=== PATIENT | female | born 1960 | race African-American/Black ===

== ENCOUNTER 2016-12-04 05:17 | Day surgery (SDC) | payer MEDICARE ==
[2016-12-02 08:30] LABS: HEMATOCRIT 31.9 % (36.0-47.0); HEMOGLOBIN 10.4 g/dL (12.0-15.5); HGB HCT DIFFERENCE -0.7; MEAN CORPUSCULAR HEMOGLOBIN 25.3 pg (27.0-33.4); MEAN CORPUSCULAR HGB CONC 32.5 g/dL (32.0-36.0); MEAN CORPUSCULAR VOLUME 78 fl (80-97); RED CELL DISTRIBUTION WIDTH 14.4 % (11.5-14.0); WHITE BLOOD COUNT 6.1 10^3/uL (4.0-10.5)
[2016-12-02 08:50] LABS: ALANINE AMINOTRANSFERASE 78 U/L (9-52); ALBUMIN 4.5 g/dL (3.5-5.0); ALKALINE PHOSPHATASE 112 U/L (38-126); ANION GAP 16 (5-19); ASPARTATE AMINO TRANSFERASE 51 U/L (14-36); BILIRUBIN,DIRECT 0.2 mg/dL (0.0-0.4); BILIRUBIN,TOTAL 0.4 mg/dL (0.2-1.3); BLOOD UREA NITROGEN 20 mg/dL (7-20); CALCIUM 8.8 mg/dL (8.4-10.2); CARBON DIOXIDE 20 mmol/L (22-30); CHLORIDE 101 mmol/L (98-107); CREATININE RESULT 1.52 mg/dL (0.52-1.25); GLUCOSE 148 mg/dL (75-110); POTASSIUM 3.8 mmol/L (3.6-5.0); SODIUM 136.8 mmol/L (137-145); TOTAL PROTEIN 7.6 g/dL (6.3-8.2)
--- NOTE | 2016-12-02 22:06 | EKG REPORT ---
SEVERITY:- ABNORMAL ECG - SINUS OR ECTOPIC ATRIAL TACHYCARDIA NONSPECIFIC INTRAVENTRICULAR CONDUCTION DELAY PROBABLE LEFT VENTRICULAR HYPERTROPHY : Confirmed by: Annamaria Vasquez MD 02-Dec-2016 22:05:59
[~2016-12-04 05:17] MED LIST: CEFAZOLIN 2 GM/D5W RTU 2 GM/50 ML RTUPB IV PRN; LACTATED RINGERS 1000 ML IV PRN
[2016-12-04 06:24] VITALS: BP 124/86
[2016-12-04] MEDS ORDERED: MIDAZOLAM 2 MG/2 ML INJ ONE (07:15)
[2016-12-04] MEDS ORDERED: FENTANYL CITRATE INJ/PF 100 MCG/2 ML AMPUL ONE (07:15)
[2016-12-04] MEDS ORDERED: PROPOFOL INJ 200 MG/20 ML VIAL IV ONE (07:16)
[2016-12-04] MEDS ORDERED: ACETAMINOPHEN 0 ML IV ONE (07:16)
[2016-12-04 08:14] LABS: ANION GAP 18 (5-19); BLOOD UREA NITROGEN 22 mg/dL (7-20); CALCIUM 9.4 mg/dL (8.4-10.2); CARBON DIOXIDE 19 mmol/L (22-30); CHLORIDE 104 mmol/L (98-107); CREATININE RESULT 1.37 mg/dL (0.52-1.25); GLUCOSE 171 mg/dL (75-110); POTASSIUM 3.8 mmol/L (3.6-5.0)
--- NOTE | 2016-12-04 20:17 | XCELERA REPORT ---
[address] [address] Transthoracic Echocardiogram Report Name: VICK NAVARRO Age: 56 yrs Gender: Female : 1960 Patient Status: Outpatient Patient Location: [facility] Study Date: 12/04/2016 08:50 AM Height: 64 in Weight: 278 lb BSA: 2.2 m2 Procedure: A complete two-dimensional transthoracic echocardiogram was performed (2D, M-mode, spectral and color flow Doppler). The study was technically difficult with many images being suboptimal in quality. Reason For Study: EKG changes SOB Ordering Physician: DALILA HACKETT Performed By: Gardenia Delatorre Interpretation Summary The left ventricular ejection fraction is normal. Doppler measurements suggest pseudonormalized left ventricular relaxation, which is associated with grade II/IV or mild to moderate diastolic dysfunction There is borderline concentric left ventricular hypertrophy. The left ventricle is grossly normal size. Wall motion cannot be accurately commented on, but no definite regional wall motion abnormalities noted. The right ventricle is mildly dilated. The right ventricular systolic function is normal. The right atrium is normal in size The left atrial size is normal. There is no aortic valve stenosis No aortic regurgitation is present. There is a trace or physiologic amount of tricuspid regurgitation Tricuspid regurgitation jet envelope not well defined to measure RV systolic pressure accurately. Minimal pericardial effusion. MMode/2D Measurements \T\ Calculations RVDd: 3.2 cm LVIDd: 4.2 cm FS: 49.1 % Ao root diam: 2.8 cm IVSd: 0.96 cm LVIDs: 2.2 cm EDV(Teich): 79.9 ml LVPWd: 0.96 cm ESV(Teich): 15.4 ml Ao root area: 6.1 cm2 EF(Teich): 80.8 % LA dimension: 3.4 cm Doppler Measurements \T\ Calculations MV E max ye: MV P1/2t max ye: Ao V2 max: LV V1 max P.3 cm/sec 89.2 cm/sec 170.3 cm/sec 6.1 mmHg MV A max ye: MV P1/2t: 52.3 msec Ao max PG: LV V1 max: 84.9 cm/sec 11.6 mmHg 123.4 cm/sec MV E/A: 1.0 MVA(P1/2t): 4.2 cm2 MV dec slope: 499.3 cm/sec2 MV dec time: 0.17 sec PA V2 max: 125.0 cm/sec PA max P.3 mmHg Left Ventricle The left ventricle is grossly normal size. There is borderline concentric left ventricular hypertrophy. The left ventricular ejection fraction is normal. Doppler measurements suggest pseudonormalized left ventricular relaxation, which is associated with grade II/IV or mild to moderate diastolic dysfunction. Wall motion cannot be accurately commented on, but no definite regional wall motion abnormalities noted. Right Ventricle The right ventricle is mildly dilated. There is normal right ventricular wall thickness. The right ventricular systolic function is normal. Atria The right atrium is normal in size. The left atrial size is normal. Interarterial septum not well visualized and not well dopplered. Cannot comment on ASD/PFO presence. Mitral Valve The mitral valve is grossly normal. There is no mitral valve stenosis. There is a trace amount of mitral regurgitation. Aortic Valve The aortic valve is grossly normal. There is no aortic valve stenosis. No aortic regurgitation is present. Tricuspid Valve The tricuspid valve is not well visualized, but is grossly normal. There is no tricuspid stenosis. There is a trace or physiologic amount of tricuspid regurgitation. Tricuspid regurgitation jet envelope not well defined to measure RV systolic pressure accurately. Pulmonic Valve The pulmonic valve is not well visualized. Great Vessels The aortic root is not well visualized but is probably normal size. The inferior vena cava was not well visualized. Effusions Minimal pericardial effusion. : DALILA HACKETT > Becca Koehler
--- NOTE | 2016-12-04 22:25 | EKG REPORT ---
SEVERITY:- ABNORMAL ECG - SINUS TACHYCARDIA PROBABLE LEFT ATRIAL ABNORMALITY LEFT VENTRICULAR HYPERTROPHY ANTERIOR Q WAVES, POSSIBLY DUE TO LVH : Confirmed by: Annamaria Vasquez MD 04-Dec-2016 22:24:48
== END 2016-12-04 09:50 | disposition home or self-care (01) ==
LOC: OROUT 05:17
PROVIDERS: ATTEND Specialist
DX: I10 Essential (primary) hypertension (principal); Z53.9 Procedure and treatment not carried out, unspecified reason; Z88.5 Allergy status to narcotic agent; Z88.6 Allergy status to analgesic agent
CPT/HCPCS: 93005 ×2; 86900; 86901; 36415 ×2; 86850; 82962; 85027; 81025; 80048; 80053; 93306; 93010 ×2; J0690; J0131; J2250; J2704; J3010

== ENCOUNTER → 2017-01-27 | Outpatient (CLI) | payer MEDICAID, MEDICARE ==
--- NOTE | 2017-01-27 10:39 | RADIOLOGY REPORT (SQ) ---
EXAM DESCRIPTION: U/S RETROPERITON (RENAL/AORTA) COMPLETED DATE/TIME: 01/27/2017 10:15 am REASON FOR STUDY: CKD III (N18.3) N18.3 CHRONIC KIDNEY DISEASE, STAGE 3 (MODERATE) COMPARISON: None. TECHNIQUE: Dynamic and static grayscale images acquired of the kidneys and bladder and recorded on P ACS. Additional selected color Doppler and spectral images recorded. LIMITATIONS: None. FINDINGS: RIGHT KIDNEY: Normal size. Normal echogenicity. No solid or suspicious masses. No hydronep hrosis. No calcifications. LEFT KIDNEY: Normal size. Normal echogenicity. No solid or suspicious masses. No hydronephrosis. No calcifications. BLADDER: No masses. OTHER FINDINGS: No other significant finding. IMPRESSION: NORMAL RENAL AND BLADDER ULTRASOUND. TECHNICAL DOCUMENTATION: JOB ID: [id number] [email or web address]- All Rights Reserved
== END ==
LOC: RAD 08:45
PROVIDERS: ATTEND Internal Medicine Nephrology
DX: N18.3 Chronic kidney disease, stage 3 (moderate) (principal)
CPT/HCPCS: 76770

== ENCOUNTER → 2017-02-19 | Outpatient (CLI) | payer MEDICARE ==
[2017-02-19 07:48] LABS: HEMATOCRIT 28.5 % (36.0-47.0); HEMOGLOBIN 9.2 g/dL (12.0-15.5); HGB HCT DIFFERENCE -0.9; MEAN CORPUSCULAR HEMOGLOBIN 26.4 pg (27.0-33.4); MEAN CORPUSCULAR HGB CONC 32.3 g/dL (32.0-36.0); MEAN CORPUSCULAR VOLUME 82 fl (80-97); RED BLOOD COUNT 3.48 10^6/uL (3.72-5.28); RED CELL DISTRIBUTION WIDTH 16.3 % (11.5-14.0); WHITE BLOOD COUNT 6.7 10^3/uL (4.0-10.5)
[2017-02-19 07:51] LABS: AMORPHOUS SEDIMENT,URINE TRACE /HPF; APPEARANCE,URINE TURBID; BILIRUBIN,URINE NEGATIVE (NEGATIVE); GLUCOSE, URINE NEGATIVE (NEGATIVE); KETONES,URINE NEGATIVE (NEGATIVE); LEUKOCYTE ESTERASE,URINE MODERATE (NEGATIVE); NITRITE,URINE NEGATIVE (NEGATIVE); PROTEIN,URINE NEGATIVE (NEGATIVE); URINE SPECIFIC GRAVITY 1.003; UROBILINOGEN,URINE NEGATIVE mg/dL (<2.0)
[2017-02-19 07:56] LABS: ALBUMIN 4.2 g/dL (3.5-5.0); ANION GAP 13 (5-19); BLOOD UREA NITROGEN 14 mg/dL (7-20); CALCIUM 9.5 mg/dL (8.4-10.2); CARBON DIOXIDE 23 mmol/L (22-30); CHLORIDE 101 mmol/L (98-107); CREATININE RESULT 1.31 mg/dL (0.52-1.25); GLUCOSE 86 mg/dL (75-110); POTASSIUM 4.4 mmol/L (3.6-5.0); SODIUM 136.7 mmol/L (137-145); TOTAL PROTEIN 7.5 g/dL (6.3-8.2)
[2017-02-19 07:57] LABS: ALANINE AMINOTRANSFERASE 30 U/L (9-52); ALKALINE PHOSPHATASE 65 U/L (38-126); ASPARTATE AMINO TRANSFERASE 15 U/L (14-36); BILIRUBIN,DIRECT 0.3 mg/dL (0.0-0.4); BILIRUBIN,TOTAL 0.6 mg/dL (0.2-1.3)
[2017-02-20 12:37] LABS: CREATININE URINE 68.3 mg/dL (Not Estab.)
[2017-02-21 07:55] LABS: MICROALBUMIN URINE <3.0 ug/mL (Not Estab.)
== END ==
LOC: LAB 07:25
PROVIDERS: ATTEND Internal Medicine Nephrology
DX: I12.9 Hypertensive chronic kidney disease with stage 1 through stage 4 chronic kidney disease, or unspecified chronic kidney disease (principal); N18.3 Chronic kidney disease, stage 3 (moderate); E11.9 Type 2 diabetes mellitus without complications
CPT/HCPCS: 36415; 80053; 81001; 82043; 82570; 85027

== ENCOUNTER → 2017-03-19 | Outpatient (CLI) | payer MEDICARE, MEDICAID ==
[2017-03-19 08:20] LABS: HEMATOCRIT 30.8 % (36.0-47.0); HEMOGLOBIN 9.9 g/dL (12.0-15.5); HGB HCT DIFFERENCE -1.1; MEAN CORPUSCULAR HEMOGLOBIN 26.7 pg (27.0-33.4); MEAN CORPUSCULAR VOLUME 84 fl (80-97); RED BLOOD COUNT 3.69 10^6/uL (3.72-5.28); RED CELL DISTRIBUTION WIDTH 14.6 % (11.5-14.0); WHITE BLOOD COUNT 10.1 10^3/uL (4.0-10.5)
[2017-03-19 08:27] LABS: APPEARANCE,URINE SLIGHTLY-CLOUDY; BILIRUBIN,URINE NEGATIVE (NEGATIVE); GLUCOSE, URINE NEGATIVE (NEGATIVE); KETONES,URINE NEGATIVE (NEGATIVE); LEUKOCYTE ESTERASE,URINE NEGATIVE (NEGATIVE); NITRITE,URINE NEGATIVE (NEGATIVE); PROTEIN,URINE NEGATIVE (NEGATIVE); URINE SPECIFIC GRAVITY 1.012; UROBILINOGEN,URINE NEGATIVE mg/dL (<2.0)
[2017-03-19 08:53] LABS: ANION GAP 16 (5-19); BLOOD UREA NITROGEN 33 mg/dL (7-20); CALCIUM 9.8 mg/dL (8.4-10.2); CARBON DIOXIDE 19 mmol/L (22-30); CHLORIDE 106 mmol/L (98-107); CREATININE RESULT 1.48 mg/dL (0.52-1.25); GLUCOSE 136 mg/dL (75-110); POTASSIUM 4.8 mmol/L (3.6-5.0); SODIUM 140.6 mmol/L (137-145)
[2017-03-22 15:38] LABS: A/G RATIO 0.9 (0.7-1.7); ALBUMIN 2 3.6 g/dL (2.9-4.4); ALPHA-1-GLOBULIN 2 0.2 g/dL (0.0-0.4); GAMMA GLOBULIN 1.4 g/dL (0.4-1.8); PROTEIN TOTAL SERUM 7.6 g/dL (6.0-8.5)
== END ==
LOC: LAB 07:59
PROVIDERS: ATTEND Physician Assistant Medical
DX: E11.22 Type 2 diabetes mellitus with diabetic chronic kidney disease (principal); I12.9 Hypertensive chronic kidney disease with stage 1 through stage 4 chronic kidney disease, or unspecified chronic kidney disease; N18.3 Chronic kidney disease, stage 3 (moderate); D64.9 Anemia, unspecified
CPT/HCPCS: 36415; 80048; 81001; 84165; 85027

== ENCOUNTER → 2017-06-07 | Outpatient (CLI) | payer MEDICARE ==
--- NOTE | 2017-06-09 15:10 | WOMENS IMAGING REPORT ---
EXAM DESCRIPTION: 3D SCREENING MAMMO BILAT COMPLETED DATE/TIME: 06/07/2017 10:33 am REASON FOR STUDY: ROUTINE SCREENING; Z12.31 Z12.31 ENCNTR SCREEN MAMMOGRAM FOR MALIGNANT NEOPLASM O F PRETTY COMPARISON: Multiple since 2011 TECHNIQUE: Standard craniocaudal and mediolateral oblique views of each breast recorded using digita l acquisition and breast tomosynthesis. LIMITATIONS: None. FINDINGS: RIGHT BREAST MASSES: No suspicious masses. CALCIFICATIONS: No new or suspicious calcifications. ARCHITECTURAL DISTORTION: None. DEVELOPING DENSITY: None. ASYMMETRY: None noted. OTHER: No other significant findings. LEFT BREAST MASSES: In the deep central left breast at about the 12 o'clock and 3 o'clock positions, there are 2 well circumscribed low-density mammographic nodules less than a cm in size, likely breast parenchymal cysts. Cone compression views, left breast 90 mediolateral view and ultrasound are recommended for followup CALCIFICATIONS: No new or suspicious calcifications. ARCHITECTURAL DISTORTION: None. DEVELOPING DENSITY: None. ASYMMETRY: None noted. OTHER: No other significant findings. Read with the assistance of CAD. .[facility] - R2 Cenova Version 1.3 .[facility] Imaging - R2 Cenova Version 1.3 .[facility] Imaging - R2 Cenova Version 2.4 .[facility] - R2 Cenova Version 2.4 .[facility] - R2 Door Repairer Bus Version 9.2 IMPRESSION: No mammographic/tomosynthesis evidence for malignancy right breast. Low-density well-circumscribed probably benign nodules in the left breast for which additional cone c ompression views and ultrasound recommended BREAST DENSITY: b. There are scattered areas of fibroglandular density. BIRAD: 0 Incomplete: Needs Additional Imaging Evaluation and/or prior Mammograms for Comparison. RECOMMENDATION: RECOMMENDED FOLLOW-UP: Left breast diagnostic mammograms and ultrasound The patient will be contacted for additional imaging. COMMENT: The patient has been notified of the results by letter per SA requirements. Additional no tification policies are in place for contacting patient with suspicious or incomplete findings. Quality ID #[id number]: The [employer] recommends an annual screening mammogram for women aged 40 years or over. This facility utilizes a reminder system to ensure that all patients receive reminder letters, and/or direct phone calls for appointments. This includes reminders for routine scr eening mammograms, diagnostic mammograms, or other Breast Imaging Interventions when appropriate. Th is patient will be placed in the appropriate reminder system. The [employer] (ACR) has developed recommendations for screening MRI of the breast s in certain patient populations, to be used in conjunction with mammography. Breast MRI surveillanc e may be appropriate for women with more than 20% lifetime risk of developing breast cancer as deter mined by genetic testing, significant family history of the disease, or history of mantle radiation f or Hodgkins Disease. ACR Practice Guidelines 2008. DBT Technology DBT is a type of tomographic mammography. With conventional mammography, overlapping breast tissue ma y make lesions difficult to detect, even with good compression. DBT uses an x-ray tube that rotates a round the breast, taking images at different angles. These images are then combined to create thin sl ices of the breast that the radiologist can view as a 3D reconstruction. The [employer] unit can perform full-field digital mammograms (2D imaging); or DBT (3D imaging); or both, in a combination mode that quickly performs both the mammogram and the tomosynthesis scan while the breast is still compressed. PQRS 6045F: Fluoroscopic imaging is not utilized for breast tomosynthesis. TECHNICAL DOCUMENTATION: FINDING NUMBER: (1) ASSESSMENT: (1) JOB ID: [id number] [employer]- All Rights Reserved
== END ==
LOC: WI 08:59
PROVIDERS: ATTEND Internal Medicine Geriatric Medicine
DX: Z12.31 Encounter for screening mammogram for malignant neoplasm of breast (principal)
CPT/HCPCS: 77063; G0202; 77067

== ENCOUNTER → 2017-06-23 | Outpatient (CLI) | payer MEDICAID, MEDICARE ==
--- NOTE | 2017-06-23 18:11 | WOMENS IMAGING REPORT ---
EXAM DESCRIPTION: LEFT DIAGNOSTIC MAMMO W/CAD; U/S BREAST UNILAT LIMITED COMPLETED DATE/TIME: 06/23/2017 8:55 am; 06/23/2017 9:16 am REASON FOR STUDY: INCONCLUSIVE; R92.8; LEFT BREAST INCONCLUSIVE; R92.8 R92.8 OTH ABN AND INCONCLUSI VE FINDINGS ON DX IMAGING OF PRETTY COMPARISON: Multiple since 2011 TECHNIQUE: Compression craniocaudal and mediolateral oblique images of the breast recorded with digi mikayla acquisition. Left breast 90 mediolateral view. Left breast ultrasound was also performed. LIMITATIONS: None. FINDINGS: BREAST: Left MASSES: Low-density well-circumscribed mammographic nodules are present in the left breast deep centr al region and laterally. These were subsequently demonstrated to be simple cysts at ultrasound. CALCIFICATIONS: No new or suspicious calcifications. ARCHITECTURAL DISTORTION: None. DEVELOPING DENSITY: None. ASYMMETRY: None noted. OTHER: No other significant findings. Read with the assistance of CAD. .[facility] - R2 Cenova Version 1.3 .[facility] Imaging - R2 Cenova Version 1.3 .[facility] Imaging - R2 Cenova Version 2.4 .[facility] - R2 Cenova Version 2.4 .[facility] - R2 Local Driver Version 9.2 Left breast ultrasound: Mammographic nodules described on 06/07/2017 correlate with simple cysts as follows: Left breast 12 o'clock central position 4 mm Left breast 3 o'clock position, 8 mm Left breast 3 o'clock position 4 mm Left breast 11 to 12 o'clock position, 10 mm IMPRESSION: No mammographic or sonographic evidence for malignancy left breast BREAST DENSITY: b. There are scattered areas of fibroglandular density. BIRAD: 2 Benign findings. RECOMMENDATION: RECOMMENDED FOLLOW UP: Please continue yearly bilateral screening mammography in May. Please consider bilateral screening tomosynthesis SPECIFIC INTERVENTION/IMAGING/CONSULTATION RECOMMENDED:No additional intervention/ imaging/consultati on needed at this time. COMMUNICATION:Patient notified by letter COMMENT: The patient has been notified of the results by letter per MQSA requirements. Additional no tification policies are in place for contacting patient with suspicious or incomplete findings. Quality ID #[id number]: The [employer] recommends an annual screening mammogram for women aged 40 years or over. This facility utilizes a reminder system to ensure that all patients receive reminder letters, and/or direct phone calls for appointments. This includes reminders for routine scr eening mammograms, diagnostic mammograms, or other Breast Imaging Interventions when appropriate. Th is patient will be placed in the appropriate reminder system. The [employer] (ACR) has developed recommendations for screening MRI of the breast s in certain patient populations, to be used in conjunction with mammography. Breast MRI surveillanc e may be appropriate for women with more than 20% lifetime risk of developing breast cancer as deter mined by genetic testing, significant family history of the disease, or history of mantle radiation f or Hodgkins Disease. ACR Practice Guidelines 2008. TECHNICAL DOCUMENTATION: FINDING NUMBER: (1) ASSESSMENT: (1) JOB ID: [id number] [employer]- All Rights Reserved
--- NOTE | 2017-06-23 18:11 | WOMENS IMAGING REPORT ---
EXAM DESCRIPTION: LEFT DIAGNOSTIC MAMMO W/CAD; U/S BREAST UNILAT LIMITED COMPLETED DATE/TIME: 06/23/2017 8:55 am; 06/23/2017 9:16 am REASON FOR STUDY: INCONCLUSIVE; R92.8; LEFT BREAST INCONCLUSIVE; R92.8 R92.8 OTH ABN AND INCONCLUSI VE FINDINGS ON DX IMAGING OF PRETTY COMPARISON: Multiple since 2011 TECHNIQUE: Compression craniocaudal and mediolateral oblique images of the breast recorded with digi mikayla acquisition. Left breast 90 mediolateral view. Left breast ultrasound was also performed. LIMITATIONS: None. FINDINGS: BREAST: Left MASSES: Low-density well-circumscribed mammographic nodules are present in the left breast deep centr al region and laterally. These were subsequently demonstrated to be simple cysts at ultrasound. CALCIFICATIONS: No new or suspicious calcifications. ARCHITECTURAL DISTORTION: None. DEVELOPING DENSITY: None. ASYMMETRY: None noted. OTHER: No other significant findings. Read with the assistance of CAD. .[facility] - R2 Cenova Version 1.3 .[facility] Imaging - R2 Cenova Version 1.3 .[facility] Imaging - R2 Cenova Version 2.4 .[facility] - R2 Cenova Version 2.4 .[facility] - R2 Sand Blaster Version 9.2 Left breast ultrasound: Mammographic nodules described on 06/07/2017 correlate with simple cysts as follows: Left breast 12 o'clock central position 4 mm Left breast 3 o'clock position, 8 mm Left breast 3 o'clock position 4 mm Left breast 11 to 12 o'clock position, 10 mm IMPRESSION: No mammographic or sonographic evidence for malignancy left breast BREAST DENSITY: b. There are scattered areas of fibroglandular density. BIRAD: 2 Benign findings. RECOMMENDATION: RECOMMENDED FOLLOW UP: Please continue yearly bilateral screening mammography in May. Please consider bilateral screening tomosynthesis SPECIFIC INTERVENTION/IMAGING/CONSULTATION RECOMMENDED:No additional intervention/ imaging/consultati on needed at this time. COMMUNICATION:Patient notified by letter COMMENT: The patient has been notified of the results by letter per MQSA requirements. Additional no tification policies are in place for contacting patient with suspicious or incomplete findings. Quality ID #[id number]: The [employer] recommends an annual screening mammogram for women aged 40 years or over. This facility utilizes a reminder system to ensure that all patients receive reminder letters, and/or direct phone calls for appointments. This includes reminders for routine scr eening mammograms, diagnostic mammograms, or other Breast Imaging Interventions when appropriate. Th is patient will be placed in the appropriate reminder system. The [employer] (ACR) has developed recommendations for screening MRI of the breast s in certain patient populations, to be used in conjunction with mammography. Breast MRI surveillanc e may be appropriate for women with more than 20% lifetime risk of developing breast cancer as deter mined by genetic testing, significant family history of the disease, or history of mantle radiation f or Hodgkins Disease. ACR Practice Guidelines 2008. TECHNICAL DOCUMENTATION: FINDING NUMBER: (1) ASSESSMENT: (1) JOB ID: [id number] [email or web address]- All Rights Reserved
== END ==
LOC: WI 08:26
PROVIDERS: ATTEND Internal Medicine Geriatric Medicine
DX: N60.02 Solitary cyst of left breast (principal)
CPT/HCPCS: 76642; G0206

== ENCOUNTER → 2017-07-09 | Outpatient (CLI) | payer MEDICARE ==
[2017-07-09 08:27] LABS: HEMATOCRIT 29.7 % (36.0-47.0); HEMOGLOBIN 9.8 g/dL (12.0-15.5); HGB HCT DIFFERENCE -0.3; MEAN CORPUSCULAR HEMOGLOBIN 27.4 pg (27.0-33.4); MEAN CORPUSCULAR HGB CONC 32.9 g/dL (32.0-36.0); MEAN CORPUSCULAR VOLUME 83 fl (80-97); RED BLOOD COUNT 3.57 10^6/uL (3.72-5.28); RED CELL DISTRIBUTION WIDTH 14.3 % (11.5-14.0); WHITE BLOOD COUNT 8.3 10^3/uL (4.0-10.5)
[2017-07-09 08:42] LABS: AMORPHOUS SEDIMENT,URINE TRACE /HPF; APPEARANCE,URINE CLOUDY; BILIRUBIN,URINE NEGATIVE (NEGATIVE); GLUCOSE, URINE NEGATIVE (NEGATIVE); KETONES,URINE NEGATIVE (NEGATIVE); LEUKOCYTE ESTERASE,URINE LARGE (NEGATIVE); NITRITE,URINE NEGATIVE (NEGATIVE); PROTEIN,URINE NEGATIVE (NEGATIVE); URINE SPECIFIC GRAVITY 1.005; UROBILINOGEN,URINE NEGATIVE mg/dL (<2.0)
[2017-07-09 08:57] LABS: ANION GAP 14 (5-19); BLOOD UREA NITROGEN 10 mg/dL (7-20); CALCIUM 9.1 mg/dL (8.4-10.2); CARBON DIOXIDE 27 mmol/L (22-30); CHLORIDE 103 mmol/L (98-107); CREATININE RESULT 1.46 mg/dL (0.52-1.25); GLUCOSE 127 mg/dL (75-110); POTASSIUM 4.3 mmol/L (3.6-5.0); SODIUM 143.6 mmol/L (137-145)
== END ==
LOC: LAB 08:10
PROVIDERS: ATTEND Physician Assistant Medical
DX: E11.22 Type 2 diabetes mellitus with diabetic chronic kidney disease (principal); I12.9 Hypertensive chronic kidney disease with stage 1 through stage 4 chronic kidney disease, or unspecified chronic kidney disease; N18.3 Chronic kidney disease, stage 3 (moderate); D64.9 Anemia, unspecified
CPT/HCPCS: 36415; 80048; 81001; 82728; 83540; 83550; 85027

== ENCOUNTER 2017-07-16 08:44 | Day surgery (SDC) | payer MEDICAID, MEDICARE ==
[2017-07-09 10:59] LABS: HEMATOCRIT 31.1 % (36.0-47.0); HEMOGLOBIN 10.2 g/dL (12.0-15.5); HGB HCT DIFFERENCE -0.5; MEAN CORPUSCULAR HEMOGLOBIN 27.5 pg (27.0-33.4); MEAN CORPUSCULAR HGB CONC 32.8 g/dL (32.0-36.0); MEAN CORPUSCULAR VOLUME 84 fl (80-97); RED BLOOD COUNT 3.71 10^6/uL (3.72-5.28); RED CELL DISTRIBUTION WIDTH 14.6 % (11.5-14.0); WHITE BLOOD COUNT 8.7 10^3/uL (4.0-10.5)
[~2017-07-16 08:44] MED LIST changes: -CEFAZOLIN 2 GM/D5W RTU 2 GM/50 ML RTUPB IV PRN; +LIDOCAINE 0.5% INJ-PF (5 MG/ML) 50 ML SDV SUBCUT PRN
[2017-07-16] MEDS ORDERED: ACETAMINOPHEN 100 ML IV ONE (10:40)
[2017-07-16] MEDS ORDERED: EPHEDRINE SULFATE INJ 50 MG/1 ML AMPULE ONE (10:40)
[2017-07-16] MEDS ORDERED: FENTANYL CITRATE INJ/PF 100 MCG/2 ML AMPUL ONE (10:40)
[2017-07-16] MEDS ORDERED: PROPOFOL INJ 200 MG/20 ML VIAL IV ONE (10:40)
[2017-07-16] MEDS ORDERED: MIDAZOLAM 2 MG/2 ML INJ ONE (10:40)
[2017-07-16] MEDS ORDERED: IBUPROFEN INJ 800 MG/8 ML VIAL IV ONE (10:41)
[2017-07-16] MEDS ORDERED: ONDANSETRON HCL INJ/PF 4 MG/2 ML SDV IV PRN (11:22)
[2017-07-16] MEDS ORDERED: DIPHENHYDRAMINE HCL 50 MG/ML VIAL IV PRN (11:22)
[2017-07-16] MEDS ORDERED: FENTANYL CITRATE INJ/PF 100 MCG/2 ML AMPUL IV PRN ×3 (11:22)
[2017-07-16] MEDS ORDERED: PROMETHAZINE HCL INJ 25 MG/1 ML VIAL IV PRN ×2 (11:22)
[2017-07-16] MEDS ORDERED: MEPERIDINE HCL/PF INJ 25 MG/1 ML DISP.SYRIN IV PRN (11:22)
--- NOTE | 2017-07-16 11:49 | Operative Report ---
Operative Report DATE OF SURGERY: 07/16/17 PREOPERATIVE DIAGNOSIS: Postmenopausal bleeding POSTOPERATIVE DIAGNOSIS: Same plus uterine polyp OPERATION: Hysteroscopy D&C myosure SURGEON: IVETH ISABEL ANESTHESIA: GA TISSUE REMOVED OR ALTERED: Uterine polyp as well as endocervical curetting COMPLICATIONS: None ESTIMATED BLOOD LOSS: 10 cc INTRAOPERATIVE FINDINGS: Small polyp on the posterior uterine wall PROCEDURE: Patient was taken the OR and placed in supine position. General anesthesia was induced. She is placed in dorsolithotomy position using Jonh stirrups. Perineum was prepared and draped in sterile fashion. A speculum was placed in the vagina and the anterior lip cervix was grasped with tenaculum. Uterus was sounded to 8 cm before and after the case. Cervix was dilated allowing a hysteroscope to be placed. The entire uterine cavity appeared atrophic there was a polyp on the posterior wall of the uterus. The Lester device was inserted and the polyp was removed easily. Endocervical curetting was also obtained. At the end of the case all instruments were removed. There was some bleeding from the tenaculum site and a [id number] suture was placed to stop this bleeding using a 3-0 chromic. The patient was extubated and taken to recovery in stable condition. Thank you
[2017-07-16 13:59] VITALS: BP 130/81
[2017-07-16] MEDS ORDERED: METOCLOPRAMIDE HCL INJ/PF 10 MG/2 ML SDV ONE (14:19)
[2017-07-16] MEDS ORDERED: SUCCINYLCHOLINE CHLORIDE INJ 200 MG/10 ML VIAL ONE (14:19)
[2017-07-16] MEDS ORDERED: ONDANSETRON HCL INJ/PF 4 MG/2 ML SDV ONE (14:19)
[2017-07-16] MEDS ORDERED: LIDOCAINE 2% INJ-PF (20 MG/ML) 2 ML AMPUL ONE (14:19)
== END 2017-07-16 13:40 | disposition home or self-care (01) ==
LOC: OROUT 08:44
PROVIDERS: ATTEND Obstetrics & Gynecology
PROC: 0UDB8ZX Extraction of Endometrium, Via Natural or Artificial Opening Endoscopic, Diagnostic (ICD-10-PCS; 2017-07-16)
PROC: 0UB98ZX Excision of Uterus, Via Natural or Artificial Opening Endoscopic, Diagnostic (ICD-10-PCS; principal; 2017-07-16 11:15)
DX: N95.0 Postmenopausal bleeding (principal); N84.0 Polyp of corpus uteri; I10 Essential (primary) hypertension; F32.9 Major depressive disorder, single episode, unspecified; E66.01 Morbid (severe) obesity due to excess calories; Z79.84 Long term (current) use of oral hypoglycemic drugs; Z79.891 Long term (current) use of opiate analgesic; Z79.82 Long term (current) use of aspirin; Z88.5 Allergy status to narcotic agent; Z68.43 Body mass index [BMI] 50.0-59.9, adult
CPT/HCPCS: 36415 ×2; 82962; 84132; 85027; 88305 ×2; 58558; J2250; J3010; J2765; J0330; J2405; J2704; J0131; J1741; J3490; 952

== ENCOUNTER → 2017-08-05 | Outpatient (CLI) | payer MEDICARE, MEDICAID ==
[2017-08-05 08:42] LABS: HEMATOCRIT 29.4 % (36.0-47.0); HEMOGLOBIN 9.7 g/dL (12.0-15.5); HGB HCT DIFFERENCE -0.3; MEAN CORPUSCULAR HEMOGLOBIN 27.6 pg (27.0-33.4); MEAN CORPUSCULAR HGB CONC 32.9 g/dL (32.0-36.0); MEAN CORPUSCULAR VOLUME 84 fl (80-97); RED BLOOD COUNT 3.51 10^6/uL (3.72-5.28); RED CELL DISTRIBUTION WIDTH 14.9 % (11.5-14.0); WHITE BLOOD COUNT 6.5 10^3/uL (4.0-10.5)
[2017-08-05 09:10] LABS: ANION GAP 14 (5-19); BLOOD UREA NITROGEN 18 mg/dL (7-20); CALCIUM 9.7 mg/dL (8.4-10.2); CARBON DIOXIDE 23 mmol/L (22-30); CHLORIDE 108 mmol/L (98-107); CREATININE RESULT 1.42 mg/dL (0.52-1.25); GLUCOSE 139 mg/dL (75-110); POTASSIUM 4.9 mmol/L (3.6-5.0); SODIUM 144.7 mmol/L (137-145)
== END ==
LOC: LAB 08:27
PROVIDERS: ATTEND Physician Assistant Medical
DX: I12.9 Hypertensive chronic kidney disease with stage 1 through stage 4 chronic kidney disease, or unspecified chronic kidney disease (principal); N18.3 Chronic kidney disease, stage 3 (moderate); E11.9 Type 2 diabetes mellitus without complications; D64.9 Anemia, unspecified
CPT/HCPCS: 36415; 80048; 85027

== ENCOUNTER 2017-09-17 10:43 | Emergency (ER) | payer MEDICARE, MEDICAID ==
--- NOTE | 2017-09-17 11:23 | ER Document Report ---
ED Medical Screen (RME) - General Chief Complaint: Fall Injury Stated Complaint: FALL BREAST PAIN Time Seen by Provider: 09/17/17 11:00 Mode of Arrival: Ambulatory Information source: Patient TRAVEL OUTSIDE OF THE [place] IN LAST 30 DAYS: No - HPI Onset: Other - weeks Onset/Duration: Gradual Notes: 09/17/17 11:21 Patient arrives with complaints of bilateral leg swelling from the knees down with exertional shortness of breath for the last week. Patient has a history of kidney disease as well as hypertension and diabetes. States that she is currently on diuretics. She reports that she is currently gaining weight. She also reports that she had a fall 2016 days ago, but denies any injury to her legs. She denies any current chest pain at this time. - Related Data Allergies/Adverse Reactions: codeine [Codeine] Allergy (Severe, Verified 07/08/17 16:52) swelling,sob naproxen [Naproxen] Allergy (Severe, Verified 07/08/17 16:52) swelling,sob Past Medical History - Past Medical History Cardiac Medical History: Reports: Hx Hypertension - ON MEDICATION Denies: Hx Congestive Heart Failure, Hx Coronary Artery Disease, Hx Heart Attack Pulmonary Medical History: Denies: Hx Asthma, Hx Bronchitis, Hx COPD, Hx Pneumonia Neurological Medical History: Denies: Hx Cerebrovascular Accident, Hx Seizures Endocrine Medical History: Reports: Hx Diabetes Mellitus Type 2 Renal/ Medical History: Denies: Hx Peritoneal Dialysis Musculoskeltal Medical History: Reports Hx Arthritis - KNEE PAIN (BILATERAL) Psychiatric Medical History: Reports: Hx Bipolar Disorder, Hx Schizophrenia Past Surgical History: Denies: Hx Hysterectomy - Immunizations Hx Diphtheria, Pertussis, Tetanus Vaccination: No History of Influenza Vaccine for 05/2017 - 10/2017 Season: Yes Influenza Administration Date for 05/2017 - 10/2017 Season: 06/30/17 Physical Exam - Notes Notes: Patient is noted to have pitting edema from the knees down. Normal pulse and sensation. No distress at this time.
--- NOTE | 2017-09-17 11:59 | RADIOLOGY REPORT (SQ) ---
EXAM DESCRIPTION: CHEST SINGLE VIEW COMPLETED DATE/TIME: 09/17/2017 11:45 am REASON FOR STUDY: sob, leg swelling COMPARISON: Two-view chest 12/06/2015 EXAM PARAMETERS: NUMBER OF VIEWS: One view. TECHNIQUE: Single frontal radiographic view of the chest acquired. RADIATION DOSE: NA LIMITATIONS: None. FINDINGS: LUNGS AND PLEURA: No opacities, masses or pneumothorax. No pleural effusion. MEDIASTINUM AND HILAR STRUCTURES: No masses. Contour normal. HEART AND VASCULAR STRUCTURES: Heart normal in size. Normal vasculature. BONES: No acute findings. HARDWARE: None in the chest. OTHER: No other significant finding. IMPRESSION: NO ACUTE RADIOGRAPHIC FINDING IN THE CHEST. TECHNICAL DOCUMENTATION: JOB ID: [id number] [employer]- All Rights Reserved
[2017-09-17 12:14] LABS: ABSOLUTE BASOPHILS # (AUTO) 0.1 10^3/uL (0.0-0.2); ABSOLUTE LYMPHOCYTES (AUTO) 0.7 10^3/uL (0.5-4.7); ABSOLUTE MONOCYTES (AUTO) 0.7 10^3/uL (0.1-1.4); ABSOLUTE NEUT (AUTO) 7.5 10^3/uL (1.7-8.2); BASOPHILS % (AUTO) 0.6 % (0-2); EOSINOPHILS % (AUTO) 0.3 % (0-6); HEMATOCRIT 28.8 % (36.0-47.0); HEMOGLOBIN 9.3 g/dL (12.0-15.5); LYMPHOCYTES % (AUTO) 7.4 % (13-45); MEAN CORPUSCULAR HEMOGLOBIN 27.2 pg (27.0-33.4); MEAN CORPUSCULAR HGB CONC 32.2 g/dL (32.0-36.0); MEAN CORPUSCULAR VOLUME 84 fl (80-97); MONOCYTES % (AUTO) 7.7 % (3-13); PLATELET COUNT 232 10^3/uL (150-450); RED BLOOD COUNT 3.41 10^6/uL (3.72-5.28); TOTAL CELLS COUNTED % (AUTO) 100 %; WHITE BLOOD COUNT 8.9 10^3/uL (4.0-10.5)
[2017-09-17] MEDS ORDERED: NORMAL SALINE 1000 ML 1,000 ML IV ONE (12:29)
[2017-09-17 12:37] LABS: ALANINE AMINOTRANSFERASE 28 U/L (9-52); ALBUMIN 4.6 g/dL (3.5-5.0); ALKALINE PHOSPHATASE 65 U/L (38-126); ANION GAP 13 (5-19); ASPARTATE AMINO TRANSFERASE 26 U/L (14-36); BILIRUBIN,DIRECT 0.3 mg/dL (0.0-0.4); BILIRUBIN,TOTAL 0.5 mg/dL (0.2-1.3); BLOOD UREA NITROGEN 19 mg/dL (7-20); CALCIUM 9.6 mg/dL (8.4-10.2); CARBON DIOXIDE 27 mmol/L (22-30); CHLORIDE 91 mmol/L (98-107); CREATINE KINASE 193 U/L (30-135); GLUCOSE 211 mg/dL (75-110); SODIUM 131.1 mmol/L (137-145); TOTAL PROTEIN 7.7 g/dL (6.3-8.2)
[2017-09-17 12:49] LABS: TROPONIN I < 0.012 ng/mL
--- NOTE | 2017-09-17 13:45 | ER Document Report ---
ED General - General Chief Complaint: Fall Injury Stated Complaint: FALL BREAST PAIN Time Seen by Provider: 09/17/17 11:00 Mode of Arrival: Ambulatory TRAVEL OUTSIDE OF THE [place] IN LAST 30 DAYS: No - HPI Patient complains to provider of: fallSeptember 01 Quality of pain: Achy Associated symptoms: Other - Bilateral ankle pain, mild low back pain Exacerbated by: Movement Relieved by: Denies Similar symptoms previously: No Recently seen / treated by doctor: No Notes: States that she fell September 01 landing on her bottom. She states that she did not hit her head and has no loss of consciousness. Patient complained of mild pain in her buttock area as well as bilateral ankle pain. Denied any other complaints at this time. - Related Data Allergies/Adverse Reactions: codeine [Codeine] Allergy (Severe, Verified 07/08/17 16:52) swelling,sob naproxen [Naproxen] Allergy (Severe, Verified 07/08/17 16:52) swelling,sob Past Medical History - General Information source: Patient - Social History Smoking Status: Unknown if Ever Smoked Chew tobacco use (# tins/day): No Frequency of alcohol use: None Drug Abuse: None Family History: Reviewed & Not Pertinent Patient has suicidal ideation: No Patient has homicidal ideation: No - Past Medical History Cardiac Medical History: Reports: Hx Hypertension - ON MEDICATION Denies: Hx Congestive Heart Failure, Hx Coronary Artery Disease, Hx Heart Attack Pulmonary Medical History: Denies: Hx Asthma, Hx Bronchitis, Hx COPD, Hx Pneumonia Neurological Medical History: Denies: Hx Cerebrovascular Accident, Hx Seizures Endocrine Medical History: Reports: Hx Diabetes Mellitus Type 2 Renal/ Medical History: Denies: Hx Peritoneal Dialysis Malignancy Medical History: Reports: None GI Medical History: Reports: None Musculoskeltal Medical History: Reports Hx Arthritis - KNEE PAIN (BILATERAL) Psychiatric Medical History: Reports: Hx Bipolar Disorder, Hx Schizophrenia Traumatic Medical History: Reports: None Past Surgical History: Reports: None. Denies: Hx Hysterectomy - Immunizations Hx Diphtheria, Pertussis, Tetanus Vaccination: No Review of Systems - Review of Systems Constitutional: No symptoms reported EENT: No symptoms reported Cardiovascular: No symptoms reported Respiratory: No symptoms reported Gastrointestinal: No symptoms reported Genitourinary: No symptoms reported Female Genitourinary: No symptoms reported Musculoskeletal: Muscle stiffness - Low back Hematologic/Lymphatic: Other - Bruise right breast after fall Neurological/Psychological: No symptoms reported Physical Exam - Vital signs Vitals: Pulse Ox 98 09/17/17 12:02 Course - Re-evaluation Re-evalutation: 09/17/17 13:50 Patient is tachycardic at just over 100. I did look at her previous ED visits and she was tachycardic there as well on 12/04/2016 she was 112 - Vital Signs Vital signs: Temp Pulse Resp BP Pulse Ox 22 H 131/74 H 100 09/17/17 13:45 09/17/17 13:45 09/17/17 13:45 - Laboratory Result Diagrams: 09/17/17 11:58 09/17/17 11:58 Laboratory results interpreted by me: 09/17/17 09/17/17 11:58 11:58 RBC 3.41 L Hgb 9.3 L Hct 28.8 L Seg Neutrophils % 84.0 H Lymphocytes % 7.4 L Sodium 131.1 L Chloride 91 L Creatinine 1.26 H Est GFR ( Amer) 53 L Est GFR (Non-Af Amer) 44 L Glucose 211 H Creatine Kinase 193 H - Diagnostic Test Radiology reviewed: Image reviewed, Reports reviewed Radiology results interpreted by me: 09/17/17 13:48 Diagnostic report text EXAM DESCRIPTION: ANKLE BILATERAL 3 VIEWS MIN COMPLETED DATE/TIME: 09/17/2017 1:32 pm REASON FOR STUDY: fall/pain COMPARISON: None. NUMBER OF VIEWS: Three views of each ankle TECHNIQUE: AP, lateral, and oblique radiographic images acquired of the right and left ankle. LIMITATIONS: None. FINDINGS: MINERALIZATION: Normal. BONES: No acute fracture or dislocation. No worrisome bone lesions. JOINTS: No effusions. SOFT TISSUES: Bilateral soft tissue swelling is identified. OTHER: No other significant finding. IMPRESSION: Soft tissue swelling without evidence for fracture. TECHNICAL DOCUMENTATION: JOB ID: [id number] [employer]- All Rights Reserved Dictated by: ELOISA COLBERT MD [id number] Chest x-ray without any acute findings - EKG Interpretation by [facility] EKG shows normal: Sinus rhythm - 106 Rate: Normal When compared to previous EKG there are: No significant change - c/w ekg 12/04/16 Discharge - Discharge Clinical Impression: Fall, Hyponatremia Disposition: HOME, SELF-CARE Instructions: Hyponatremia ([facility]) Additional Instructions: Please follow-up with the primary medical doctor in the next few days. You need repeat blood work in approximately 1 week to check your sodium. Prescriptions: Hydrochlorothiazide 12.5 mg PO DAILY 14 Days #14 capsule Referrals: ANNIE REDMAN MD [Primary Care Provider] - Follow up tomorrow (Call your primary medical doctor's office in the morning for follow-up appointment in the next few days.)
[2017-09-17 14:52] VITALS: BP 129/84
--- NOTE | 2017-09-18 10:19 | EKG REPORT ---
SEVERITY:- ABNORMAL ECG - SINUS TACHYCARDIA NONSPECIFIC INTRAVENTRICULAR CONDUCTION DELAY LEFT VENTRICULAR HYPERTROPHY : Confirmed by: Becca Koehler 18-Sep-2017 10:17:55
== END 2017-09-17 14:52 | disposition home or self-care (01) ==
LOC: ER 10:43
DX: S20.01XA Contusion of right breast, initial encounter (principal); M25.571 Pain in right ankle and joints of right foot; M25.572 Pain in left ankle and joints of left foot; M54.5 Low back pain; W00.0XXA Fall on same level due to ice and snow, initial encounter; E87.1 Hypo-osmolality and hyponatremia; E11.9 Type 2 diabetes mellitus without complications; I10 Essential (primary) hypertension; Z88.5 Allergy status to narcotic agent; Z88.8 Allergy status to other drugs, medicaments and biological substances; R00.0 Tachycardia, unspecified
CPT/HCPCS: 93005; 99284; 96360; 36415; 82553; 82550; 85025; 80053; 84484; 71045; 73610; 93010; J7030

== ENCOUNTER → 2017-11-10 | Outpatient (CLI) | payer MEDICARE, MEDICAID ==
[2017-11-10 10:07] LABS: HEMATOCRIT 27.8 % (36.0-47.0); MEAN CORPUSCULAR HGB CONC 32.3 g/dL (32.0-36.0); MEAN CORPUSCULAR VOLUME 84 fl (80-97); PLATELET COUNT 253 10^3/uL (150-450); RED BLOOD COUNT 3.32 10^6/uL (3.72-5.28)
[2017-11-10 10:16] LABS: AMORPHOUS SEDIMENT,URINE TRACE /HPF; APPEARANCE,URINE CLOUDY; BILIRUBIN,URINE NEGATIVE (NEGATIVE); COLOR,URINE YELLOW; GLUCOSE, URINE NEGATIVE (NEGATIVE); KETONES,URINE NEGATIVE (NEGATIVE); LEUKOCYTE ESTERASE,URINE LARGE (NEGATIVE); NITRITE,URINE NEGATIVE (NEGATIVE); PROTEIN,URINE NEGATIVE (NEGATIVE); URINE SPECIFIC GRAVITY 1.005; UROBILINOGEN,URINE NEGATIVE mg/dL (<2.0)
[2017-11-10 10:19] LABS: ANION GAP 13 (5-19); BLOOD UREA NITROGEN 26 mg/dL (7-20); CALCIUM 9.9 mg/dL (8.4-10.2); CARBON DIOXIDE 26 mmol/L (22-30); CHLORIDE 102 mmol/L (98-107); GLUCOSE 87 mg/dL (75-110); POTASSIUM 4.6 mmol/L (3.6-5.0); SODIUM 140.5 mmol/L (137-145)
== END ==
LOC: LAB 09:48
PROVIDERS: ATTEND Physician Assistant Medical
DX: I12.9 Hypertensive chronic kidney disease with stage 1 through stage 4 chronic kidney disease, or unspecified chronic kidney disease (principal); N18.3 Chronic kidney disease, stage 3 (moderate); D64.9 Anemia, unspecified; E11.9 Type 2 diabetes mellitus without complications
CPT/HCPCS: 36415; 80048; 81001; 82728; 83540; 83550; 85027

== ENCOUNTER 2018-01-03 15:00 | Emergency (ER) | payer MEDICARE, MEDICAID ==
[2018-01-03 15:14] VITALS: BP 105/60
[2018-01-03] MEDS ORDERED: HYDROCODONE/ACETAMINOPHEN 5-325 MG TABLET PO ONE (16:19)
--- NOTE | 2018-01-03 16:26 | ER Document Report ---
ED Extremity Problem, Lower - General Chief Complaint: Knee Pain Stated Complaint: FALL/LEFT KNEE Time Seen by Provider: 01/03/18 16:07 Mode of Arrival: Ambulatory Information source: Patient TRAVEL OUTSIDE OF THE [place] IN LAST 30 DAYS: No - HPI Patient complains to provider of: Injury Location: Leg Occurred: Last week Where: Home Notes: Patient is here with complaints of left knee and foot pain. She states that she was walking at home when she tripped and fell and hit her left lower leg on a chair. She has had pain just below the knee with weightbearing since this occurred. She also complains of pain to the left foot. She denies striking her head. No numbness, [place], weakness. No fever. No redness. She is able to ambulate but with pain. She is using a cane at this time to help with ambulation. Pain is worse with ambulation and weightbearing, better with rest. She denies any other injuries or any other complaints at this time. - Related Data Allergies/Adverse Reactions: codeine [Codeine] Allergy (Severe, Verified 07/08/17 16:52) swelling,sob naproxen [Naproxen] Allergy (Severe, Verified 07/08/17 16:52) swelling,sob Past Medical History - Social History Smoking Status: Never Smoker Chew tobacco use (# tins/day): No Frequency of alcohol use: None Drug Abuse: None Family History: Reviewed & Not Pertinent Patient has suicidal ideation: No Patient has homicidal ideation: No - Past Medical History Cardiac Medical History: Reports: Hx Hypertension - ON MEDICATION Denies: Hx Congestive Heart Failure, Hx Coronary Artery Disease, Hx Heart Attack Pulmonary Medical History: Denies: Hx Asthma, Hx Bronchitis, Hx COPD, Hx Pneumonia Neurological Medical History: Denies: Hx Cerebrovascular Accident, Hx Seizures Endocrine Medical History: Reports: Hx Diabetes Mellitus Type 2 Renal/ Medical History: Denies: Hx Peritoneal Dialysis Musculoskeltal Medical History: Reports Hx Arthritis - KNEE PAIN (BILATERAL) Psychiatric Medical History: Reports: Hx Bipolar Disorder, Hx Schizophrenia Past Surgical History: Denies: Hx Hysterectomy - Immunizations Hx Diphtheria, Pertussis, Tetanus Vaccination: No Review of Systems - Review of Systems -: Yes All other systems reviewed and negative Physical Exam - Vital signs Vitals: Temp Pulse Resp BP Pulse Ox 98.0 F 91 16 105/60 90 L 01/03/18 15:11 01/03/18 15:11 01/03/18 15:11 01/03/18 15:11 01/03/18 15:11 - Notes Notes: GENERAL: alert, cooperative, nontoxic, no distress. HEAD: normocephalic, atraumatic EYES: conjunctiva pink without discharge, no external redness or swelling. EARS: no external swelling, no external redness NOSE: atraumatic, no external swelling MOUTH/THROAT: mucous membranes moist and pink NECK: soft, supple, full range of motion, no meningismus. CHEST: no distress, lungs clear and equal throughout. No wheezing, rales, rhonchi. CARDIAC: regular rate and rhythm, no murmur, normal capillary refill, normal pulses. BACK: full range of motion, no CVA tenderness. EXTREMITIES: Tenderness to palpation of the proximal tib-fib. Full extension of the knee. No obvious ligament instability. Ankle exam is benign with no tenderness. Tenderness of the dorsum of the left foot. Normal pulse and sensation distally. Achilles is intact with a normal Hernandez's test. Compartments are soft. Hip exam is unremarkable. NEURO: alert and oriented 3, no focal deficits, full range of motion of all extremities. PYSCH: appropriate mood, affect. Patient is cooperative. SKIN: pink, warm, dry, no rash. Course - Re-evaluation Re-evalutation: 01/03/18 16:22 Patient is nontoxic appearing with stable vitals. Is here with complaints of left knee and left foot pain after falling last week. Pain is worse with weightbearing. She is a benign exam aside from tenderness to the left proximal tib-fib and dorsum of her foot. X-ray of the foot is unremarkable, x-ray of the knee shows a proximal tibial fracture. Patient has a normal neurovascular exam. She will be placed in a long-leg posterior splint as a knee immobilizer would not appropriately fit her due to her body habitus. She will be given a prescription for a walker as well as [place]. Follow-up with orthopedics at the next available appointment, sooner for increasing pain, fever, numbness, tingling, weakness, any further concerns. The patient's emergency department workup and current diagnosis were explained to the patient and or family. Follow-up instructions were provided. Medications if prescribed were discussed. Instructions for when to return to the emergency department including specific worrisome symptoms were discussed with the patient and/or family. - Vital Signs Vital signs: Temp Pulse Resp BP Pulse Ox 98.0 F 91 16 105/60 90 L 01/03/18 15:11 01/03/18 15:11 01/03/18 15:11 01/03/18 15:11 01/03/18 15:11 - Diagnostic Test Radiology reviewed: Image reviewed - Left foot negative. Left knee with proximal tibia fracture. Procedures - Immobilization Left leg Pre-Proc Neuro Vasc Exam: Normal Immobilizer type: Long leg posterior Performed by: PCT Post-Proc Neuro Vasc Exam: Normal Alignment checked and good: Yes Discharge - Discharge Clinical Impression: Closed left tibial fracture Qualifiers: Encounter type: initial encounter Tibia location: proximal Fracture morphology : unspecified fracture morphology Qualified Code(s): S82.102A - Unspecified fracture of upper end of left tibia, initial encounter for closed fracture Condition: Stable Disposition: HOME, SELF-CARE Instructions: Ice & Elevation ([facility]), Knee Immobilizing Splint ([facility]), Oral Narcotic Medication ([facility]), Fractured Tibia ([facility]) Additional Instructions: Take medications as prescribed. Wear splint and use walker with no weightbearing until he follow-up with orthopedics. Call tomorrow to make an appointment. Ice her sore area. Follow-up sooner for increasing pain, fever, numbness, tingling, weakness, any further concerns. The medication you were prescribed today may cause drowsiness. Do not drive or operate heavy machinery while taking this medication. Prescriptions: Hydrocodone/Acetaminophen [[place] 5-325 mg Tablet] 2 tab PO Q6H PRN #15 tab PRN Reason: Referrals: PADILLA DAVILA DO [ACTIVE STAFF] - Follow up as needed
--- NOTE | 2018-01-03 16:27 | RADIOLOGY REPORT (SQ) ---
EXAM DESCRIPTION: KNEE LEFT 4 VIEW COMPLETED DATE/TIME: 01/03/2018 4:00 pm REASON FOR STUDY: fall, pain COMPARISON: None. NUMBER OF VIEWS: Four views. TECHNIQUE: AP, lateral, and both oblique radiographic images acquired of the left knee. LIMITATIONS: None. FINDINGS: MINERALIZATION: Normal. BONES: Nondisplaced fracture medial margin proximal tibial metaphysis. JOINT: No effusion. SOFT TISSUES: No soft tissue swelling. No radio-opaque foreign body. OTHER: No other significant finding. IMPRESSION: Nondisplaced fracture proximal tibia. TECHNICAL DOCUMENTATION: JOB ID: [id number] [employer]- All Rights Reserved Reading location - IP/workstation name: [email or web address]
--- NOTE | 2018-01-03 16:28 | RADIOLOGY REPORT (SQ) ---
EXAM DESCRIPTION: FOOT LEFT COMPLETE COMPLETED DATE/TIME: 01/03/2018 4:00 pm REASON FOR STUDY: fall, pain COMPARISON: None. NUMBER OF VIEWS: Three views. TECHNIQUE: AP, lateral and oblique radiographic images acquired of the left foot. LIMITATIONS: None. FINDINGS: MINERALIZATION: Normal. BONES: No acute fracture or dislocation. No worrisome bone lesions. JOINTS: No effusions. SOFT TISSUES: No soft tissue swelling. No foreign body. OTHER: No other significant finding. IMPRESSION: NO RADIOGRAPHIC EVIDENCE OF ACUTE INJURY. TECHNICAL DOCUMENTATION: JOB ID: [id number] [employer]- All Rights Reserved Reading location - IP/workstation name: [email or web address]
== END 2018-01-03 16:48 | disposition home or self-care (01) ==
LOC: ER 15:00
DX: S82.102A Unspecified fracture of upper end of left tibia, initial encounter for closed fracture (principal); M79.672 Pain in left foot; W01.190A Fall on same level from slipping, tripping and stumbling with subsequent striking against furniture, initial encounter; Y93.01 Activity, walking, marching and hiking; Y92.009 Unspecified place in unspecified non-institutional (private) residence as the place of occurrence of the external cause; I10 Essential (primary) hypertension; E11.9 Type 2 diabetes mellitus without complications; Z88.5 Allergy status to narcotic agent; Z88.8 Allergy status to other drugs, medicaments and biological substances
CPT/HCPCS: 99283; 73630; 73562; 29505; A9270

== ENCOUNTER 2018-01-05 13:38 | Inpatient (IN) | payer MEDICARE, MEDICAID ==
--- NOTE | 2018-01-05 13:59 | EKG REPORT ---
SEVERITY:- OTHERWISE NORMAL ECG - SINUS TACHYCARDIA : Confirmed by: Isac Fuller MD 05-Jan-2018 13:58:58
[2018-01-05] MEDS ORDERED: HYDROMORPHONE HCL INJ/PF 2 MG/ML AMPULE IV ONE (14:11)
--- NOTE | 2018-01-05 14:18 | ER Document Report ---
ED General - General Chief Complaint: Chest Pain Stated Complaint: DIFFICULTY BREATHING Time Seen by Provider: 01/05/18 14:09 TRAVEL OUTSIDE OF THE [place] IN LAST 30 DAYS: No - HPI Notes: 57-year-old female with recent fall and subsequent proximal tibia fracture presents with chest pain and dyspnea. Patient describes relatively rapid onset of a chest pressure, substernal, nonradiating but pleuritic, started this morning around 10 AM. She has some associated dyspnea as well. Pain at times she later indicated will radiate to her back. No fever chills or sweats, equivocal cough. No other modifying factors, no other associated symptoms, no other provocative or palliative factors. - Related Data Allergies/Adverse Reactions: codeine [Codeine] Allergy (Severe, Verified 01/05/18 14:32) swelling,sob naproxen [Naproxen] Allergy (Severe, Verified 01/05/18 14:32) swelling,sob Past Medical History - Social History Smoking Status: Unknown if Ever Smoked Family History: Reviewed & Not Pertinent Patient has suicidal ideation: No Patient has homicidal ideation: No - Past Medical History Cardiac Medical History: Reports: Hx Hypertension - ON MEDICATION Denies: Hx Congestive Heart Failure, Hx Coronary Artery Disease, Hx Heart Attack Pulmonary Medical History: Denies: Hx Asthma, Hx Bronchitis, Hx COPD, Hx Pneumonia Neurological Medical History: Denies: Hx Cerebrovascular Accident, Hx Seizures Endocrine Medical History: Reports: Hx Diabetes Mellitus Type 2 Renal/ Medical History: Denies: Hx Peritoneal Dialysis Musculoskeltal Medical History: Reports Hx Arthritis - KNEE PAIN (BILATERAL) Psychiatric Medical History: Reports: Hx Bipolar Disorder, Hx Schizophrenia Past Surgical History: Denies: Hx Hysterectomy - Immunizations Hx Diphtheria, Pertussis, Tetanus Vaccination: No Review of Systems - Review of Systems Notes: Review of systems as in the history of present illness, otherwise negative. Physical Exam - Vital signs Vitals: Resp 20 01/05/18 13:47 - Notes Notes: General: Well developed . Morbidly obese HEENT: Normocephalic, atraumatic. Pupils equal round reactive to light. No JVD. Chest: No trauma. Respiratory: Fair air exchange, normal excursion. Cardiac: Regular rhythm. No murmurs or gallops. Abdomen: Soft, benign. Nondistended. Nontender. Back: No asymmetry or gross abnormality. Motor: Grossly normal power and tone. Neurologic: Alert, nonfocal. Cranial nerves II-12 are intact. Sensation intact. Vascular: Well perfused. Normal peripheral pulses. Skin: No petechiae or purpura. Extremities: Splint noted in the left lower extremity. Toes are well perfused. No palpable venous cord. No gross asymmetry Course - Re-evaluation Re-evalutation: 01/05/18 14:17 , Certainly increased risk for venous thromboembolic disease. Consider esophageal spasm, atypical chest pain, ACS, pneumonia or other etiology. Plan to proceed with basic labs, ECG, d-dimer screening, will treat with IV analgesics, reassess. 01/05/18 15:41 Labs reviewed, CBC unremarkable. Chronic renal insufficiency is noted, otherwise chemistries are normal. Of note, d-dimer is elevated. Given the patient's elevated d-dimer in the face of increased risk of venous thromboembolic disease, we will proceed with rule out of PE. However, her elevated creatinine precludes contrasted CT. We are attempting to arrange a pulmonary perfusion scan. She will also be admitted to her primary care doctor to arrange for possible rehab with her leg, rule out of acute coronary syndrome and further evaluation. Primary care doctor is aware of the VQ scan and will follow. - Vital Signs Vital signs: Temp Pulse Resp BP Pulse Ox 98.0 F 17 100/57 L 96 01/05/18 13:51 01/05/18 14:01 01/05/18 14:00 01/05/18 14:01 - Laboratory Result Diagrams: 01/05/18 14:25 01/05/18 14:25 Laboratory results interpreted by me: 01/05/18 01/05/18 01/05/18 14:25 14:25 14:25 RBC 3.34 L Hgb 9.2 L Hct 27.2 L RDW 14.5 H D-Dimer 0.72 H Chloride 95 L BUN 56 H Creatinine 2.63 H Est GFR ( Amer) 23 L Est GFR (Non-Af Amer) 19 L Discharge - Discharge Clinical Impression: Chest pain Qualifiers: Chest pain type: unspecified Qualified Code(s): R07.9 - Chest pain, unspecified Condition: Serious Disposition: ADMITTED OBSERVATION Admitting Provider: Santosh Unit Admitted: Telemetry Referrals: ANNIE REDMAN MD [Primary Care Provider] - Follow up as needed
[2018-01-05 14:40] LABS: HEMATOCRIT 27.2 % (36.0-47.0); HEMOGLOBIN 9.2 g/dL (12.0-15.5); MEAN CORPUSCULAR HEMOGLOBIN 27.5 pg (27.0-33.4); MEAN CORPUSCULAR HGB CONC 33.8 g/dL (32.0-36.0); MEAN CORPUSCULAR VOLUME 81 fl (80-97); PLATELET COUNT 234 10^3/uL (150-450); RED BLOOD COUNT 3.34 10^6/uL (3.72-5.28); RED CELL DISTRIBUTION WIDTH 14.5 % (11.5-14.0)
[2018-01-05 14:47] LABS: INTERNATIONAL RATION (INR) 1.05; PROTHROMBIN TIME 14.2 SEC (11.4-15.4)
[2018-01-05 14:49] LABS: D-DIMER 0.72 ug/mL (0.00-0.50)
[2018-01-05 14:58] LABS: ANION GAP 18 (5-19); BLOOD UREA NITROGEN 56 mg/dL (7-20); CALCIUM 10.1 mg/dL (8.4-10.2); CARBON DIOXIDE 25 mmol/L (22-30); CHLORIDE 95 mmol/L (98-107); GLUCOSE 105 mg/dL (75-110); POTASSIUM 4.6 mmol/L (3.6-5.0); SODIUM 138.2 mmol/L (137-145)
--- NOTE | 2018-01-05 15:16 | RADIOLOGY REPORT (SQ) ---
EXAM DESCRIPTION: CHEST SINGLE VIEW COMPLETED DATE/TIME: 01/05/2018 3:01 pm REASON FOR STUDY: Dyspnea and chest pain COMPARISON: 09/17/2017 EXAM PARAMETERS: NUMBER OF VIEWS: One view. TECHNIQUE: Single frontal radiographic view of the chest acquired. RADIATION DOSE: NA LIMITATIONS: None. FINDINGS: LUNGS AND PLEURA: Relatively low lung volumes. No acute infiltrate or pleural effusion. MEDIASTINUM AND HILAR STRUCTURES: No masses. Contour normal. HEART AND VASCULAR STRUCTURES: Heart size is borderline. Mild pulmonary vascular congestion. These findings are accentuated by the low lung volumes. BONES: No acute findings. HARDWARE: None in the chest. OTHER: No other significant finding. IMPRESSION: Borderline cardiomegaly without CHF. TECHNICAL DOCUMENTATION: JOB ID: [id number] [employer]- All Rights Reserved Reading location - IP/workstation name: [email or web address]
--- NOTE | 2018-01-05 16:54 | RADIOLOGY REPORT (SQ) ---
EXAM DESCRIPTION: NM LUNG VENT/PERF SCAN COMPLETED DATE/TIME: 01/05/2018 4:41 pm REASON FOR STUDY: Dyspnea,elevated D-Dimer and creatinine COMPARISON: Chest x-ray dated 01/05/2018 RADIONUCLIDE AND DOSE: 4.99 millicuries TC-99m MAA Intravenous 32.1 millicuries TC-99m DTPA Inhaled aerosol TECHNIQUE: Eight views of the lungs acquired post ventilation of DTPA aerosol. Eight matching views of the lungs acquired following injection of MAA. LIMITATIONS: None. FINDINGS: VENTILATION: Symmetric and homogeneous distribution of DTPA aerosol during ventilatory pha se. No significant areas of photopenia. PERFUSION: Perfusion images with normal homogenous activity and no wedge-shaped or segmental defects. No ventilation-perfusion mismatches. OTHER: No other significant finding. IMPRESSION: NORMAL VENTILATION-PERFUSION LUNG SCAN. NEGATIVE FOR PULMONARY EMBOLI. TECHNICAL DOCUMENTATION: JOB ID: [id number] [employer]- All Rights Reserved Reading location - IP/workstation name: [email or web address]
[2018-01-05] MEDS ORDERED: GLUCAGON,HUMAN RECOMB 1 MG INJ IM PRN (18:55)
[2018-01-05] MEDS ORDERED: DEXTROSE 50%-WATER 25 GM/50 ML DISP.SYRIN IV PRN ×2 (18:55)
[2018-01-05] MEDS ORDERED: DEXTROSE 40% GEL 15 GM TUBE PO PRN ×2 (18:55)
--- NOTE | 2018-01-05 18:55 | PDOC H&P ---
History of Present Illness Admission Date/PCP: 01/05/18 15:49 ANNIE OSUNKARNULFOJulia Patient complains of: Difficulty with breathing History of Present Illness: VICK NAVARRO is a 57 year old female known to my practice who presented to the ED with complain of new onset difficulty with breathing. symptom started couple of hours prior to her arrival. She was recently diagnosed with right proximal tibia fracture follow a fall incident at her on on 12/31/17. She was seen at this facility ED on 01/03/18 with instruction to follow up with orthopedic for casting. Family reported that patient have been virtually immobile and needed two person assist to transfer. She reported associated intermittent coughing with chest pain that radiate to her back. She denied any fever or chills. She localized her pain to sternal region. She denied any nausea , vomiting abdominal pain or significant reflux. Her initial evaluation in the ED was significant for concern about possible Pulmonary embolism in view of her presenting symptoms and immobility from recent fracture. Her chemistry did suggest acute renal injury. Her VQ scan was subsequently reported negative for pulmonary embolism. She was advised hospitalization for further evaluation of her shortness of breath with chest pain. Her morbidities include Hypertension, CAD, Diabetes Mellitus Type 2, Osteoarthritis, Bipolar Disorder, Schizophrenia, and morbid obesity. Past Medical History Cardiac Medical History: Reports: Hypertension - ON MEDICATION Denies: Congestive Heart Failure, Coronary Artery Disease, Myocardial Infarction Pulmonary Medical History: Denies: Asthma, Bronchitis, Chronic Obstructive Pulmonary Disease (COPD), Pneumonia Neurological Medical History: Denies: Seizures Endocrine Medical History: Reports: Diabetes Mellitus Type 2 Musculoskeltal Medical History: Reports: Arthritis - KNEE PAIN (BILATERAL) Psychiatric Medical History: Reports: Bipolar Disorder Hematology: Reports: Anemia - HX OF Past Surgical History Past Surgical History: Denies: Hysterectomy Social History Smoking Status: Unknown if Ever Smoked Frequency of Alcohol Use: None Hx Recreational Drug Use: No Hx Prescription Drug Abuse: No - Advance Directive Resuscitation Status: Full Code Family History Family History: Reviewed & Not Pertinent Parental Family History Reviewed: Yes Children Family History Reviewed: Yes Sibling(s) Family History Reviewed.: Yes Medication/Allergy Home Medications: Aripiprazole [Abilify] 20 mg PO DAILY 01/05/18 Fluticasone Propionate [Flonase Nasal [place] 50 Mcg/[place] 16 gm] 1 spray NASL BIDP PRN 01/05/18 Furosemide [Lasix 20 mg Tablet] 20 mg PO DAILY 01/05/18 Glipizide [Glipizide Xl] 10 mg PO BID 01/05/18 Losartan/Hydrochlorothiazide [Losartan-Hctz 50-12.5 mg Tab] 1 tab PO DAILY 01/05 Paliperidone [Invega] 9 mg PO DAILY 01/05/18 Pioglitazone HCl [Actos] 30 mg PO DAILY 01/05/18 Tramadol HCl [Ultram 50 mg Tablet] 50 mg PO Q12HP PRN 01/05/18 Allergies/Adverse Reactions: codeine [Codeine] Allergy (Severe, Verified 01/05/18 14:32) swelling,sob naproxen [Naproxen] Allergy (Severe, Verified 01/05/18 14:32) swelling,sob Review of Systems Constitutional: ABSENT: chills, fever(s), headache(s), weight gain, weight loss Eyes: ABSENT: visual disturbances Ears: ABSENT: hearing changes Nose, Mouth, and Throat: ABSENT: as per HPI, headache(s), mouth pain, sore throat, vertigo, other Cardiovascular: PRESENT: chest pain, dyspnea on exertion Respiratory: PRESENT: cough, dyspnea Gastrointestinal: ABSENT: abdominal pain, constipation, diarrhea, hematemesis, hematochezia, nausea, vomiting Musculoskeletal: PRESENT: deformity - left lower extremity in external immobilizer Integumentary: ABSENT: rash, wounds Neurological: PRESENT: abnormal gait. ABSENT: abnormal speech, confusion, dizziness, focal weakness, syncope Endocrine: ABSENT: cold intolerance, heat intolerance, menstrual abnormalities, polydipsia, polyuria Hematologic/Lymphatic: ABSENT: easy bleeding, easy bruising, lymphadenopathy Physical Exam Vital Signs: Temp Pulse Resp BP Pulse Ox 98.2 F 115 H 20 124/65 97 01/05/18 17:59 01/05/18 17:59 01/05/18 17:59 01/05/18 17:59 01/05/18 17:59 Intake & Output 01/04/18 01/05/18 01/06/18 06:59 06:59 06:59 Weight 152.1 kg General appearance: PRESENT: morbidly obese Head exam: PRESENT: atraumatic, normocephalic Eye exam: PRESENT: conjunctiva pink, EOMI, PERRLA. ABSENT: scleral icterus Ear exam: PRESENT: normal external ear exam Mouth exam: PRESENT: moist, tongue midline Teeth exam: ABSENT: dental caries, dental tenderness, edentulous, poor dentation , other Throat exam: ABSENT: post pharyngeal erythema, tonsillar erythema, tonsillar exudate, tonsillogmegaly, other Neck exam: PRESENT: full ROM. ABSENT: carotid bruit, JVD, lymphadenopathy, thyromegaly Respiratory exam: PRESENT: clear to auscultation guru, decreased breath sounds - at lung bases Cardiovascular exam: PRESENT: RRR. ABSENT: diastolic murmur, rubs, systolic murmur Pulses: PRESENT: normal dorsalis pedis pul - except left lower extremity due to external immobilizer, +2 pedal pulses bilateral - except left lower extremity due to external immobilizer Vascular exam: PRESENT: normal capillary refill GI/Abdominal exam: PRESENT: distended, normal bowel sounds, soft. ABSENT: guarding, mass, organolmegaly, rebound, tenderness Rectal exam: PRESENT: deferred Extremities exam: PRESENT: tenderness - left leg site of recent fracture. ABSENT: pedal edema Musculoskeletal exam: PRESENT: deformity - left leg from recent tibial fracture , tenderness - left leg from recent tibial fractiure Neurological exam: PRESENT: alert, awake, oriented to person, oriented to place , oriented to time, oriented to situation, CN II-XII grossly intact. ABSENT: motor sensory deficit Psychiatric exam: PRESENT: appropriate affect, normal mood. ABSENT: homicidal ideation, suicidal ideation Results Laboratory Results: I reviewed her lab results on [employer] and form significant part of my medical decision making. Impressions: Chest X-Ray 01/05/18 14:11 IMPRESSION: Borderline cardiomegaly without CHF. Lung Scan-VQ NM 01/05/18 15:11 IMPRESSION: NORMAL VENTILATION-PERFUSION LUNG SCAN. NEGATIVE FOR PULMONARY EMBOLI. Assessment & Plan - Diagnosis (1) Dyspnea Qualifiers: Dyspnea type: shortness of breath Qualified Code(s): R06.02 - Shortness of breath; R06.00 - Dyspnea, unspecified; R06.01 - Orthopnea Is this a current diagnosis for this admission?: Yes Plan: See admitting attending physician orders. (2) Chest pain with moderate risk of acute coronary syndrome Is this a current diagnosis for this admission?: Yes Plan: See admitting attending physician orders. (3) Acute renal injury Is this a current diagnosis for this admission?: Yes Plan: See admitting attending orders (4) Closed left tibial fracture Qualifiers: Encounter type: initial encounter Tibia location: proximal Fracture morphology: unspecified fracture morphology Qualified Code(s): S82.102A - Unspecified fracture of upper end of left tibia, initial encounter for closed fracture (5) Diabetes mellitus type 2 in obese Is this a current diagnosis for this admission?: Yes Plan: See admitting attending physician orders. (6) HTN (hypertension) Qualifiers: Hypertension type: essential hypertension Qualified Code(s): I10 - Essential (primary) hypertension Is this a current diagnosis for this admission?: Yes Plan: See admitting attending physician orders. (7) CAD (coronary artery disease) Qualifiers: Coronary Disease-Associated Artery/Lesion type: [place] artery [place] vs. transplanted heart: [place] heart Associated angina: without angina Qualified Code(s): I25.10 - Atherosclerotic heart disease of [place] coronary artery without angina pectoris Is this a current diagnosis for this admission?: Yes Plan: See admitting attending physician orders. (8) Schizoaffective disorder, bipolar type Is this a current diagnosis for this admission?: Yes Plan: See admitting attending physician orders. - Time Time Spent: 50 to 70 Minutes Medications reviewed and adjusted accordingly: Yes Anticipated discharge: SNF Within: Other - Inpatient Certification Based on my medical assessment, after consideration of the patient's comorbidities, presenting symptoms, or acuity I expect that the services needed warrant INPATIENT care.: Yes I certify that my determination is in accordance with my understanding of Medicare's requirements for reasonable and necessary INPATIENT services [42 CFR 412.3e].: Yes Medical Necessity: Need Close Monitoring Due to Risk of Patient Decompensation, Need For IV Fluids, Need For Continuous Telemetry Monitoring, Need for Pain Control, Risk of Complication if Not Cared For in Hospital Post Hospital Care: D/C or Transfer Summary - Plan Summary Plan Summary: See admitting attending physician orders.
[2018-01-05] MEDS: NORMAL SALINE 1000 ML 1,000 ML IV PRN (19:49)
[2018-01-05 20:19] LABS: CREATINE KINASE MB 5.18 ng/mL (<4.55)
[2018-01-05 20:26] LABS: TROPONIN I < 0.012 ng/mL
[2018-01-05] MEDS: HYDROMORPHONE HCL INJ/PF 2 MG/ML AMPULE IV PRN (21:27)
[2018-01-06 02:07] LABS: CREATINE KINASE MB 4.62 ng/mL (<4.55); TROPONIN I 0.012 ng/mL
[2018-01-06] MEDS: NORMAL SALINE 1000 ML 1,000 ML IV PRN (05:55)
[2018-01-06] MEDS ORDERED: LANSOPRAZOLE 30 MG TAB.RAP.DR PO SCH (06:00)
--- NOTE | 2018-01-06 06:01 | RADIOLOGY REPORT (SQ) ---
EXAM DESCRIPTION: XR FOOT 2 VIEWS BILATERAL, XR TIBIA FIBULA 2 VIEWS BILATERAL CLINICAL HISTORY: 57 years Female, Pain, recent fall COMPARISON: 01-03-2018 Views: 10 Findings: No significant change in alignment of previously demonstrated proximal left tibial fracture site, 01-03-18. Small osteophytes of the right medial knee compartment. Moderate swelling of the bilateral lower leg. Small bilateral plantar enthesophytes. Pre- and postsplint imaging. Remainder of bilateral lower legs and feet appear intact. IMPRESSION: Fracture follow-up.
--- NOTE | 2018-01-06 07:20 | PDOC CONSULTATION ---
Consultation Consult Date: 01/06/18 Consult reason:: Left tibial plateau fracture History of Present Illness Admission Date/PCP: 01/05/18 15:49 ANNIE ЮЛИЯ History of Present Illness: VICK NAVARRO is a 57 year old female with a myriad of medical comorbidities and significant obesity who fell the first week in December and presumably sustained a left proximal tibial injury at that time. She was evaluated in emergency room where a nondisplaced fracture was identified. She was to follow-up with orthopedics but progressive functional problems necessitated admission. Orthopedics is now consulted for fracture management. Past Medical History Cardiac Medical History: Reports: Hypertension - ON MEDICATION Denies: Congestive Heart Failure, Coronary Artery Disease, Myocardial Infarction Pulmonary Medical History: Denies: Asthma, Bronchitis, Chronic Obstructive Pulmonary Disease (COPD), Pneumonia Neurological Medical History: Denies: Seizures Endocrine Medical History: Reports: Diabetes Mellitus Type 2 Musculoskeltal Medical History: Reports: Arthritis - KNEE PAIN (BILATERAL) Psychiatric Medical History: Reports: Bipolar Disorder, Depression Hematology: Reports: Anemia - HX OF Past Surgical History Past Surgical History: Reports: None Denies: Hysterectomy Social History Information Source: Patient, [facility] Records Smoking Status: Unknown if Ever Smoked Frequency of Alcohol Use: None Hx Recreational Drug Use: No Hx Prescription Drug Abuse: No - Advance Directive Resuscitation Status: Full Code Family History Family History: Reviewed & Not Pertinent Parental Family History Reviewed: No Children Family History Reviewed: No Sibling(s) Family History Reviewed.: No Medication/Allergy Home Medications: Aripiprazole [Abilify] 20 mg PO DAILY 01/05/18 Aspirin [Aspirin EC] 81 mg PO DAILY 01/05/18 Fluticasone Propionate [Flonase Nasal [place] 50 Mcg/[place] 16 gm] 1 spray NASL BIDP PRN 01/05/18 Furosemide [Lasix 20 mg Tablet] 20 mg PO DAILY 01/05/18 Glipizide [Glipizide Xl] 10 mg PO BID 01/05/18 Ibuprofen 600 mg PO Q6H PRN 01/05/18 Loratadine 10 mg PO DAILY 01/05/18 Losartan/Hydrochlorothiazide [Hyzaar 100-12.5 Tablet] 1 tab PO DAILY 01/05/18 Paliperidone [Invega] 9 mg PO DAILY 01/05/18 Pioglitazone HCl [Actos] 30 mg PO DAILY 01/05/18 Tramadol HCl [Ultram 50 mg Tablet] 50 mg PO Q12HP PRN 01/05/18 Allergies/Adverse Reactions: codeine [Codeine] Allergy (Severe, Verified 01/05/18 18:57) swelling,sob naproxen [Naproxen] Allergy (Severe, Verified 01/05/18 18:57) swelling,sob cinnamon Allergy (Intermediate, Verified 01/05/18 18:59) Urticaria Review of Systems All systems: as per PMH Physical Exam Vital Signs: Temp Pulse Resp BP Pulse Ox 36.8 C 101 H 17 109/44 L 99 01/05/18 23:48 01/06/18 02:00 01/05/18 23:48 01/05/18 23:48 01/05/18 23:48 Intake & Output 01/05/18 01/06/18 01/07/18 06:59 06:59 06:59 Intake Total 1540 Output Total 310 Balance 1230 Weight 152 kg General appearance: PRESENT: no acute distress, morbidly obese, obese Head exam: PRESENT: normocephalic Respiratory exam: PRESENT: unlabored Cardiovascular exam: PRESENT: RRR Vascular exam: PRESENT: normal capillary refill GI/Abdominal exam: PRESENT: soft Rectal exam: PRESENT: deferred Extremities exam: PRESENT: other - Left lower extremity and a below-knee splint. Tenderness to palpation about the medial aspect of the tibial plateau. Difficult to tell whether or not there is no underlying effusion. Range of motion is not assessed. Distal neurovascular examination is intact. Neurological exam: PRESENT: alert, awake Skin exam: PRESENT: dry, intact, warm. ABSENT: cyanosis, rash Results Laboratory Results: 01/05/18 01/05/18 01/06/18 19:40 19:40 01:26 Creatine Kinase 1561 H 1582 H CK-MB (CK-2) 5.18 H Troponin I < 0.012 01/06/18 01:26 Creatine Kinase CK-MB (CK-2) 4.62 H Troponin I 0.012 Impressions: Foot X-Ray 01/05/18 00:00 IMPRESSION: Fracture follow-up. Tibia/Fibula X-Ray 01/05/18 00:00 IMPRESSION: Fracture follow-up. Chest X-Ray 01/05/18 14:11 IMPRESSION: Borderline cardiomegaly without CHF. Lung Scan-VQ NM 01/05/18 15:11 IMPRESSION: NORMAL VENTILATION-PERFUSION LUNG SCAN. NEGATIVE FOR PULMONARY EMBOLI. Status: Imported from PACS Assessment & Plan - Diagnosis (1) Closed left tibial fracture Qualifiers: Encounter type: initial encounter Tibia location: proximal Fracture morphology: unspecified fracture morphology Qualified Code(s): S82.102A - Unspecified fracture of upper end of left tibia, initial encounter for closed fracture Is this a current diagnosis for this admission?: Yes Plan: 57-year-old black female with a presumed nondisplaced left tibial plateau fracture following a fall within the last week. This is something that can be treated nonoperatively. I placed an order for the brace shop to supply a knee immobilizer. This will be difficult because the patient's size I realized I think it is appropriate way to mobilize lower extremity. Once the knee immobilizer has been placed the patient can be mobilized with physical therapy on a touchdown weightbearing restriction on the left lower extremity. - Time Time Spent: 50 to 70 Minutes Anticipated discharge: Other Within: Other
--- NOTE | 2018-01-06 08:00 | PDOC PROGRESS REPORT ---
Subjective Progress Note for:: 01/06/18 Subjective:: Patient denied any chest pain. Breathing is improving. No fever or chills. No significant coughing. Orthopedic presales consultant input and recommendation noted. Fasting accuchek was 102mg/dL. Remain on IV fluid therapy. Pain is satisfactorily controlled. Reason For Visit: LEFT PROXIMAL TIBIA CLOSED FRACTURE S/P FALL, Physical Exam Vital Signs: Temp Pulse Resp BP Pulse Ox 98.2 F 98 17 109/44 L 99 01/05/18 23:48 01/06/18 07:00 01/05/18 23:48 01/05/18 23:48 01/05/18 23:48 Intake & Output 01/05/18 01/06/18 01/07/18 06:59 06:59 06:59 Intake Total 1540 Output Total 310 Balance 1230 Weight 152 kg General appearance: PRESENT: no acute distress, morbidly obese Head exam: PRESENT: atraumatic, normocephalic Mouth exam: PRESENT: moist Respiratory exam: PRESENT: clear to auscultation guru, decreased breath sounds - at lung bases, probably due to body habitus Cardiovascular exam: PRESENT: RRR. ABSENT: diastolic murmur, rubs, systolic murmur GI/Abdominal exam: PRESENT: normal bowel sounds, soft Extremities exam: PRESENT: tenderness - left leg due to recent fracture. ABSENT : pedal edema Musculoskeletal exam: PRESENT: tenderness - left leg due to recent fracture Neurological exam: PRESENT: alert, awake, oriented to person, oriented to place , oriented to time, oriented to situation, CN II-XII grossly intact. ABSENT: motor sensory deficit Skin exam: PRESENT: dry, warm Results Laboratory Results: 01/05/18 01/05/18 01/06/18 19:40 19:40 01:26 Creatine Kinase 1561 H 1582 H CK-MB (CK-2) 5.18 H Troponin I < 0.012 01/06/18 01:26 Creatine Kinase CK-MB (CK-2) 4.62 H Troponin I 0.012 Impressions: Foot X-Ray 01/05/18 00:00 IMPRESSION: Fracture follow-up. Tibia/Fibula X-Ray 01/05/18 00:00 IMPRESSION: Fracture follow-up. Chest X-Ray 01/05/18 14:11 IMPRESSION: Borderline cardiomegaly without CHF. Lung Scan-VQ NM 01/05/18 15:11 IMPRESSION: NORMAL VENTILATION-PERFUSION LUNG SCAN. NEGATIVE FOR PULMONARY EMBOLI. Assessment & Plan - Diagnosis (1) Dyspnea Qualifiers: Dyspnea type: shortness of breath Qualified Code(s): R06.02 - Shortness of breath; R06.00 - Dyspnea, unspecified; R06.01 - Orthopnea Is this a current diagnosis for this admission?: Yes (2) Chest pain with moderate risk of acute coronary syndrome Is this a current diagnosis for this admission?: Yes (3) Acute renal injury Is this a current diagnosis for this admission?: Yes (4) Closed left tibial fracture Qualifiers: Encounter type: initial encounter Tibia location: proximal Fracture morphology: unspecified fracture morphology Qualified Code(s): S82.102A - Unspecified fracture of upper end of left tibia, initial encounter for closed fracture Is this a current diagnosis for this admission?: Yes (5) Diabetes mellitus type 2 in obese Is this a current diagnosis for this admission?: Yes (6) HTN (hypertension) Qualifiers: Hypertension type: essential hypertension Qualified Code(s): I10 - Essential (primary) hypertension Is this a current diagnosis for this admission?: Yes (7) CAD (coronary artery disease) Qualifiers: Coronary Disease-Associated Artery/Lesion type: [place] artery [place] vs. transplanted heart: [place] heart Associated angina: without angina Qualified Code(s): I25.10 - Atherosclerotic heart disease of [place] coronary artery without angina pectoris Is this a current diagnosis for this admission?: Yes (8) Schizoaffective disorder, bipolar type Is this a current diagnosis for this admission?: Yes (9) Rhabdomyolysis Qualifiers: Rhabdomyolysis type: non-traumatic Qualified Code(s): M62.82 - Rhabdomyolysis Is this a current diagnosis for this admission?: Yes Plan: See attending physician orders. - Time Time Spent with patient: 25-34 minutes Medications reviewed and adjusted accordingly: Yes Anticipated discharge: SNF Within: Other - Inpatient Certification Based on my medical assessment, after consideration of the patient's comorbidities, presenting symptoms, or acuity I expect that the services needed warrant INPATIENT care.: Yes I certify that my determination is in accordance with my understanding of Medicare's requirements for reasonable and necessary INPATIENT services [42 CFR 412.3e].: Yes Medical Necessity: Need Close Monitoring Due to Risk of Patient Decompensation, Need For IV Fluids, Need For Continuous Telemetry Monitoring, Need for Pain Control, Risk of Complication if Not Cared For in Hospital Post Hospital Care: D/C [employer] Documentation - Plan Summary Plan Summary: left leg due to recent fracture
[2018-01-06 08:39] LABS: ABSOLUTE EOSINOPHILS # (AUTO) 0.1 10^3/uL (0.0-0.6); ABSOLUTE NEUT (AUTO) 6.4 10^3/uL (1.7-8.2); BASOPHILS % (AUTO) 0.3 % (0-2); EOSINOPHILS % (AUTO) 1.7 % (0-6); HEMATOCRIT 24.6 % (36.0-47.0); HEMOGLOBIN 8.2 g/dL (12.0-15.5); LYMPHOCYTES % (AUTO) 11.9 % (13-45); MEAN CORPUSCULAR HEMOGLOBIN 27.1 pg (27.0-33.4); MEAN CORPUSCULAR HGB CONC 33.2 g/dL (32.0-36.0); MEAN CORPUSCULAR VOLUME 82 fl (80-97); MONOCYTES % (AUTO) 11.8 % (3-13); PLATELET COUNT 216 10^3/uL (150-450); RED BLOOD COUNT 3.01 10^6/uL (3.72-5.28); RED CELL DISTRIBUTION WIDTH 14.6 % (11.5-14.0); SEGMENTED NEUTROPHILS % (AUTO) 74.3 % (42-78); TOTAL CELLS COUNTED % (AUTO) 100 %; WHITE BLOOD COUNT 8.6 10^3/uL (4.0-10.5)
[2018-01-06 09:01] LABS: ANION GAP 16 (5-19); BLOOD UREA NITROGEN 55 mg/dL (7-20); CALCIUM 9.4 mg/dL (8.4-10.2); CARBON DIOXIDE 22 mmol/L (22-30); CHLORIDE 100 mmol/L (98-107); CREATINE KINASE 1578 U/L (30-135); GLUCOSE 91 mg/dL (75-110); POTASSIUM 4.3 mmol/L (3.6-5.0); SODIUM 138.4 mmol/L (137-145)
[2018-01-06 09:10] LABS: CREATINE KINASE MB 3.79 ng/mL (<4.55)
[2018-01-06 09:14] LABS: TROPONIN I < 0.012 ng/mL
[2018-01-06] MEDS: ARIPIPRAZOLE 5 MG TABLET PO SCH (09:31)
[2018-01-06] MEDS: ASPIRIN 81 MG TABLET, ENT COATED PO SCH (09:32)
[2018-01-06] MEDS: ENOXAPARIN SODIUM INJ 40 MG/0.4 ML DISP.SYRIN SUBCUT SCH (09:33)
[2018-01-06] MEDS: GLIPIZIDE XL 5 MG TAB.ER.24 PO SCH ×2 (09:36→18:04)
[2018-01-06] MEDS: LORATADINE 10 MG TABLET PO SCH (09:37)
[2018-01-06] MEDS: PIOGLITAZONE HCL 30 MG TABLET PO SCH (09:40)
[2018-01-06] MEDS: LOSARTAN POTASSIUM 50 MG TABLET PO SCH (09:41)
[2018-01-06] MEDS ORDERED: PALIPERIDONE 9 MG PO SCH (10:00)
[2018-01-06] MEDS ORDERED: (PENDING PHARMACY ID) (Aripiprazole [Abilify] 20 MG) PO SCH (10:00)
[2018-01-06] MEDS ORDERED: (PENDING PHARMACY ID) (Loratadine [Loratadine] 10 MG) PO SCH (10:00)
[2018-01-06] MEDS: PALIPERIDONE 3 MG TAB.ER.24 PO SCH (10:00)
[2018-01-07] MEDS: LANSOPRAZOLE 30 MG TAB.RAP.DR PO SCH (04:59)
[2018-01-07 10:11] LABS: ABSOLUTE EOSINOPHILS # (AUTO) 0.1 10^3/uL (0.0-0.6); ABSOLUTE LYMPHOCYTES (AUTO) 0.9 10^3/uL (0.5-4.7); ABSOLUTE MONOCYTES (AUTO) 0.7 10^3/uL (0.1-1.4); ABSOLUTE NEUT (AUTO) 5.6 10^3/uL (1.7-8.2); BASOPHILS % (AUTO) 0.3 % (0-2); EOSINOPHILS % (AUTO) 1.3 % (0-6); HEMATOCRIT 24.8 % (36.0-47.0); HEMOGLOBIN 8.3 g/dL (12.0-15.5); LYMPHOCYTES % (AUTO) 12.1 % (13-45); MEAN CORPUSCULAR HEMOGLOBIN 27.3 pg (27.0-33.4); MEAN CORPUSCULAR HGB CONC 33.5 g/dL (32.0-36.0); MEAN CORPUSCULAR VOLUME 82 fl (80-97); MONOCYTES % (AUTO) 10.1 % (3-13); PLATELET COUNT 246 10^3/uL (150-450); RED BLOOD COUNT 3.04 10^6/uL (3.72-5.28); RED CELL DISTRIBUTION WIDTH 14.6 % (11.5-14.0); SEGMENTED NEUTROPHILS % (AUTO) 76.2 % (42-78); TOTAL CELLS COUNTED % (AUTO) 100 %; WHITE BLOOD COUNT 7.4 10^3/uL (4.0-10.5)
[2018-01-07 10:44] LABS: ANION GAP 15 (5-19); BLOOD UREA NITROGEN 48 mg/dL (7-20); CALCIUM 9.4 mg/dL (8.4-10.2); CARBON DIOXIDE 25 mmol/L (22-30); CHLORIDE 106 mmol/L (98-107); GLUCOSE 163 mg/dL (75-110); POTASSIUM 4.8 mmol/L (3.6-5.0); SODIUM 145.6 mmol/L (137-145)
[2018-01-07] MEDS: ENOXAPARIN SODIUM INJ 40 MG/0.4 ML DISP.SYRIN SUBCUT SCH (10:51)
[2018-01-07] MEDS: HYDROMORPHONE HCL INJ/PF 2 MG/ML AMPULE IV PRN ×2 (10:51→18:23)
[2018-01-07] MEDS: GLIPIZIDE XL 5 MG TAB.ER.24 PO SCH ×2 (10:51→17:51)
[2018-01-07] MEDS: ASPIRIN 81 MG TABLET, ENT COATED PO SCH (10:52)
[2018-01-07] MEDS: LOSARTAN POTASSIUM 50 MG TABLET PO SCH (10:52)
[2018-01-07] MEDS: LORATADINE 10 MG TABLET PO SCH (10:52)
[2018-01-07] MEDS: PIOGLITAZONE HCL 30 MG TABLET PO SCH (10:53)
[2018-01-07] MEDS: ARIPIPRAZOLE 5 MG TABLET PO SCH (10:53)
[2018-01-07] MEDS: PALIPERIDONE 3 MG TAB.ER.24 PO SCH ×2 (11:00→19:47)
--- NOTE | 2018-01-07 12:29 | XCELERA REPORT ---
[address] [address] Lower Extremity Venous Evaluation Name: VICK NAVARRO Age: 57 yrs Gender: Female : 1960 Patient Status: [facility]: 01/05/2018 08:19 PM Procedure: Color flow and duplex imaging bilaterally of the veins of the lower extremities as well as the Common Femoral veins. Reason For Study: Impaired mobility with SOB, s/p fall with fracture Ordering Physician: ANNIE REDMAN Performed By: Vasiliy Crenshaw Right Sided Venous Evaluation Study challenging due to body habitus. Normal vessel filling wall to wall, compression and augmentation as well as Colour flow down to the infrageniculate veins. Left Sided Venous Evaluation Study challenging due to body habitus. And bandaging. Normal vessel filling wall to wall, compression and augmentation as well as Colour flow down to the Femoral veins. Not able to evaluate the Popliteal and below due to bandaging.. Interpretation Summary No duplex evidence of DVT or obstruction in the bilateral lower extremities. Study limitations as noted above. : ANNIE REDMAN > Jhonny Oliva
[2018-01-07] MEDS: INSULIN LISPRO 100 UNIT/ML 3 ML VIAL SUBCUT PRN (14:02)
--- NOTE | 2018-01-07 14:46 | PDOC PROGRESS REPORT ---
Subjective Progress Note for:: 01/07/18 Subjective:: Patient denied any chest pain or difficulty with breathing. No fever or chills. No nausea, vomiting, or abdominal pain. Participating in physical therapy session. Reason For Visit: LEFT PROXIMAL TIBIA CLOSED FRACTURE S/P FALL, Physical Exam Vital Signs: Temp Pulse Resp BP Pulse Ox 98.2 F 82 18 110/64 100 01/07/18 08:00 01/07/18 08:00 01/07/18 08:00 01/07/18 08:00 01/07/18 08:00 Intake & Output 01/06/18 01/07/18 01/08/18 06:59 06:59 06:59 Intake Total 1540 3874 Output Total 310 200 Balance 1230 3674 Weight 152 kg 157.3 kg Physical Exam: General appearance: PRESENT: no acute distress, morbidly obese Head exam: PRESENT: atraumatic, normocephalic Mouth exam: PRESENT: moist Respiratory exam: PRESENT: clear to auscultation guru, decreased breath sounds - at lung bases, probably due to body habitus Cardiovascular exam: PRESENT: RRR. ABSENT: diastolic murmur, rubs, systolic murmur GI/Abdominal exam: PRESENT: normal bowel sounds, soft Extremities exam: PRESENT: tenderness - left leg due to recent fracture. ABSENT : pedal edema Musculoskeletal exam: PRESENT: tenderness - left leg due to recent fracture Neurological exam: PRESENT: alert, awake, oriented to person, oriented to place , oriented to time, oriented to situation, CN II-XII grossly intact. ABSENT: motor sensory deficit Skin exam: PRESENT: dry, warm Results Laboratory Results: 01/07/18 10:00 01/07/18 10:00 01/07/18 01/07/18 10:00 10:00 WBC 7.4 RBC 3.04 L Hgb 8.3 L Hct 24.8 L MCV 82 MCH 27.3 MCHC 33.5 RDW 14.6 H Plt Count 246 Seg Neutrophils % 76.2 Lymphocytes % 12.1 L Monocytes % 10.1 Eosinophils % 1.3 Basophils % 0.3 Absolute Neutrophils 5.6 Absolute Lymphocytes 0.9 Absolute Monocytes 0.7 Absolute Eosinophils 0.1 Absolute Basophils 0.0 Sodium 145.6 H Potassium 4.8 Chloride 106 Carbon Dioxide 25 Anion Gap 15 BUN 48 H Creatinine 1.73 H Est GFR ( Amer) 37 L Est GFR (Non-Af Amer) 30 L Glucose 163 H Calcium 9.4 01/05/18 01/05/18 01/06/18 19:40 19:40 01:26 Creatine Kinase 1561 H 1582 H CK-MB (CK-2) 5.18 H Troponin I < 0.012 01/06/18 01/06/18 01/06/18 01:26 07:21 07:21 Creatine Kinase 1578 H CK-MB (CK-2) 4.62 H 3.79 Troponin I 0.012 < 0.012 Impressions: Foot X-Ray 01/05/18 00:00 IMPRESSION: Fracture follow-up. Tibia/Fibula X-Ray 01/05/18 00:00 IMPRESSION: Fracture follow-up. Chest X-Ray 01/05/18 14:11 IMPRESSION: Borderline cardiomegaly without CHF. Lung Scan-VQ NM 01/05/18 15:11 IMPRESSION: NORMAL VENTILATION-PERFUSION LUNG SCAN. NEGATIVE FOR PULMONARY EMBOLI. Assessment & Plan - Diagnosis (1) Dyspnea Qualifiers: Dyspnea type: shortness of breath Qualified Code(s): R06.02 - Shortness of breath; R06.00 - Dyspnea, unspecified; R06.01 - Orthopnea Is this a current diagnosis for this admission?: Yes (2) Chest pain with moderate risk of acute coronary syndrome Is this a current diagnosis for this admission?: Yes (3) Acute renal injury Is this a current diagnosis for this admission?: Yes (4) Closed left tibial fracture Qualifiers: Encounter type: initial encounter Tibia location: proximal Fracture morphology: unspecified fracture morphology Qualified Code(s): S82.102A - Unspecified fracture of upper end of left tibia, initial encounter for closed fracture Is this a current diagnosis for this admission?: Yes (5) Diabetes mellitus type 2 in obese Is this a current diagnosis for this admission?: Yes (6) HTN (hypertension) Qualifiers: Hypertension type: essential hypertension Qualified Code(s): I10 - Essential (primary) hypertension Is this a current diagnosis for this admission?: Yes (7) CAD (coronary artery disease) Qualifiers: Coronary Disease-Associated Artery/Lesion type: [place] artery [place] vs. transplanted heart: [place] heart Associated angina: without angina Qualified Code(s): I25.10 - Atherosclerotic heart disease of [place] coronary artery without angina pectoris Is this a current diagnosis for this admission?: Yes (8) Schizoaffective disorder, bipolar type Is this a current diagnosis for this admission?: Yes (9) Rhabdomyolysis Qualifiers: Rhabdomyolysis type: non-traumatic Qualified Code(s): M62.82 - Rhabdomyolysis Is this a current diagnosis for this admission?: Yes (10) Anemia associated with diabetes mellitus Is this a current diagnosis for this admission?: Yes Plan: See attending physician orders. - Time Time Spent with patient: 25-34 minutes Medications reviewed and adjusted accordingly: Yes Anticipated discharge: SNF Within: Other - Inpatient Certification Based on my medical assessment, after consideration of the patient's comorbidities, presenting symptoms, or acuity I expect that the services needed warrant INPATIENT care.: Yes I certify that my determination is in accordance with my understanding of Medicare's requirements for reasonable and necessary INPATIENT services [42 CFR 412.3e].: Yes Medical Necessity: Need Close Monitoring Due to Risk of Patient Decompensation, Need For IV Fluids, Need For Continuous Telemetry Monitoring, Risk of Complication if Not Cared For in Hospital Post Hospital Care: D/C or Transfer Summary - Plan Summary Plan Summary: Continue IV fluid support and physical therapy. Possible transfer to for acute rehabilitation.
[2018-01-08] MEDS: NORMAL SALINE 1000 ML 1,000 ML IV PRN ×2 (03:16→12:29)
[2018-01-08] MEDS: LANSOPRAZOLE 30 MG TAB.RAP.DR PO SCH (05:05)
[2018-01-08] MEDS: ASPIRIN 81 MG TABLET, ENT COATED PO SCH (09:11)
[2018-01-08] MEDS: GLIPIZIDE XL 5 MG TAB.ER.24 PO SCH ×2 (09:11→17:41)
[2018-01-08] MEDS: ARIPIPRAZOLE 5 MG TABLET PO SCH (09:12)
[2018-01-08] MEDS: LOSARTAN POTASSIUM 50 MG TABLET PO SCH (09:12)
[2018-01-08] MEDS: PIOGLITAZONE HCL 30 MG TABLET PO SCH (09:12)
[2018-01-08] MEDS: LORATADINE 10 MG TABLET PO SCH (09:13)
[2018-01-08] MEDS: ENOXAPARIN SODIUM INJ 40 MG/0.4 ML DISP.SYRIN SUBCUT SCH (09:16)
[2018-01-08] MEDS ORDERED: HYDROMORPHONE HCL INJ/PF 2 MG/ML AMPULE IV PRN (12:30)
[2018-01-08] MEDS: HYDROMORPHONE HCL 2 MG TABLET PO PRN ×2 (13:18→22:10)
[2018-01-08] MEDS: INSULIN LISPRO 100 UNIT/ML 3 ML VIAL SUBCUT PRN (16:23)
--- NOTE | 2018-01-08 17:08 | PDOC PROGRESS REPORT ---
Subjective Progress Note for:: 01/08/18 Subjective:: Patient seen by the bedside, no new complaints Reason For Visit: LEFT PROXIMAL TIBIA CLOSED FRACTURE S/P FALL, Physical Exam Vital Signs: Temp Pulse Resp BP Pulse Ox 98.1 F 102 H 18 131/70 H 99 01/08/18 12:05 01/08/18 12:05 01/08/18 12:05 01/08/18 12:05 01/08/18 12:05 Intake & Output 01/07/18 01/08/18 01/09/18 06:59 06:59 06:59 Intake Total 3874 3904 566 Output Total 200 900 Balance 3674 3004 566 Weight 157.3 kg 159.2 kg General appearance: PRESENT: no acute distress Eye exam: PRESENT: PERRLA Respiratory exam: PRESENT: clear to auscultation guru Cardiovascular exam: PRESENT: +S1, +S2 GI/Abdominal exam: PRESENT: soft Results Laboratory Results: 01/07/18 10:00 01/07/18 10:00 01/08/18 12:00 Stool Occult Blood NEGATIVE 01/05/18 01/05/18 01/06/18 19:40 19:40 01:26 Creatine Kinase 1561 H 1582 H CK-MB (CK-2) 5.18 H Troponin I < 0.012 01/06/18 01/06/18 01/06/18 01:26 07:21 07:21 Creatine Kinase 1578 H CK-MB (CK-2) 4.62 H 3.79 Troponin I 0.012 < 0.012 Impressions: Foot X-Ray 01/05/18 00:00 IMPRESSION: Fracture follow-up. Tibia/Fibula X-Ray 01/05/18 00:00 IMPRESSION: Fracture follow-up. Chest X-Ray 01/05/18 14:11 IMPRESSION: Borderline cardiomegaly without CHF. Lung Scan-VQ NM 01/05/18 15:11 IMPRESSION: NORMAL VENTILATION-PERFUSION LUNG SCAN. NEGATIVE FOR PULMONARY EMBOLI. Assessment & Plan - Diagnosis (1) Closed left tibial fracture Qualifiers: Encounter type: initial encounter Tibia location: proximal Fracture morphology: unspecified fracture morphology Qualified Code(s): S82.102A - Unspecified fracture of upper end of left tibia, initial encounter for closed fracture Is this a current diagnosis for this admission?: Yes (2) Acute renal injury Is this a current diagnosis for this admission?: Yes (3) Schizoaffective disorder, bipolar type Is this a current diagnosis for this admission?: Yes (4) Rhabdomyolysis Qualifiers: Rhabdomyolysis type: non-traumatic Qualified Code(s): M62.82 - Rhabdomyolysis Is this a current diagnosis for this admission?: Yes
[2018-01-09] MEDS: NORMAL SALINE 1000 ML 1,000 ML IV PRN ×2 (02:28→22:00)
[2018-01-09] MEDS: LANSOPRAZOLE 30 MG TAB.RAP.DR PO SCH (06:24)
--- NOTE | 2018-01-09 06:52 | PDOC PROGRESS REPORT ---
Subjective Progress Note for:: 01/09/18 Reason For Visit: LEFT PROXIMAL TIBIA CLOSED FRACTURE S/P FALL, 57-year-old black female with morbid obesity and a nondisplaced left proximal tibia fracture being treated nonoperatively. Patient complaining of discomfort associated with the knee immobilizer. Physical Exam Vital Signs: Temp Pulse Resp BP Pulse Ox 36.9 C 101 H 16 108/61 98 01/09/18 03:31 01/09/18 03:31 01/09/18 03:31 01/09/18 03:31 01/09/18 03:31 Intake & Output 01/07/18 01/08/18 01/09/18 06:59 06:59 06:59 Intake Total 3874 3904 1666 Output Total 200 900 Balance 3674 3004 1666 Weight 157.3 kg 159.2 kg General appearance: PRESENT: no acute distress, obese Respiratory exam: PRESENT: unlabored Cardiovascular exam: PRESENT: RRR Pulses: PRESENT: +1 pedal pulses bilateral Extremities exam: PRESENT: other - Minimally tender to palpation over the left proximal tibia. Neurological exam: PRESENT: alert, awake, oriented to person, oriented to place , oriented to time, oriented to situation. ABSENT: motor sensory deficit Psychiatric exam: PRESENT: appropriate affect, normal mood. ABSENT: homicidal ideation, suicidal ideation Skin exam: PRESENT: dry, intact, warm. ABSENT: cyanosis, rash Results Laboratory Results: 01/07/18 10:00 01/07/18 10:00 01/08/18 12:00 Stool Occult Blood NEGATIVE 01/05/18 01/05/18 01/06/18 19:40 19:40 01:26 Creatine Kinase 1561 H 1582 H CK-MB (CK-2) 5.18 H Troponin I < 0.012 01/06/18 01/06/18 01/06/18 01:26 07:21 07:21 Creatine Kinase 1578 H CK-MB (CK-2) 4.62 H 3.79 Troponin I 0.012 < 0.012 Impressions: Foot X-Ray 01/05/18 00:00 IMPRESSION: Fracture follow-up. Tibia/Fibula X-Ray 01/05/18 00:00 IMPRESSION: Fracture follow-up. Chest X-Ray 01/05/18 14:11 IMPRESSION: Borderline cardiomegaly without CHF. Lung Scan-VQ NM 01/05/18 15:11 IMPRESSION: NORMAL VENTILATION-PERFUSION LUNG SCAN. NEGATIVE FOR PULMONARY EMBOLI. Status: Imported from PACS Assessment & Plan - Diagnosis (1) Closed left tibial fracture Qualifiers: Encounter type: initial encounter Tibia location: proximal Fracture morphology: unspecified fracture morphology Qualified Code(s): S82.102A - Unspecified fracture of upper end of left tibia, initial encounter for closed fracture Is this a current diagnosis for this admission?: Yes Plan: Patient can leave the knee immobilizer open while in bed and then closed it prior to transfer out of bed. We should still limit the weightbearing on left lower extremity with touchdown weightbearing restriction.
[2018-01-09] MEDS: LORATADINE 10 MG TABLET PO SCH (09:44)
[2018-01-09] MEDS: PIOGLITAZONE HCL 30 MG TABLET PO SCH (09:47)
[2018-01-09] MEDS: FLUTICASONE NASAL SPRAY 50 MCG/SPRY 120 SPRAY/16 GM NASL PRN (09:47)
[2018-01-09] MEDS: GLIPIZIDE XL 5 MG TAB.ER.24 PO SCH ×2 (09:47→18:25)
[2018-01-09] MEDS: ARIPIPRAZOLE 5 MG TABLET PO SCH (09:47)
[2018-01-09] MEDS: LOSARTAN POTASSIUM 50 MG TABLET PO SCH (09:47)
[2018-01-09] MEDS: ASPIRIN 81 MG TABLET, ENT COATED PO SCH (09:47)
[2018-01-09] MEDS: PALIPERIDONE 3 MG TAB.ER.24 PO SCH (09:48)
[2018-01-09] MEDS: ENOXAPARIN SODIUM INJ 40 MG/0.4 ML DISP.SYRIN SUBCUT SCH (09:48)
--- NOTE | 2018-01-09 17:15 | PDOC PROGRESS REPORT ---
Subjective Progress Note for:: 01/09/18 Subjective:: Patient seen by the bedside, no new complaints Reason For Visit: LEFT PROXIMAL TIBIA CLOSED FRACTURE S/P FALL, Physical Exam Vital Signs: Temp Pulse Resp BP Pulse Ox 98.4 F 92 16 108/61 98 01/09/18 03:31 01/09/18 07:00 01/09/18 03:31 01/09/18 03:31 01/09/18 03:31 Intake & Output 01/08/18 01/09/18 01/10/18 06:59 06:59 06:59 Intake Total 3904 3610 Output Total 900 1200 Balance 3004 2410 Weight 159.2 kg 160 kg General appearance: PRESENT: no acute distress Eye exam: PRESENT: PERRLA Respiratory exam: PRESENT: clear to auscultation guru Cardiovascular exam: PRESENT: +S1, +S2 Neurological exam: PRESENT: alert Results Laboratory Results: 01/07/18 10:00 01/07/18 10:00 01/05/18 01/05/18 01/06/18 19:40 19:40 01:26 Creatine Kinase 1561 H 1582 H CK-MB (CK-2) 5.18 H Troponin I < 0.012 01/06/18 01/06/18 01/06/18 01:26 07:21 07:21 Creatine Kinase 1578 H CK-MB (CK-2) 4.62 H 3.79 Troponin I 0.012 < 0.012 Impressions: Foot X-Ray 01/05/18 00:00 IMPRESSION: Fracture follow-up. Tibia/Fibula X-Ray 01/05/18 00:00 IMPRESSION: Fracture follow-up. Chest X-Ray 01/05/18 14:11 IMPRESSION: Borderline cardiomegaly without CHF. Lung Scan-VQ NM 01/05/18 15:11 IMPRESSION: NORMAL VENTILATION-PERFUSION LUNG SCAN. NEGATIVE FOR PULMONARY EMBOLI. Assessment & Plan - Diagnosis (1) Closed left tibial fracture Qualifiers: Encounter type: initial encounter Tibia location: proximal Fracture morphology: unspecified fracture morphology Qualified Code(s): S82.102A - Unspecified fracture of upper end of left tibia, initial encounter for closed fracture Is this a current diagnosis for this admission?: Yes (2) Acute renal injury Is this a current diagnosis for this admission?: Yes (3) Schizoaffective disorder, bipolar type Is this a current diagnosis for this admission?: Yes (4) Rhabdomyolysis Qualifiers: Rhabdomyolysis type: non-traumatic Qualified Code(s): M62.82 - Rhabdomyolysis Is this a current diagnosis for this admission?: Yes
[2018-01-10] MEDS: LANSOPRAZOLE 30 MG TAB.RAP.DR PO SCH (07:27)
[2018-01-10] MEDS: NORMAL SALINE 1000 ML 1,000 ML IV PRN ×2 (08:59→22:31)
[2018-01-10] MEDS: LORATADINE 10 MG TABLET PO SCH (10:24)
[2018-01-10] MEDS: GLIPIZIDE XL 5 MG TAB.ER.24 PO SCH ×2 (10:24→17:04)
[2018-01-10] MEDS: ASPIRIN 81 MG TABLET, ENT COATED PO SCH (10:25)
[2018-01-10] MEDS: LOSARTAN POTASSIUM 50 MG TABLET PO SCH (10:25)
[2018-01-10] MEDS: ARIPIPRAZOLE 5 MG TABLET PO SCH (10:27)
[2018-01-10] MEDS: PIOGLITAZONE HCL 30 MG TABLET PO SCH (10:28)
[2018-01-10] MEDS: ENOXAPARIN SODIUM INJ 40 MG/0.4 ML DISP.SYRIN SUBCUT SCH (10:32)
[2018-01-10] MEDS: PALIPERIDONE 3 MG TAB.ER.24 PO SCH (12:21)
[2018-01-10] MEDS: HYDROMORPHONE HCL 2 MG TABLET PO PRN (12:30)
--- NOTE | 2018-01-10 17:42 | PDOC PROGRESS REPORT ---
Subjective Progress Note for:: 01/10/18 Subjective:: No chest pain or difficulty with breathing. No fever or chills. No nausea, vomiting, or abdominal pain. Participating in physical therapy session with one person assist upon transfer. Reason For Visit: LEFT PROXIMAL TIBIA CLOSED FRACTURE S/P FALL, Physical Exam Vital Signs: Temp Pulse Resp BP Pulse Ox 98.2 F 100 20 130/67 H 100 01/10/18 07:33 01/10/18 15:30 01/10/18 07:33 01/10/18 07:33 01/10/18 07:33 Intake & Output 01/09/18 01/10/18 01/11/18 06:59 06:59 06:59 Intake Total 3610 3902 Output Total 1200 3500 Balance 2410 402 Weight 160 kg 163.9 kg Physical Exam: General appearance: PRESENT: no acute distress, morbidly obese Head exam: PRESENT: atraumatic, normocephalic Mouth exam: PRESENT: moist Respiratory exam: PRESENT: clear to auscultation guru, decreased breath sounds - at lung bases, probably due to body habitus Cardiovascular exam: PRESENT: RRR. ABSENT: diastolic murmur, rubs, systolic murmur GI/Abdominal exam: PRESENT: normal bowel sounds, soft Extremities exam: PRESENT: tenderness - left leg due to recent fracture. ABSENT : pedal edema Musculoskeletal exam: PRESENT: tenderness - left leg due to recent fracture, external immobilizer in use Neurological exam: PRESENT: alert, awake, oriented to person, oriented to place , oriented to time, oriented to situation, CN II-XII grossly intact. ABSENT: motor sensory deficit Skin exam: PRESENT: dry, warm, blistering lesions on buttock with allevyn dressing Results Laboratory Results: 01/07/18 10:00 01/07/18 10:00 01/05/18 01/05/18 01/06/18 19:40 19:40 01:26 Creatine Kinase 1561 H 1582 H CK-MB (CK-2) 5.18 H Troponin I < 0.012 01/06/18 01/06/18 01/06/18 01:26 07:21 07:21 Creatine Kinase 1578 H CK-MB (CK-2) 4.62 H 3.79 Troponin I 0.012 < 0.012 Impressions: Foot X-Ray 01/05/18 00:00 IMPRESSION: Fracture follow-up. Tibia/Fibula X-Ray 01/05/18 00:00 IMPRESSION: Fracture follow-up. Chest X-Ray 01/05/18 14:11 IMPRESSION: Borderline cardiomegaly without CHF. Lung Scan-VQ NM 01/05/18 15:11 IMPRESSION: NORMAL VENTILATION-PERFUSION LUNG SCAN. NEGATIVE FOR PULMONARY EMBOLI. Assessment & Plan - Diagnosis (1) Dyspnea Qualifiers: Dyspnea type: shortness of breath Qualified Code(s): R06.02 - Shortness of breath; R06.00 - Dyspnea, unspecified; R06.01 - Orthopnea Is this a current diagnosis for this admission?: Yes (2) Chest pain with moderate risk of acute coronary syndrome Is this a current diagnosis for this admission?: Yes (3) Acute renal injury Is this a current diagnosis for this admission?: Yes (4) Closed left tibial fracture Qualifiers: Encounter type: initial encounter Tibia location: proximal Fracture morphology: unspecified fracture morphology Qualified Code(s): S82.102A - Unspecified fracture of upper end of left tibia, initial encounter for closed fracture Is this a current diagnosis for this admission?: Yes (5) Diabetes mellitus type 2 in obese Is this a current diagnosis for this admission?: Yes (6) HTN (hypertension) Qualifiers: Hypertension type: essential hypertension Qualified Code(s): I10 - Essential (primary) hypertension Is this a current diagnosis for this admission?: Yes (7) CAD (coronary artery disease) Qualifiers: Coronary Disease-Associated Artery/Lesion type: [place] artery [place] vs. transplanted heart: [place] heart Associated angina: without angina Qualified Code(s): I25.10 - Atherosclerotic heart disease of [place] coronary artery without angina pectoris Is this a current diagnosis for this admission?: Yes (8) Schizoaffective disorder, bipolar type Is this a current diagnosis for this admission?: Yes (9) Rhabdomyolysis Qualifiers: Rhabdomyolysis type: non-traumatic Qualified Code(s): M62.82 - Rhabdomyolysis Is this a current diagnosis for this admission?: Yes (10) Anemia associated with diabetes mellitus Is this a current diagnosis for this admission?: Yes - Time Time Spent with patient: 25-34 minutes Medications reviewed and adjusted accordingly: Yes Anticipated discharge: SNF - for short term rehabilitation. - Inpatient Certification Based on my medical assessment, after consideration of the patient's comorbidities, presenting symptoms, or acuity I expect that the services needed warrant INPATIENT care.: Yes I certify that my determination is in accordance with my understanding of Medicare's requirements for reasonable and necessary INPATIENT services [42 CFR 412.3e].: Yes Medical Necessity: Need Close Monitoring Due to Risk of Patient Decompensation, Need For Continuous Telemetry Monitoring, Risk of Complication if Not Cared For in Hospital Post Hospital Care: D/C or Transfer Summary - Plan Summary Plan Summary: Start on iron supplementation therapy. Continue all other current intervention. Obtain CBc , BMP in am.
[2018-01-10 18:34] LABS: ABSOLUTE EOSINOPHILS # (AUTO) 0.2 10^3/uL (0.0-0.6); ABSOLUTE LYMPHOCYTES (AUTO) 1.5 10^3/uL (0.5-4.7); ABSOLUTE MONOCYTES (AUTO) 0.9 10^3/uL (0.1-1.4); ABSOLUTE NEUT (AUTO) 5.6 10^3/uL (1.7-8.2); BASOPHILS % (AUTO) 0.3 % (0-2); EOSINOPHILS % (AUTO) 2.1 % (0-6); HEMATOCRIT 24.9 % (36.0-47.0); LYMPHOCYTES % (AUTO) 17.9 % (13-45); MEAN CORPUSCULAR HEMOGLOBIN 26.5 pg (27.0-33.4); MEAN CORPUSCULAR HGB CONC 32.1 g/dL (32.0-36.0); MEAN CORPUSCULAR VOLUME 82 fl (80-97); MONOCYTES % (AUTO) 11.6 % (3-13); PLATELET COUNT 306 10^3/uL (150-450); RED BLOOD COUNT 3.01 10^6/uL (3.72-5.28); RED CELL DISTRIBUTION WIDTH 14.5 % (11.5-14.0); SEGMENTED NEUTROPHILS % (AUTO) 68.1 % (42-78); TOTAL CELLS COUNTED % (AUTO) 100 %; WHITE BLOOD COUNT 8.2 10^3/uL (4.0-10.5)
[2018-01-11] MEDS: HYDROMORPHONE HCL 2 MG TABLET PO PRN (03:42)
[2018-01-11 05:15] LABS: RETICULOCYTE COUNT (AUTO) 1.38 % (0.66-2.85)
[2018-01-11] MEDS: LANSOPRAZOLE 30 MG TAB.RAP.DR PO SCH (05:19)
[2018-01-11 05:30] LABS: ANION GAP 12 (5-19); BLOOD UREA NITROGEN 18 mg/dL (7-20); CALCIUM 9.2 mg/dL (8.4-10.2); CARBON DIOXIDE 26 mmol/L (22-30); CHLORIDE 108 mmol/L (98-107); GLUCOSE 103 mg/dL (75-110); IRON(TIBC) 43.2 ug/dL (37-170); POTASSIUM 4.2 mmol/L (3.6-5.0); SODIUM 145.5 mmol/L (137-145)
[2018-01-11 06:37] LABS: FOLATE 6.78 ng/mL (>2.76)
--- NOTE | 2018-01-11 07:54 | PDOC PROGRESS REPORT ---
Subjective Progress Note for:: 01/11/18 Subjective:: No chest pain or difficulty with breathing. No fever or chills. No nausea, vomiting, or abdominal pain. She denied any tarry stool or excessive menstrual bleeding. Patient is awaiting [facility] bed assignment. Reason For Visit: LEFT PROXIMAL TIBIA CLOSED FRACTURE S/P FALL, Physical Exam Vital Signs: Temp Pulse Resp BP Pulse Ox 98.3 F 110 H 20 97/51 L 96 01/10/18 15:22 01/11/18 02:00 01/10/18 15:22 01/10/18 15:22 01/10/18 15:22 Intake & Output 01/10/18 01/11/18 01/12/18 06:59 06:59 06:59 Intake Total 3902 3020 Output Total 3500 1810 Balance 402 1210 Weight 163.9 kg 164.1 kg Physical Exam: General appearance: PRESENT: no acute distress, morbidly obese Head exam: PRESENT: atraumatic, normocephalic Mouth exam: PRESENT: moist Respiratory exam: PRESENT: clear to auscultation guru, decreased breath sounds - at lung bases, probably due to body habitus Cardiovascular exam: PRESENT: RRR. ABSENT: diastolic murmur, rubs, systolic murmur GI/Abdominal exam: PRESENT: normal bowel sounds, soft Extremities exam: PRESENT: tenderness - left leg due to recent fracture. ABSENT : pedal edema Musculoskeletal exam: PRESENT: tenderness - left leg due to recent fracture, external immobilizer in use Neurological exam: PRESENT: alert, awake, oriented to person, oriented to place , oriented to time, oriented to situation, CN II-XII grossly intact. ABSENT: motor sensory deficit Skin exam: PRESENT: dry, warm, blistering lesions on buttock with allevyn dressing Results Laboratory Results: 01/10/18 18:10 01/11/18 04:14 01/10/18 01/11/18 01/11/18 18:10 04:14 04:14 WBC 8.2 RBC 3.01 L Hgb 8.0 L Hct 24.9 L MCV 82 MCH 26.5 L MCHC 32.1 RDW 14.5 H Plt Count 306 Seg Neutrophils % 68.1 Lymphocytes % 17.9 Monocytes % 11.6 Eosinophils % 2.1 Basophils % 0.3 Absolute Neutrophils 5.6 Absolute Lymphocytes 1.5 Absolute Monocytes 0.9 Absolute Eosinophils 0.2 Absolute Basophils 0.0 Retic Count (auto) 1.38 Absolute Retic 0.040 Sodium 145.5 H Potassium 4.2 Chloride 108 H Carbon Dioxide 26 Anion Gap 12 BUN 18 Creatinine 1.04 Est GFR ( Amer) > 60 Est GFR (Non-Af Amer) 55 L Glucose 103 Calcium 9.2 Iron 43.2 TIBC 284 % Saturation 15 Ferritin 120.00 Vitamin B12 476.0 Folate 6.78 Blood Type Antibody Screen 01/11/18 06:13 WBC RBC Hgb Hct MCV MCH MCHC RDW Plt Count Seg Neutrophils % Lymphocytes % Monocytes % Eosinophils % Basophils % Absolute Neutrophils Absolute Lymphocytes Absolute Monocytes Absolute Eosinophils Absolute Basophils Retic Count (auto) Absolute Retic Sodium Potassium Chloride Carbon Dioxide Anion Gap BUN Creatinine Est GFR ( Amer) Est GFR (Non-Af Amer) Glucose Calcium Iron TIBC % Saturation Ferritin Vitamin B12 Folate Blood Type O POSITIVE Antibody Screen NEGATIVE 01/05/18 01/05/18 01/06/18 19:40 19:40 01:26 Creatine Kinase 1561 H 1582 H CK-MB (CK-2) 5.18 H Troponin I < 0.012 01/06/18 01/06/18 01/06/18 01:26 07:21 07:21 Creatine Kinase 1578 H CK-MB (CK-2) 4.62 H 3.79 Troponin I 0.012 < 0.012 Impressions: Foot X-Ray 01/05/18 00:00 IMPRESSION: Fracture follow-up. Tibia/Fibula X-Ray 01/05/18 00:00 IMPRESSION: Fracture follow-up. Chest X-Ray 01/05/18 14:11 IMPRESSION: Borderline cardiomegaly without CHF. Lung Scan-VQ NM 01/05/18 15:11 IMPRESSION: NORMAL VENTILATION-PERFUSION LUNG SCAN. NEGATIVE FOR PULMONARY EMBOLI. Assessment & Plan - Diagnosis (1) Dyspnea Qualifiers: Dyspnea type: shortness of breath Qualified Code(s): R06.02 - Shortness of breath; R06.00 - Dyspnea, unspecified; R06.01 - Orthopnea Is this a current diagnosis for this admission?: Yes (2) Chest pain with moderate risk of acute coronary syndrome Is this a current diagnosis for this admission?: Yes (3) Acute renal injury Is this a current diagnosis for this admission?: Yes (4) Closed left tibial fracture Qualifiers: Encounter type: initial encounter Tib[place] location: proximal Fracture morphology: unspecified fracture morphology Qualified Code(s): S82.102A - Unspecified fracture of upper end of left tibia, initial encounter for closed fracture Is this a current diagnosis for this admission?: Yes (5) Diabetes mellitus type 2 in obese Is this a current diagnosis for this admission?: Yes (6) HTN (hypertension) Qualifiers: Hypertension type: essential hypertension Qualified Code(s): I10 - Essential (primary) hypertension Is this a current diagnosis for this admission?: Yes (7) CAD (coronary artery disease) Qualifiers: Coronary Disease-Associated Artery/Lesion type: [place] artery [place] vs. transplanted heart: [place] heart Associated angina: without angina Qualified Code(s): I25.10 - Atherosclerotic heart disease of [place] coronary artery without angina pectoris Is this a current diagnosis for this admission?: Yes (8) Schizoaffective disorder, bipolar type Is this a current diagnosis for this admission?: Yes (9) Rhabdomyolysis Qualifiers: Rhabdomyolysis type: non-traumatic Qualified Code(s): M62.82 - Rhabdomyolysis Is this a current diagnosis for this admission?: Yes (10) Anemia associated with diabetes mellitus Is this a current diagnosis for this admission?: Yes - Time Time Spent with patient: 25-34 minutes Medications reviewed and adjusted accordingly: Yes Anticipated discharge: SNF Within: Other - Inpatient Certification Based on my medical assessment, after consideration of the patient's comorbidities, presenting symptoms, or acuity I expect that the services needed warrant INPATIENT care.: Yes I certify that my determination is in accordance with my understanding of Medicare's requirements for reasonable and necessary INPATIENT services [42 CFR 412.3e].: Yes Medical Necessity: Need Close Monitoring Due to Risk of Patient Decompensation, Need For IV Fluids, Need For Continuous Telemetry Monitoring, Need for Pain Control, Risk of Complication if Not Cared For in Hospital Post Hospital Care: D/C or Transfer Summary - Plan Summary Plan Summary: See attending physician orders. She will receive 2 units PRBC. Evaluate erythropoesis process in view of her anemia workup findings so far.
[2018-01-11] MEDS: LORATADINE 10 MG TABLET PO SCH (09:42)
[2018-01-11] MEDS: LOSARTAN POTASSIUM 50 MG TABLET PO SCH (09:42)
[2018-01-11] MEDS: ASPIRIN 81 MG TABLET, ENT COATED PO SCH (09:42)
[2018-01-11] MEDS: GLIPIZIDE XL 5 MG TAB.ER.24 PO SCH ×2 (09:42→19:16)
[2018-01-11] MEDS: PIOGLITAZONE HCL 30 MG TABLET PO SCH (09:43)
[2018-01-11] MEDS: ENOXAPARIN SODIUM INJ 40 MG/0.4 ML DISP.SYRIN SUBCUT SCH (09:43)
[2018-01-11] MEDS: ARIPIPRAZOLE 5 MG TABLET PO SCH (09:43)
[2018-01-11] MEDS: PALIPERIDONE 3 MG TAB.ER.24 PO SCH (10:00)
[2018-01-11] MEDS: NORMAL SALINE 1000 ML 1,000 ML IV PRN (20:14)
[2018-01-11 22:04] LABS: HEMATOCRIT 30.1 % (36.0-47.0); HEMOGLOBIN 9.7 g/dL (12.0-15.5); MEAN CORPUSCULAR HEMOGLOBIN 27.2 pg (27.0-33.4); MEAN CORPUSCULAR HGB CONC 32.4 g/dL (32.0-36.0); MEAN CORPUSCULAR VOLUME 84 fl (80-97); PLATELET COUNT 334 10^3/uL (150-450); RED BLOOD COUNT 3.58 10^6/uL (3.72-5.28); RED CELL DISTRIBUTION WIDTH 14.8 % (11.5-14.0); WHITE BLOOD COUNT 8.7 10^3/uL (4.0-10.5)
[2018-01-12] MEDS: LANSOPRAZOLE 30 MG TAB.RAP.DR PO SCH (05:50)
[2018-01-12] MEDS: NORMAL SALINE 1000 ML 1,000 ML IV PRN ×2 (06:43→21:42)
[2018-01-12] MEDS: LOSARTAN POTASSIUM 50 MG TABLET PO SCH (09:37)
[2018-01-12] MEDS: ARIPIPRAZOLE 5 MG TABLET PO SCH (09:37)
[2018-01-12] MEDS: ENOXAPARIN SODIUM INJ 40 MG/0.4 ML DISP.SYRIN SUBCUT SCH (09:37)
[2018-01-12] MEDS: ASPIRIN 81 MG TABLET, ENT COATED PO SCH (09:37)
[2018-01-12] MEDS: PALIPERIDONE 3 MG TAB.ER.24 PO SCH (09:37)
[2018-01-12] MEDS: GLIPIZIDE XL 5 MG TAB.ER.24 PO SCH ×2 (09:37→19:07)
[2018-01-12] MEDS: PIOGLITAZONE HCL 30 MG TABLET PO SCH (09:37)
[2018-01-12] MEDS: LORATADINE 10 MG TABLET PO SCH (09:37)
--- NOTE | 2018-01-12 17:24 | CONSULTATION REPORT E ---
Consultation Report NAME: VICK NAVARRO : 1960 AGE: 57Y DATE: 01/12/2018 ROOM: 536 A TO: CHESTER ORR M.D. FROM: ANNIE REDMAN M.D. Requesting Physician REASON FOR REFERRAL: Anemia. HISTORY OF PRESENT ILLNESS: The patient was admitted on 01/05/2018, she had presented to the emergency room with difficulty breathing and she had a prior history of right proximal tibia fracture. She was found to be anemic when she was admitted, hemoglobin was 8. PAST MEDICAL HISTORY: She has a past medical history of *------*, coronary artery disease, diabetes type 2, osteoarthritis, bipolar disorder, schizophrenia, and morbid obesity. She states that she has been anemic for a long time. She has never been transfused prior to this hospitalization. PAST SURGICAL HISTORY: She has a past surgical history of hysterectomy. SOCIAL HISTORY: She does not smoke cigarettes. MEDICATIONS: Include tramadol, losartan/hydrochlorothiazide, glipizide, furosemide, Flonase, Abilify, Actos, Invega. ALLERGIES: CODEINE AND NAPROXEN. EXAMINATION: She is a middle-aged woman. She is not acutely ill-looking. She was sitting by her bedside. LABORATORY DATA: White count from today 8.7, hemoglobin 9.7, platelet count 334. Ferritin is 120, TIBC 284, erythropoietin level was 37, B12 was 475, folate 6.7. IMPRESSION AND PLAN: The patient is a 57-year-old woman with anemia. She will benefit from a bone marrow biopsy and aspiration will ascertain the reason for the anemia. She has normal serum ferritin, B12, and folate. I will request serum protein electrophoresis and serum free light chains to rule out multiple myeloma. Due to her size I will suggest a CT guided bone marrow aspiration and this probably should be done before she is discharged to rehab. My plan to see her as an outpatient following the discharge from the hospital in about 2 weeks. I thank you for this consultation and allowing me to a part of her care. DICTATING PHYSICIAN: CHESTER ORR M.D. [id number] PHY#: [id number] ID: [id number] JOB#: [id number] ACCT: [id number] cc:CHESTER ORR M.D. >
--- NOTE | 2018-01-12 19:07 | PDOC PROGRESS REPORT ---
Subjective Progress Note for:: 01/12/18 Subjective:: Patient was transfused 2 units PRBC with post transfusion hemoglobin over 9 gm/ dL presently. No fever or chills. No chest pain or difficulty with breathing. No nausea, vomiting, or abdominal pain. We are awaiting SNF bed assignment. Reason For Visit: LEFT PROXIMAL TIBIA CLOSED FRACTURE S/P FALL, Physical Exam Vital Signs: Temp Pulse Resp BP Pulse Ox 98.1 F 89 16 121/55 L 98 01/11/18 19:30 01/12/18 02:00 01/11/18 19:30 01/11/18 19:30 01/11/18 19:30 Intake & Output 01/11/18 01/12/18 01/13/18 06:59 06:59 06:59 Intake Total 3020 5635 Output Total 1810 1250 Balance 1210 4385 Weight 164.1 kg 164.2 kg Physical Exam: General appearance: PRESENT: no acute distress, morbidly obese Head exam: PRESENT: atraumatic, normocephalic Mouth exam: PRESENT: moist Respiratory exam: PRESENT: clear to auscultation guru, decreased breath sounds - at lung bases, probably due to body habitus Cardiovascular exam: PRESENT: RRR. ABSENT: diastolic murmur, rubs, systolic murmur GI/Abdominal exam: PRESENT: normal bowel sounds, soft Vascular: Absent: Pallor. Extremities exam: PRESENT: tenderness - left leg due to recent fracture. ABSENT : pedal edema Musculoskeletal exam: PRESENT: tenderness - left leg due to recent fracture, external immobilizer in use Neurological exam: PRESENT: alert, awake, oriented to person, oriented to place , oriented to time, oriented to situation, CN II-XII grossly intact. ABSENT: motor sensory deficit Skin exam: PRESENT: dry, warm, blistering lesions on buttock with allevyn dressing Results Laboratory Results: 01/11/18 21:30 01/11/18 04:14 01/11/18 01/11/18 01/11/18 06:13 08:30 08:30 WBC RBC Hgb Hct MCV MCH MCHC RDW Plt Count Erythropoietin 37.0 H C-Reactive Protein 18.1 H Blood Type O POSITIVE Antibody Screen NEGATIVE 01/11/18 21:30 WBC 8.7 RBC 3.58 L Hgb 9.7 L Hct 30.1 L MCV 84 MCH 27.2 MCHC 32.4 RDW 14.8 H Plt Count 334 Erythropoietin C-Reactive Protein Blood Type Antibody Screen 01/05/18 01/05/18 01/06/18 19:40 19:40 01:26 Creatine Kinase 1561 H 1582 H CK-MB (CK-2) 5.18 H Troponin I < 0.012 01/06/18 01/06/18 01/06/18 01:26 07:21 07:21 Creatine Kinase 1578 H CK-MB (CK-2) 4.62 H 3.79 Troponin I 0.012 < 0.012 Impressions: Foot X-Ray 01/05/18 00:00 IMPRESSION: Fracture follow-up. Tibia/Fibula X-Ray 01/05/18 00:00 IMPRESSION: Fracture follow-up. Chest X-Ray 01/05/18 14:11 IMPRESSION: Borderline cardiomegaly without CHF. Lung Scan-VQ NM 01/05/18 15:11 IMPRESSION: NORMAL VENTILATION-PERFUSION LUNG SCAN. NEGATIVE FOR PULMONARY EMBOLI. Assessment & Plan - Diagnosis (1) Dyspnea Qualifiers: Dyspnea type: shortness of breath Qualified Code(s): R06.02 - Shortness of breath; R06.00 - Dyspnea, unspecified; R06.01 - Orthopnea Is this a current diagnosis for this admission?: Yes (2) Chest pain with moderate risk of acute coronary syndrome Is this a current diagnosis for this admission?: Yes (3) Acute renal injury Is this a current diagnosis for this admission?: Yes (4) Closed left tibial fracture Qualifiers: Encounter type: initial encounter Tibia location: proximal Fracture morphology: unspecified fracture morphology Qualified Code(s): S82.102A - Unspecified fracture of upper end of left tibia, initial encounter for closed fracture Is this a current diagnosis for this admission?: Yes (5) Diabetes mellitus type 2 in obese Is this a current diagnosis for this admission?: Yes (6) HTN (hypertension) Qualifiers: Hypertension type: essential hypertension Qualified Code(s): I10 - Essential (primary) hypertension Is this a current diagnosis for this admission?: Yes (7) CAD (coronary artery disease) Qualifiers: Coronary Disease-Associated Artery/Lesion type: [place] artery [place] vs. transplanted heart: [place] heart Associated angina: without angina Qualified Code(s): I25.10 - Atherosclerotic heart disease of [place] coronary artery without angina pectoris Is this a current diagnosis for this admission?: Yes (8) Schizoaffective disorder, bipolar type Is this a current diagnosis for this admission?: Yes (9) Rhabdomyolysis Qualifiers: Rhabdomyolysis type: non-traumatic Qualified Code(s): M62.82 - Rhabdomyolysis Is this a current diagnosis for this admission?: Yes (10) Anemia associated with diabetes mellitus Is this a current diagnosis for this admission?: Yes - Time Time Spent with patient: 25-34 minutes Medications reviewed and adjusted accordingly: Yes Anticipated discharge: SNF - for short term rehabilitation - Inpatient Certification Based on my medical assessment, after consideration of the patient's comorbidities, presenting symptoms, or acuity I expect that the services needed warrant INPATIENT care.: Yes I certify that my determination is in accordance with my understanding of Medicare's requirements for reasonable and necessary INPATIENT services [42 CFR 412.3e].: Yes Medical Necessity: Need Close Monitoring Due to Risk of Patient Decompensation, Need For IV Fluids, Need For Continuous Telemetry Monitoring, Risk of Complication if Not Cared For in Hospital Post Hospital Care: D/C or Transfer Summary - Plan Summary Plan Summary: Continue current management. Review of her anemia workup so far suggested acute inflammatory process with marrow suppression. No clear indication presently but suspect medication contribution. Request hematology consult with Dr. Solis in view of her anemia and workup indication so far.
[2018-01-12 20:55] LABS: ABSOLUTE EOSINOPHILS # (AUTO) 0.1 10^3/uL (0.0-0.6); ABSOLUTE LYMPHOCYTES (AUTO) 1.2 10^3/uL (0.5-4.7); ABSOLUTE MONOCYTES (AUTO) 0.8 10^3/uL (0.1-1.4); ABSOLUTE NEUT (AUTO) 5.6 10^3/uL (1.7-8.2); BASOPHILS % (AUTO) 0.5 % (0-2); EOSINOPHILS % (AUTO) 1.4 % (0-6); HEMATOCRIT 29.2 % (36.0-47.0); HEMOGLOBIN 9.6 g/dL (12.0-15.5); LYMPHOCYTES % (AUTO) 15.9 % (13-45); MEAN CORPUSCULAR HEMOGLOBIN 27.5 pg (27.0-33.4); MEAN CORPUSCULAR VOLUME 83 fl (80-97); MONOCYTES % (AUTO) 10.2 % (3-13); PLATELET COUNT 339 10^3/uL (150-450); RED CELL DISTRIBUTION WIDTH 14.6 % (11.5-14.0); TOTAL CELLS COUNTED % (AUTO) 100 %; WHITE BLOOD COUNT 7.8 10^3/uL (4.0-10.5)
[2018-01-13 05:21] LABS: PROTHROMBIN TIME 14.7 SEC (11.4-15.4)
[2018-01-13 05:22] LABS: PARTIAL THROMBOPLASTIN TIME 33.9 SEC (23.5-35.8)
[2018-01-13] MEDS: LANSOPRAZOLE 30 MG TAB.RAP.DR PO SCH (06:16)
--- NOTE | 2018-01-13 08:25 | PDOC PROGRESS REPORT ---
Subjective Progress Note for:: 01/13/18 Subjective:: Out of bed on commode at the time of my visit this morning. Awaiting possible bone marrow aspiration ad biopsy later today. No chest pain or difficulty with breathing. No nausea, vomiting or abdominal pain. Reason For Visit: LEFT PROXIMAL TIBIA CLOSED FRACTURE S/P FALL, Physical Exam Vital Signs: Temp Pulse Resp BP Pulse Ox 98.9 F 93 12 133/74 H 98 01/12/18 07:34 01/13/18 07:00 01/12/18 07:34 01/12/18 07:34 01/12/18 07:34 Intake & Output 01/12/18 01/13/18 01/14/18 06:59 06:59 06:59 Intake Total 5635 3363 Output Total 1250 1216 Balance 4385 2147 Weight 164.2 kg 163.1 kg Physical Exam: General appearance: PRESENT: no acute distress, morbidly obese Head exam: PRESENT: atraumatic, normocephalic Mouth exam: PRESENT: moist Respiratory exam: PRESENT: clear to auscultation guru, decreased breath sounds - at lung bases, probably due to body habitus Cardiovascular exam: PRESENT: RRR. ABSENT: diastolic murmur, rubs, systolic murmur GI/Abdominal exam: PRESENT: normal bowel sounds, soft Vascular: Absent: Pallor. Extremities exam: PRESENT: tenderness - left leg due to recent fracture. ABSENT : pedal edema Musculoskeletal exam: PRESENT: tenderness - left leg due to recent fracture, external immobilizer in use Neurological exam: PRESENT: alert, awake, oriented to person, oriented to place , oriented to time, oriented to situation, CN II-XII grossly intact. ABSENT: motor sensory deficit Skin exam: PRESENT: dry, warm, blistering lesions on buttock with allevyn dressing Results Laboratory Results: 01/12/18 20:45 01/11/18 04:14 01/12/18 20:45 WBC 7.8 RBC 3.50 L Hgb 9.6 L Hct 29.2 L MCV 83 MCH 27.5 MCHC 33.0 RDW 14.6 H Plt Count 339 Seg Neutrophils % 72.0 Lymphocytes % 15.9 Monocytes % 10.2 Eosinophils % 1.4 Basophils % 0.5 Absolute Neutrophils 5.6 Absolute Lymphocytes 1.2 Absolute Monocytes 0.8 Absolute Eosinophils 0.1 Absolute Basophils 0.0 01/05/18 01/05/18 01/06/18 19:40 19:40 01:26 Creatine Kinase 1561 H 1582 H CK-MB (CK-2) 5.18 H Troponin I < 0.012 01/06/18 01/06/18 01/06/18 01:26 07:21 07:21 Creatine Kinase 1578 H CK-MB (CK-2) 4.62 H 3.79 Troponin I 0.012 < 0.012 Impressions: Foot X-Ray 01/05/18 00:00 IMPRESSION: Fracture follow-up. Tibia/Fibula X-Ray 01/05/18 00:00 IMPRESSION: Fracture follow-up. Chest X-Ray 01/05/18 14:11 IMPRESSION: Borderline cardiomegaly without CHF. Lung Scan-VQ NM 01/05/18 15:11 IMPRESSION: NORMAL VENTILATION-PERFUSION LUNG SCAN. NEGATIVE FOR PULMONARY EMBOLI. Assessment & Plan - Diagnosis (1) Dyspnea Qualifiers: Dyspnea type: shortness of breath Qualified Code(s): R06.02 - Shortness of breath; R06.00 - Dyspnea, unspecified; R06.01 - Orthopnea Is this a current diagnosis for this admission?: Yes (2) Chest pain with moderate risk of acute coronary syndrome Is this a current diagnosis for this admission?: Yes (3) Acute renal injury Is this a current diagnosis for this admission?: Yes (4) Closed left tibial fracture Qualifiers: Encounter type: initial encounter Tibia location: proximal Fracture morphology: unspecified fracture morphology Qualified Code(s): S82.102A - Unspecified fracture of upper end of left tibia, initial encounter for closed fracture Is this a current diagnosis for this admission?: Yes (5) Diabetes mellitus type 2 in obese Is this a current diagnosis for this admission?: Yes (6) HTN (hypertension) Qualifiers: Hypertension type: essential hypertension Qualified Code(s): I10 - Essential (primary) hypertension Is this a current diagnosis for this admission?: Yes (7) CAD (coronary artery disease) Qualifiers: Coronary Disease-Associated Artery/Lesion type: [place] artery [place] vs. transplanted heart: [place] heart Associated angina: without angina Qualified Code(s): I25.10 - Atherosclerotic heart disease of [place] coronary artery without angina pectoris Is this a current diagnosis for this admission?: Yes (8) Schizoaffective disorder, bipolar type Is this a current diagnosis for this admission?: Yes (9) Rhabdomyolysis Qualifiers: Rhabdomyolysis type: non-traumatic Qualified Code(s): M62.82 - Rhabdomyolysis Is this a current diagnosis for this admission?: Yes (10) Anemia associated with diabetes mellitus Is this a current diagnosis for this admission?: Yes - Time Time Spent with patient: 25-34 minutes Medications reviewed and adjusted accordingly: Yes Anticipated discharge: SNF Within: within 48 hours - Inpatient Certification Based on my medical assessment, after consideration of the patient's comorbidities, presenting symptoms, or acuity I expect that the services needed warrant INPATIENT care.: Yes I certify that my determination is in accordance with my understanding of Medicare's requirements for reasonable and necessary INPATIENT services [42 CFR 412.3e].: Yes Medical Necessity: Need Close Monitoring Due to Risk of Patient Decompensation, Need For IV Fluids, Need For Continuous Telemetry Monitoring, Risk of Complication if Not Cared For in Hospital Post Hospital Care: D/C Paper Folding Machine Operator Documentation - Plan Summary Plan Summary: See attending physician orders. Follow up on aspiration biopsy findings.
[2018-01-13] MEDS: PALIPERIDONE 3 MG TAB.ER.24 PO SCH (10:30)
[2018-01-13] MEDS: FLUTICASONE NASAL SPRAY 50 MCG/SPRY 120 SPRAY/16 GM NASL PRN (10:30)
[2018-01-13] MEDS: ASPIRIN 81 MG TABLET, ENT COATED PO SCH (10:30)
[2018-01-13] MEDS: LOSARTAN POTASSIUM 50 MG TABLET PO SCH (10:30)
[2018-01-13] MEDS: LORATADINE 10 MG TABLET PO SCH (10:30)
[2018-01-13] MEDS: ARIPIPRAZOLE 5 MG TABLET PO SCH (10:30)
[2018-01-13] MEDS: PIOGLITAZONE HCL 30 MG TABLET PO SCH (10:31)
[2018-01-13] MEDS: GLIPIZIDE XL 5 MG TAB.ER.24 PO SCH ×2 (10:34→17:53)
[2018-01-13 14:41] LABS: FREE KAPPA LIGHT CHAINS 38.1 mg/L (3.3-19.4); FREE LAMBDA LIGHT CHAINS 21.7 mg/L (5.7-26.3)
[2018-01-13 15:17] LABS: KAPPA LAMBDA RATIO 1.76 (0.26-1.65)
[2018-01-14] MEDS: LANSOPRAZOLE 30 MG TAB.RAP.DR PO SCH (06:41)
[2018-01-14] MEDS: LOSARTAN POTASSIUM 50 MG TABLET PO SCH (09:25)
[2018-01-14] MEDS: ARIPIPRAZOLE 5 MG TABLET PO SCH (09:26)
[2018-01-14] MEDS: LORATADINE 10 MG TABLET PO SCH (09:26)
[2018-01-14] MEDS: GLIPIZIDE XL 5 MG TAB.ER.24 PO SCH ×2 (09:26→17:21)
[2018-01-14] MEDS: PIOGLITAZONE HCL 30 MG TABLET PO SCH (09:27)
[2018-01-14] MEDS: PALIPERIDONE 3 MG TAB.ER.24 PO SCH (09:27)
[2018-01-14] MEDS: HYDROMORPHONE HCL 2 MG TABLET PO PRN (09:28)
[2018-01-14] MEDS: ASPIRIN 81 MG TABLET, ENT COATED PO SCH (09:28)
[2018-01-14] MEDS ORDERED: LIDOCAINE 1% INJ-PF (10 MG/ML) 30 ML SDV ONE (11:04)
[2018-01-14] MEDS ORDERED: FENTANYL CITRATE INJ/PF 100 MCG/2 ML AMPUL ONE (11:04)
--- NOTE | 2018-01-14 12:55 | RADIOLOGY REPORT (SQ) ---
EXAM DESCRIPTION: CT BIOPSY BONE MARROW, NEEDLE; CT NEEDLE PLACEMENT COMPLETED DATE/TIME: 01/14/2018 12:37 pm REASON FOR STUDY: MDS; MSD N17.9 ACUTE KIDNEY FAILURE, UNSPECIFIED COMPARISON: None. TECHNIQUE: CT guided biopsy of the right posterior iliac crest bone marrow performed with conscious sedation. CT Fluoroscopy Time: 4.[address] scanners at this facility use dose modulation, iterative reconstruction, and/or weight based d osing when appropriate to reduce radiation dose to as low as reasonably achievable (ALARA). [facility]: Dose Right [facility]: CareDose [facility]: Dose Right [facility]: Teradose 4D [facility]: [employer] RADIATION DOSE: mGy. FINDINGS: The procedure was discussed with the patient and the patient agreed to the procedure. Prio r to the procedure, a time out was performed to verify the patient's identity and planned procedure. IV pain control was administered and physician direction by the registered nurse using 75 micrograms of fentanyl. Physiologic monitoring was provided before, during, and after sedation. Documentation face to face time, the performing proceduralist, spent monitoring the patient: [address] scanning was performed to localize the percutaneous site for the biopsy approach. After sterile skin prep and local lidocaine for skin and deep tissue anesthesia, a coaxial biopsy nee dle was used to obtain a bone marrow aspirate, and a bone marrow core of tissue. The biopsy tissue wa s received by Becca from cytology to be processed. There were no immediate complications. Pathology is pending at the time of dictation. IMPRESSION: CT GUIDED ASPIRATE AND CORE BIOPSY OF THE RIGHT POSTERIOR ILIAC CREST BONE MARROW PERFOR MED WITHOUT IMMEDIATE COMPLICATION. PATHOLOGY PENDING. COMMENT: Quality ID 145: Final reports for procedures using fluoroscopy that document radiation exp osure indices, or exposure time and number of fluorographic images (if radiation exposure indices are not available) Patient medication list reviewed: Yes- Quality ID# [id number]:Eligible professional attests to documenting i n the medical record they obtained, updated, or reviewed the patient's current medications.. TECHNICAL DOCUMENTATION: JOB ID: [id number] Quality ID# [id number]: Final reports with documentation of one or more dose reduction techniques (e.g., Aut omated exposure control, adjustment of the mA and/or kV according to patient size, use of iterative r econstruction technique) 2010 [employer]- All Rights Reserved Reading location - IP/workstation name: PRINTED CIRCUIT [email or web address] [email or web address]
--- NOTE | 2018-01-14 12:55 | RADIOLOGY REPORT (SQ) ---
EXAM DESCRIPTION: CT BIOPSY BONE MARROW, NEEDLE; CT NEEDLE PLACEMENT COMPLETED DATE/TIME: 01/14/2018 12:37 pm REASON FOR STUDY: MDS; MSD N17.9 ACUTE KIDNEY FAILURE, UNSPECIFIED COMPARISON: None. TECHNIQUE: CT guided biopsy of the right posterior iliac crest bone marrow performed with conscious sedation. CT Fluoroscopy Time: 4.[address] scanners at this facility use dose modulation, iterative reconstruction, and/or weight based d osing when appropriate to reduce radiation dose to as low as reasonably achievable (ALARA). [facility]: Dose Right [facility]: CareDose [facility]: Dose Right [facility]: Teradose 4D [facility]: [employer] RADIATION DOSE: mGy. FINDINGS: The procedure was discussed with the patient and the patient agreed to the procedure. Prio r to the procedure, a time out was performed to verify the patient's identity and planned procedure. IV pain control was administered and physician direction by the registered nurse using 75 micrograms of fentanyl. Physiologic monitoring was provided before, during, and after sedation. Documentation face to face time, the performing proceduralist, spent monitoring the patient: [address] scanning was performed to localize the percutaneous site for the biopsy approach. After sterile skin prep and local lidocaine for skin and deep tissue anesthesia, a coaxial biopsy nee dle was used to obtain a bone marrow aspirate, and a bone marrow core of tissue. The biopsy tissue wa s received by Becca from cytology to be processed. There were no immediate complications. Pathology is pending at the time of dictation. IMPRESSION: CT GUIDED ASPIRATE AND CORE BIOPSY OF THE RIGHT POSTERIOR ILIAC CREST BONE MARROW PERFOR MED WITHOUT IMMEDIATE COMPLICATION. PATHOLOGY PENDING. COMMENT: Quality ID 145: Final reports for procedures using fluoroscopy that document radiation exp osure indices, or exposure time and number of fluorographic images (if radiation exposure indices are not available) Patient medication list reviewed: Yes- Quality ID# [id number]:Eligible professional attests to documenting i n the medical record they obtained, updated, or reviewed the patient's current medications.. TECHNICAL DOCUMENTATION: JOB ID: [id number] Quality ID# [id number]: Final reports with documentation of one or more dose reduction techniques (e.g., Aut omated exposure control, adjustment of the mA and/or kV according to patient size, use of iterative r econstruction technique) 2010 [employer]- All Rights Reserved Reading location - IP/workstation name: BORDER [email or web address] [email or web address]
--- NOTE | 2018-01-14 18:03 | PDOC TRANSFER SUMMARY ---
General - Admit/Disc Date/PCP Admission Date/Primary Care Provider: 01/05/18 15:49 ANNIE ЮЛИЯ Discharge Date: 01/14/18 - Discharge Diagnosis (1) Dyspnea Is this a current diagnosis for this admission?: Yes (2) Chest pain with moderate risk of acute coronary syndrome Is this a current diagnosis for this admission?: Yes (3) Acute renal injury Is this a current diagnosis for this admission?: Yes (4) Closed left tibial fracture Is this a current diagnosis for this admission?: Yes (5) Diabetes mellitus type 2 in obese Is this a current diagnosis for this admission?: Yes (6) HTN (hypertension) Is this a current diagnosis for this admission?: Yes (7) CAD (coronary artery disease) Is this a current diagnosis for this admission?: Yes (8) Schizoaffective disorder, bipolar type Is this a current diagnosis for this admission?: Yes (9) Rhabdomyolysis Is this a current diagnosis for this admission?: Yes (10) Anemia associated with diabetes mellitus Is this a current diagnosis for this admission?: Yes - Additional Information Resuscitation Status: Full Code Home Medications: Aripiprazole [Abilify] 20 mg PO DAILY 01/05/18 Aspirin [Aspirin EC] 81 mg PO DAILY 01/05/18 Fluticasone Propionate [Flonase Nasal Hollister 50 Mcg/Hollister 16 gm] 1 spray NASL BIDP PRN 01/05/18 Furosemide [Lasix 20 mg Tablet] 20 mg PO DAILY 01/05/18 Glipizide [Glipizide Xl] 10 mg PO BID 01/05/18 Ibuprofen 600 mg PO Q6H PRN 01/05/18 Loratadine 10 mg PO DAILY 01/05/18 Losartan/Hydrochlorothiazide [Hyzaar 100-12.5 Tablet] 1 tab PO DAILY 01/05/18 Paliperidone [Invega] 9 mg PO DAILY 01/05/18 Pioglitazone HCl [Actos] 30 mg PO DAILY 01/05/18 Tramadol HCl [Ultram 50 mg Tablet] 50 mg PO Q12HP PRN 01/05/18 History of Present Illness Admission Date/PCP: 01/05/18 15:49 ANNIE REDMAN Patient complains of: Difficultry with breathing History of Present Illness: VICK NAVARRO is a 57 year old female known to my practice who presented to the ED with complain of new onset difficulty with breathing. symptom started couple of hours prior to her arrival. She was recently diagnosed with right proximal tibia fracture follow a fall incident at her on on 12/31/17. She was seen at this facility ED on 01/03/18 with instruction to follow up with orthopedic for casting. Family reported that patient have been virtually immobile and needed two persons assist for transfer. She reported associated intermittent coughing with chest pain that radiate to her back. She denied any fever or chills. She localized her pain to sternal region. She denied any nausea , vomiting abdominal pain or significant reflux. Her initial evaluation in the ED was significant for concern about possible Pulmonary embolism in view of her presenting symptoms and immobility from recent fracture. Her chemistry did suggest acute renal injury. Her VQ scan was subsequently reported negative for pulmonary embolism. She was advised hospitalization for further evaluation of her shortness of breath with chest pain. Her morbidities include Hypertension, CAD, Diabetes Mellitus Type 2, Osteoarthritis, Bipolar Disorder, Schizophrenia, and morbid obesity. Hospital Course Hospital Course: She did ruled out for DVT and Pulmonary embolism. Her evaluation suggested acute rhabdomyolysis. Patient had a fall at home several days prior to her presentation. Her X ray of left leg revealed proximal tibial fracture. She was seen in consultation by Dr Aldo Martino, orthopedic surgeon with recommendation for external immobilizer and physical therapy intervention. She remain on IV hydration support and pain management. She demonstrated anemia that eventually necessitate transfusion of 2 units PRBC. Her anemia workup was suggestive of possible marrow suppression. She was seen in consultation by Dr Solis and eventually had right posterior iliac crest bone marrow biopsy done today under conscious sedation. Post procedure she remain stable. She will be discharged to [facility] on 01/15/2018 for short term rehabilitation. She darshana follow up with me in the office as instructed before discharge from the SNF. Physical Exam Vital Signs: Temp Pulse Resp BP Pulse Ox 97.8 F 99 18 93/51 L 100 01/14/18 16:00 01/14/18 16:00 01/14/18 16:00 01/14/18 16:00 01/14/18 16:00 Intake & Output 01/13/18 01/14/18 01/15/18 06:59 06:59 06:59 Intake Total 3363 2985 Output Total 1216 1600 Balance 2147 1385 Weight 163.1 kg 164.7 kg General appearance: PRESENT: no acute distress, morbidly obese Head exam: PRESENT: atraumatic, normocephalic Mouth exam: PRESENT: moist Respiratory exam: PRESENT: clear to auscultation guru, decreased breath sounds - at lung bases, probably due to body habitus Cardiovascular exam: PRESENT: RRR. ABSENT: diastolic murmur, rubs, systolic murmur GI/Abdominal exam: PRESENT: normal bowel sounds, soft Vascular: Absent: Pallor. Extremities exam: PRESENT: tenderness - left leg due to recent fracture. ABSENT : pedal edema Musculoskeletal exam: PRESENT: tenderness - left leg due to recent fracture, external immobilizer in use Neurological exam: PRESENT: alert, awake, oriented to person, oriented to place , oriented to time, oriented to situation, CN II-XII grossly intact. ABSENT: motor sensory deficit Skin exam: PRESENT: dry, warm, blistering lesions on buttock with allevyn dressing Results Laboratory Results: 01/12/18 20:45 01/11/18 04:14 01/14/18 10:00 Stool Occult Blood NEGATIVE 01/05/18 01/05/18 01/06/18 19:40 19:40 01:26 Creatine Kinase 1561 H 1582 H CK-MB (CK-2) 5.18 H Troponin I < 0.012 01/06/18 01/06/18 01/06/18 01:26 07:21 07:21 Creatine Kinase 1578 H CK-MB (CK-2) 4.62 H 3.79 Troponin I 0.012 < 0.012 Impressions: Foot X-Ray 01/05/18 00:00 IMPRESSION: Fracture follow-up. Tibia/Fibula X-Ray 01/05/18 00:00 IMPRESSION: Fracture follow-up. Chest X-Ray 01/05/18 14:11 IMPRESSION: Borderline cardiomegaly without CHF. Lung Scan-VQ NM 01/05/18 15:11 IMPRESSION: NORMAL VENTILATION-PERFUSION LUNG SCAN. NEGATIVE FOR PULMONARY EMBOLI. Bone Marrow Biopsy w/ CT 01/14/18 00:00 IMPRESSION: CT GUIDED ASPIRATE AND CORE BIOPSY OF THE RIGHT POSTERIOR ILIAC CREST BONE MARROW PERFORMED WITHOUT IMMEDIATE COMPLICATION. PATHOLOGY PENDING. Guidance Needle Placement CT 01/14/18 00:00 IMPRESSION: CT GUIDED ASPIRATE AND CORE BIOPSY OF THE RIGHT POSTERIOR ILIAC CREST BONE MARROW PERFORMED WITHOUT IMMEDIATE COMPLICATION. PATHOLOGY PENDING. Transfer Plan - Disposition Transfer Plan: Transfer to [facility] for short term rehabilitation. Qualifiers - * PATIENT BEING DISCHARGED WITH ANY OF THE FOLLOWING DIAGNOSIS: No Plan Discharge Plan: Transfer to [facility] for short term rehabilitation. Time Spent: Greater than 30 Minutes - more than 50% of my tiem spent in care plan and post transfer coordination.
[2018-01-14] MEDS ORDERED: TRAMADOL HCL 50 MG TABLET PO PRN (18:04)
[2018-01-14] MEDS: NORMAL SALINE 1000 ML 1,000 ML IV PRN (19:04)
[2018-01-14 20:09] LABS: TROPONIN I < 0.012 ng/mL
[2018-01-15] MEDS: LANSOPRAZOLE 30 MG TAB.RAP.DR PO SCH (05:12)
[2018-01-15] MEDS: ENOXAPARIN SODIUM INJ 40 MG/0.4 ML DISP.SYRIN SUBCUT SCH (09:31)
[2018-01-15] MEDS: PIOGLITAZONE HCL 30 MG TABLET PO SCH (09:32)
[2018-01-15] MEDS: GLIPIZIDE XL 5 MG TAB.ER.24 PO SCH (09:32)
[2018-01-15] MEDS: LOSARTAN POTASSIUM 50 MG TABLET PO SCH (09:32)
[2018-01-15] MEDS: LORATADINE 10 MG TABLET PO SCH (09:32)
[2018-01-15] MEDS: PALIPERIDONE 3 MG TAB.ER.24 PO SCH (09:32)
[2018-01-15] MEDS: ARIPIPRAZOLE 5 MG TABLET PO SCH (09:32)
[2018-01-15] MEDS: ASPIRIN 81 MG TABLET, ENT COATED PO SCH (09:32)
[2018-01-15] MEDS ORDERED: ASCORBIC ACID 500 MG TABLET PO SCH (10:00)
[2018-01-15] MEDS ORDERED: FUROSEMIDE 20 MG TABLET PO SCH (10:00)
[2018-01-15] MEDS ORDERED: FERROUS SULFATE 325 MG TABLET PO SCH (10:00)
--- NOTE | 2018-01-15 11:11 | PDOC PROGRESS REPORT ---
Subjective Progress Note for:: 01/15/18 Subjective:: Patient is currently doing well Patient supposed to go to the senior care today but according to the nursing staff unable to take it in the weekends Since denied any chest pain denied any shortness of the breath Reason For Visit: LEFT PROXIMAL TIBIA CLOSED FRACTURE S/P FALL, Physical Exam Vital Signs: Temp Pulse Resp BP Pulse Ox 98.0 F 91 19 135/77 H 100 01/15/18 07:22 01/15/18 07:22 01/15/18 07:22 01/15/18 07:22 01/15/18 07:22 Intake & Output 01/14/18 01/15/18 01/16/18 06:59 06:59 06:59 Intake Total 2985 2500 Output Total 1600 Balance 1385 2500 Weight 164.7 kg 166.8 kg General appearance: PRESENT: no acute distress, well-developed, well-nourished Head exam: PRESENT: atraumatic, normocephalic Eye exam: PRESENT: conjunctiva pink, EOMI, PERRLA. ABSENT: scleral icterus Ear exam: PRESENT: normal external ear exam Mouth exam: PRESENT: moist, tongue midline Neck exam: PRESENT: full ROM. ABSENT: carotid bruit, JVD, lymphadenopathy, thyromegaly Respiratory exam: PRESENT: clear to auscultation guru Cardiovascular exam: PRESENT: RRR. ABSENT: diastolic murmur, rubs, systolic murmur Pulses: PRESENT: normal dorsalis pedis pul, +2 pedal pulses bilateral Vascular exam: PRESENT: normal capillary refill GI/Abdominal exam: PRESENT: normal bowel sounds, soft. ABSENT: distended, guarding, mass, organolmegaly, rebound, tenderness Rectal exam: PRESENT: deferred Neurological exam: PRESENT: alert, awake, oriented to person, oriented to place , oriented to time, oriented to situation, CN II-XII grossly intact. ABSENT: motor sensory deficit Psychiatric exam: PRESENT: appropriate affect, normal mood. ABSENT: homicidal ideation, suicidal ideation Skin exam: PRESENT: dry, intact, warm. ABSENT: cyanosis, rash Results Laboratory Results: 01/12/18 20:45 01/11/18 04:14 01/05/18 01/05/18 01/06/18 19:40 19:40 01:26 Creatine Kinase 1561 H 1582 H CK-MB (CK-2) 5.18 H Troponin I < 0.012 01/06/18 01/06/18 01/06/18 01:26 07:21 07:21 Creatine Kinase 1578 H CK-MB (CK-2) 4.62 H 3.79 Troponin I 0.012 < 0.012 01/14/18 01/14/18 18:03 19:00 Creatine Kinase 254 H CK-MB (CK-2) 1.10 Troponin I < 0.012 Impressions: Foot X-Ray 01/05/18 00:00 IMPRESSION: Fracture follow-up. Tibia/Fibula X-Ray 01/05/18 00:00 IMPRESSION: Fracture follow-up. Chest X-Ray 01/05/18 14:11 IMPRESSION: Borderline cardiomegaly without CHF. Lung Scan-VQ NM 01/05/18 15:11 IMPRESSION: NORMAL VENTILATION-PERFUSION LUNG SCAN. NEGATIVE FOR PULMONARY EMBOLI. Bone Marrow Biopsy w/ CT 01/14/18 00:00 IMPRESSION: CT GUIDED ASPIRATE AND CORE BIOPSY OF THE RIGHT POSTERIOR ILIAC CREST BONE MARROW PERFORMED WITHOUT IMMEDIATE COMPLICATION. PATHOLOGY PENDING. Guidance Needle Placement CT 01/14/18 00:00 IMPRESSION: CT GUIDED ASPIRATE AND CORE BIOPSY OF THE RIGHT POSTERIOR ILIAC CREST BONE MARROW PERFORMED WITHOUT IMMEDIATE COMPLICATION. PATHOLOGY PENDING. Assessment & Plan - Diagnosis (1) Anemia associated with diabetes mellitus Is this a current diagnosis for this admission?: Yes (2) Schizoaffective disorder, bipolar type Is this a current diagnosis for this admission?: Yes (3) Diabetes mellitus type 2 in obese Is this a current diagnosis for this admission?: Yes (4) HTN (hypertension) Qualifiers: Hypertension type: essential hypertension Qualified Code(s): I10 - Essential (primary) hypertension Is this a current diagnosis for this admission?: Yes - Time Time Spent with patient: 15-24 minutes Medications reviewed and adjusted accordingly: Yes Anticipated discharge: SNF Within: Other - Inpatient Certification Medical Necessity: Need Close Monitoring Due to Risk of Patient Decompensation Post Hospital Care: D/C Splitter Head Documentation - Plan Summary Plan Summary: Patient seen and examined no other concern will continues to current medications waiting for the transfer to the rehab
[2018-01-15 12:33] VITALS: BP 131/70
[2018-01-17 17:37] LABS: A/G RATIO. 0.9 (0.7-1.7); ALBUMIN 3 2.9 g/dL (2.9-4.4); ALPHA-1-GLOBULIN 0.3 g/dL (0.0-0.4); GAMMA GLOBULINS 1.1 g/dL (0.4-1.8); IMMUNOGLOBULIN A 257 mg/dL (87-352); IMMUNOGLOBULIN G 1045 mg/dL (700-1600); IMMUNOGLOBULIN M 62 mg/dL (26-217); MONOCLONAL-SPIKE Not Observed g/dL (Not Observed); PROTEIN TOTAL SERUM 6.3 g/dL (6.0-8.5)
== END 2018-01-15 16:05 | DRG 563 ==
LOC: ER 13:38 → OBSVTOIN 15:49 → EH 15:49 → 5 17:57
PROVIDERS: ADMIT Internal Medicine Geriatric Medicine; ATTEND Internal Medicine Geriatric Medicine
PROC: 2W3RX1Z Immobilization of Left Lower Leg using Splint (ICD-10-PCS; principal; 2018-01-05)
PROC: 30233N1 Transfusion of Nonautologous Red Blood Cells into Peripheral Vein, Percutaneous Approach (ICD-10-PCS; 2018-01-11)
PROC: 07DR3ZX Extraction of Iliac Bone Marrow, Percutaneous Approach, Diagnostic (ICD-10-PCS; 2018-01-14)
DX: S82.102A Unspecified fracture of upper end of left tibia, initial encounter for closed fracture (principal); N17.9 Acute kidney failure, unspecified; Z68.44 Body mass index [BMI] 60.0-69.9, adult; M62.82 Rhabdomyolysis; W19.XXXA Unspecified fall, initial encounter; E66.01 Morbid (severe) obesity due to excess calories; E11.9 Type 2 diabetes mellitus without complications; I10 Essential (primary) hypertension; I25.10 Atherosclerotic heart disease of native coronary artery without angina pectoris; F25.0 Schizoaffective disorder, bipolar type; D64.9 Anemia, unspecified; M17.0 Bilateral primary osteoarthritis of knee; R79.1 Abnormal coagulation profile; Z79.899 Other long term (current) drug therapy; Z90.710 Acquired absence of both cervix and uterus; Z88.6 Allergy status to analgesic agent; Z88.8 Allergy status to other drugs, medicaments and biological substances
CPT/HCPCS: 36415; 36430; 38221; 71045; 77012; 78582; 80048; 82272; 82550; 82553; 82607; 82668; 82728; 82746; 82962; 83540; 83550; 83883; 84484; 85025; 85027; 85045; 85379; 85610; 85652; 85730; 86140; 86320; 86850; 86900; 86901; 86920; 93005; 93010; 93970; 96374; 99285; A9540; A9567; G8978-GP; G8979-GP; J1170; J1650; J1815; J3010; J3490; J7030; L1830; P9016; Q9969

== ENCOUNTER 2018-02-24 17:46 | Emergency (ER) | payer MEDICAID, MEDICARE ==
--- NOTE | 2018-02-24 18:13 | ER Document Report ---
HPI - HPI Pain Level: 3 - REPRODUCTIVE Reproductive: DENIES: : Past Medical History - Social History Family History: Reviewed & Not Pertinent - Past Medical History Cardiac Medical History: Reports: Hx Hypertension - ON MEDICATION Denies: Hx Congestive Heart Failure, Hx Coronary Artery Disease, Hx Heart Attack Pulmonary Medical History: Denies: Hx Asthma, Hx Bronchitis, Hx COPD, Hx Pneumonia Neurological Medical History: Denies: Hx Cerebrovascular Accident, Hx Seizures Endocrine Medical History: Reports: Hx Diabetes Mellitus Type 2 Renal/ Medical History: Denies: Hx Peritoneal Dialysis Musculoskeltal Medical History: Reports Hx Arthritis - KNEE PAIN (BILATERAL) Psychiatric Medical History: Reports: Hx Bipolar Disorder, Hx Depression, Hx Schizophrenia Past Surgical History: Denies: Hx Hysterectomy - Immunizations Hx Diphtheria, Pertussis, Tetanus Vaccination: No Hx Pneumococcal Vaccination: 08/30/16 Vertical Provider Document - INFECTION CONTROL TRAVEL OUTSIDE OF THE [place] IN LAST 30 DAYS: No Course - Vital Signs Vital signs: Temp Pulse Resp BP Pulse Ox 98.8 F 101 H 20 118/47 L 98 02/24/18 18:03 02/24/18 18:03 02/24/18 18:03 02/24/18 18:03 02/24/18 18:03 Discharge - Discharge Referrals: DOLORES GUARDADO MD [Primary Care Provider] - Follow up as needed
--- NOTE | 2018-02-24 19:13 | RADIOLOGY REPORT (SQ) ---
EXAM DESCRIPTION: KNEE LEFT 4 VIEW COMPLETED DATE/TIME: 02/24/2018 6:56 pm REASON FOR STUDY: knee pain COMPARISON: 01/03/2018 NUMBER OF VIEWS: Four views. TECHNIQUE: AP, lateral, and both oblique radiographic images acquired of the left knee. LIMITATIONS: None. FINDINGS: MINERALIZATION: Normal. BONES: Transverse fracture with pseudarthrosis in the proximal tibia. Disorganized callus is present . Fracture line is now 1 cm wide. There is no slight angulation laterally. JOINT: No effusion. SOFT TISSUES: No soft tissue swelling. No radio-opaque foreign body. OTHER: No other significant finding. IMPRESSION: Fracture of the proximal tibia as described. TECHNICAL DOCUMENTATION: JOB ID: [id number] [employer]- All Rights Reserved Reading location - IP/workstation name: [email or web address]
--- NOTE | 2018-02-24 19:16 | ER Document Report ---
ED Medical Screen (RME) - General Chief Complaint: Knee Pain Stated Complaint: KNEE PAIN Time Seen by Provider: 02/24/18 18:13 Mode of Arrival: Wheelchair Information source: Patient Notes: 57-year-old orbitally obese female brought in by ambulance because she is unable to ambulate or bear any weight on her left leg. Dr. Martino called them today and said to bring her to the emergency room. She did have an original fracture of her proximal right tibia in December which is getting worse apparently according to Dr. Martino's x-rays on February 15. The x-ray shows widening of the fracture line. The physical therapist yesterday told her not to bear weight because the pain was more severe. She also has pain and swelling to her right knee that she did not have before but started 3 weeks ago. She was discharged from rehab 28 days ago physical therapy was helping her at home. The family is having trouble moving her with a wheelchair and helping her into the potty chair at home. There is a mobility problem at this time. No fever or chills. No chest pain or shortness of breath. No abdominal pain. No vomiting or diarrhea. TRAVEL OUTSIDE OF THE [place] IN LAST 30 DAYS: No - Related Data Allergies/Adverse Reactions: codeine [Codeine] Allergy (Severe, Verified 02/24/18 17:53) swelling,sob naproxen [Naproxen] Allergy (Severe, Verified 02/24/18 17:53) swelling,sob cinnamon Allergy (Intermediate, Verified 02/24/18 17:53) Urticaria Past Medical History - Social History Chew tobacco use (# tins/day): No Frequency of alcohol use: None Drug Abuse: None - Past Medical History Cardiac Medical History: Reports: Hx Hypertension - ON MEDICATION Denies: Hx Congestive Heart Failure, Hx Coronary Artery Disease, Hx Heart Attack Pulmonary Medical History: Denies: Hx Asthma, Hx Bronchitis, Hx COPD, Hx Pneumonia Neurological Medical History: Denies: Hx Cerebrovascular Accident, Hx Seizures Endocrine Medical History: Reports: Hx Diabetes Mellitus Type 2 Renal/ Medical History: Denies: Hx Peritoneal Dialysis Musculoskeltal Medical History: Reports Hx Arthritis - KNEE PAIN (BILATERAL) Psychiatric Medical History: Reports: Hx Bipolar Disorder, Hx Depression, Hx Schizophrenia Past Surgical History: Reports: Hx Gynecologic Surgery - MASS REMOVED FROM OVARY.. Denies: Hx Hysterectomy - Immunizations Hx Diphtheria, Pertussis, Tetanus Vaccination: No History of Influenza Vaccine for 05/2017 - 10/2017 Season: Yes Influenza Administration Date for 05/2017 - 10/2017 Season: 06/30/17 Physical Exam - Vital signs Vitals: Temp Pulse Resp BP Pulse Ox 98.8 F 101 H 20 118/47 L 98 02/24/18 18:03 02/24/18 18:03 02/24/18 18:03 02/24/18 18:03 02/24/18 18:03 Course - Vital Signs Vital signs: Temp Pulse Resp BP Pulse Ox 98.8 F 101 H 20 118/47 L 98 02/24/18 18:03 02/24/18 18:03 02/24/18 18:03 02/24/18 18:03 02/24/18 18:03 Doctor's Discharge - Discharge Referrals: DOLORES GUARDADO MD [Primary Care Provider] - Follow up as needed
--- NOTE | 2018-02-24 20:01 | ER Document Report ---
ED Extremity Problem, Lower - General Chief Complaint: Knee Pain Stated Complaint: KNEE PAIN Time Seen by Provider: 02/24/18 18:13 Mode of Arrival: Wheelchair Information source: Patient Notes: 57-year-old female brought to the emergency department by ambulance for increasing pain in her left knee. Patient states that she was diagnosed with a left proximal tibia fracture in December. She's been following up with Dr. Martino. She's had XR done that showed widening of the fracture line. She's been having physical therapy come to her home. She's been having more pain in the LLE and PT contacted Dr. Martino who advised the patient to go to the ED. Patient says that she's also having bilateral knee swelling. She's having trouble moving with her wheelchair. She denies fever, chills, chest pain, shortness of breath, numbness, tingling, weakness, recent trauma or injury. TRAVEL OUTSIDE OF THE [place] IN LAST 30 DAYS: No - HPI Patient complains to provider of: Pain, Swelling Location: Knee Occurred: Last week Where: Home Onset/Duration: Gradual Quality of pain: Achy Context: Other - Hx of L tibia fracture Exacerbated by: Movement, Walking Relieved by: Nothing - Related Data Allergies/Adverse Reactions: codeine [Codeine] Allergy (Severe, Verified 02/24/18 17:53) swelling,sob naproxen [Naproxen] Allergy (Severe, Verified 02/24/18 17:53) swelling,sob cinnamon Allergy (Intermediate, Verified 02/24/18 17:53) Urticaria Past Medical History - General Information source: Patient - Social History Smoking Status: Never Smoker Chew tobacco use (# tins/day): No Frequency of alcohol use: None Drug Abuse: None Family History: Reviewed & Not Pertinent Patient has suicidal ideation: No Patient has homicidal ideation: No - Past Medical History Cardiac Medical History: Reports: Hx Hypertension - ON MEDICATION Denies: Hx Congestive Heart Failure, Hx Coronary Artery Disease, Hx Heart Attack Pulmonary Medical History: Denies: Hx Asthma, Hx Bronchitis, Hx COPD, Hx Pneumonia Neurological Medical History: Denies: Hx Cerebrovascular Accident, Hx Seizures Endocrine Medical History: Reports: Hx Diabetes Mellitus Type 2 Renal/ Medical History: Denies: Hx Peritoneal Dialysis Musculoskeltal Medical History: Reports Hx Arthritis - KNEE PAIN (BILATERAL) Psychiatric Medical History: Reports: Hx Bipolar Disorder, Hx Depression, Hx Schizophrenia Past Surgical History: Reports: Hx Gynecologic Surgery - MASS REMOVED FROM OVARY.. Denies: Hx Hysterectomy - Immunizations Hx Diphtheria, Pertussis, Tetanus Vaccination: No Hx Pneumococcal Vaccination: 08/30/16 Review of Systems - Review of Systems Constitutional: No symptoms reported EENT: No symptoms reported Cardiovascular: No symptoms reported Respiratory: No symptoms reported Gastrointestinal: No symptoms reported Genitourinary: No symptoms reported Musculoskeletal: Joint pain, Leg swelling Skin: No symptoms reported Neurological/Psychological: No symptoms reported -: Yes All other systems reviewed and negative Physical Exam - Vital signs Vitals: Temp Pulse Resp BP Pulse Ox 98.8 F 101 H 20 118/47 L 98 02/24/18 18:03 02/24/18 18:03 02/24/18 18:03 02/24/18 18:03 02/24/18 18:03 Interpretation: Normal - Notes Notes: PHYSICAL EXAMINATION: GENERAL: Morbidly obese, well-appearing, well-nourished and in no acute distress. HEAD: Atraumatic, normocephalic. EYES: Pupils equal round and reactive to light, extraocular movements intact, conjunctiva are normal. ENT: Nares patent, oropharynx clear without exudates. Moist mucous membranes. NECK: Normal range of motion, supple without lymphadenopathy LUNGS: Breath sounds clear to auscultation bilaterally and equal. No wheezes rales or rhonchi. HEART: Regular rate and rhythm without murmurs ABDOMEN: Soft, nontender, nondistended abdomen. No guarding, no rebound. No masses appreciated. Female : deferred Musculoskeletal: Bilateral knee tenderness to palpation. Bilateral swelling to the lower extremities per patient. No swelling appreciated on my exam. 2+ dorsalis pedis and posterior tibialis pulses. NEUROLOGICAL: Cranial nerves grossly intact. Normal speech, normal gait. Normal sensory, motor exams PSYCH: Normal mood, normal affect. SKIN: Warm, Dry, normal turgor, no rashes or lesions noted. Course - Re-evaluation Re-evalutation: 02/24/18 22:12 Labs and imaging obtained. Labs remarkable for hemoglobin of 7.8. Patient denies chest pain, shortness of breath, lightheadedness, abdominal pain, melena , hematochezia. Venous doppler of the bilateral lower extremities is negative XR of the R knee does not show an acute process. XR of the L knee shows transverse fracture in the proximal tibia that is 1cm wide. No swelling. I contacted the orthopedic surgeon it operations specialist, Dr. Rosado. He recommends having the patient use her walker and maintain toe touch with minimal weight bearing. I contacted the patient's PCP, Dr. Dr. Frost. I discussed the fall in hemoglobin and the difficulty the patient has been having ambulating. He does not feel that the patient needs admission at this time. He says that he will see her in the office and trend her hemoglobin as she's asymptomatic and stable. He wants the patient to follow up with Dr. Martino for her ongoing knee pain and swelling. I discussed the plan of care with the patient. She's agreeable with following up with her PCP and orthopedic surgeon this week and returning for worsening symptoms. - Vital Signs Vital signs: Temp Pulse Resp BP Pulse Ox 98.8 F 101 H 20 118/47 L 98 02/24/18 18:03 02/24/18 18:03 02/24/18 18:03 02/24/18 18:03 02/24/18 18:03 - Laboratory Result Diagrams: 02/24/18 20:10 02/24/18 20:10 Laboratory results interpreted by me: 02/24/18 02/24/18 20:10 20:10 RBC 2.76 L Hgb 7.8 L Hct 23.3 L RDW 15.8 H Chloride 109 H Carbon Dioxide 21 L BUN 72 H Creatinine 1.96 H Est GFR ( Amer) 32 L Est GFR (Non-Af Amer) 26 L Glucose 57 L Discharge - Discharge Clinical Impression: Tibial fracture Qualifiers: Encounter type: subsequent encounter Tibia location: proximal Fracture type: closed Fracture morphology: unspecified fracture morphology Laterality: left Fracture healing: with nonunion Qualified Code(s): S82.102K - Unspecified fracture of upper end of left tibia, subsequent encounter for closed fracture with nonunion Anemia Qualifiers: Anemia type: unspecified type Qualified Code(s): D64.9 - Anemia, unspecified Condition: Good Disposition: HOME, SELF-CARE Instructions: Fractured Tibia ([facility]) Referrals: DOLORES GUARDADO MD [ACTIVE STAFF] - Follow up as needed ESTEFANY MARTINO MD [ACTIVE STAFF] - Follow up as needed
--- NOTE | 2018-02-24 20:07 | RADIOLOGY REPORT (SQ) ---
EXAM DESCRIPTION: KNEE RIGHT 4 VIEWS COMPLETED DATE/TIME: 02/24/2018 7:41 pm REASON FOR STUDY: right knee pain and swelling COMPARISON: None. NUMBER OF VIEWS: Four views. TECHNIQUE: AP, lateral, and both oblique radiographic images acquired of the right knee. LIMITATIONS: None. FINDINGS: MINERALIZATION: Normal. BONES: No acute fracture or dislocation. No worrisome bone lesions. JOINT: There is narrowing of the medial joint compartment with marginal osteophytes. Subchondral scl erosis. SOFT TISSUES: No soft tissue swelling. No radio-opaque foreign body. OTHER: No other significant finding. IMPRESSION: Degenerative joint disease. No fracture or other acute osseous abnormality. TECHNICAL DOCUMENTATION: JOB ID: [id number] [employer]- All Rights Reserved Reading location - IP/workstation name: [email or web address]
[2018-02-24 20:39] LABS: ABSOLUTE EOSINOPHILS # (AUTO) 0.1 10^3/uL (0.0-0.6); ABSOLUTE LYMPHOCYTES (AUTO) 1.3 10^3/uL (0.5-4.7); ABSOLUTE MONOCYTES (AUTO) 0.7 10^3/uL (0.1-1.4); ABSOLUTE NEUT (AUTO) 5.8 10^3/uL (1.7-8.2); BASOPHILS % (AUTO) 0.5 % (0-2); EOSINOPHILS % (AUTO) 1.8 % (0-6); HEMATOCRIT 23.3 % (36.0-47.0); LYMPHOCYTES % (AUTO) 16.8 % (13-45); MEAN CORPUSCULAR HEMOGLOBIN 28.2 pg (27.0-33.4); MEAN CORPUSCULAR HGB CONC 33.3 g/dL (32.0-36.0); MEAN CORPUSCULAR VOLUME 85 fl (80-97); MONOCYTES % (AUTO) 8.8 % (3-13); PLATELET COUNT 257 10^3/uL (150-450); RED BLOOD COUNT 2.76 10^6/uL (3.72-5.28); RED CELL DISTRIBUTION WIDTH 15.8 % (11.5-14.0); SEGMENTED NEUTROPHILS % (AUTO) 72.1 % (42-78); TOTAL CELLS COUNTED % (AUTO) 100 %
[2018-02-24 20:46] LABS: APPEARANCE,URINE CLEAR; BILIRUBIN,URINE NEGATIVE (NEGATIVE); COLOR,URINE YELLOW; GLUCOSE, URINE NEGATIVE (NEGATIVE); KETONES,URINE NEGATIVE (NEGATIVE); LEUKOCYTE ESTERASE,URINE NEGATIVE (NEGATIVE); NITRITE,URINE NEGATIVE (NEGATIVE); PROTEIN,URINE NEGATIVE (NEGATIVE); URINE SPECIFIC GRAVITY 1.011; UROBILINOGEN,URINE NEGATIVE mg/dL (<2.0)
[2018-02-24 20:50] LABS: HEMOGLOBIN 7.8 g/dL (12.0-15.5)
[2018-02-24 20:56] LABS: ALANINE AMINOTRANSFERASE 30 U/L (9-52); ALBUMIN 3.8 g/dL (3.5-5.0); ALKALINE PHOSPHATASE 84 U/L (38-126); ANION GAP 14 (5-19); ASPARTATE AMINO TRANSFERASE 33 U/L (14-36); BILIRUBIN,DIRECT 0.4 mg/dL (0.0-0.4); BILIRUBIN,TOTAL 0.4 mg/dL (0.2-1.3); BLOOD UREA NITROGEN 72 mg/dL (7-20); CALCIUM 9.5 mg/dL (8.4-10.2); CARBON DIOXIDE 21 mmol/L (22-30); CHLORIDE 109 mmol/L (98-107); GLUCOSE 57 mg/dL (75-110); POTASSIUM 4.5 mmol/L (3.6-5.0); TOTAL PROTEIN 6.9 g/dL (6.3-8.2)
[2018-02-24 23:54] VITALS: BP 126/57
--- NOTE | 2018-02-25 08:19 | RADIOLOGY REPORT (SQ) ---
EXAM DESCRIPTION: VENOUS BILATERAL LOWER COMPLETED DATE/TIME: 02/24/2018 10:30 pm REASON FOR STUDY: leg swelling COMPARISON: 01/05/2018 bilateral lower extremity venous Doppler TECHNIQUE: Dynamic and static wallis scale and color images acquired of both lower extremity venous sy stems. Selected spectral images acquired with additional compression and augmentation maneuvers. Imag es stored on PACS. LIMITATIONS: This study is very limited. Patient is morbidly obese, and gave limited cooperation. She refused scanning of the left popliteal vein. Visualization of the calf veins is very limited. FINDINGS: RIGHT LEG COMMON FEMORAL AND FEMORAL: Normal phasicity, compression and augmentation. No visualized echogenic m aterial on wallis scale. No defects on color images. POPLITEAL: Not well seen. CALF VESSELS: Posterior tibial veins have normal compression and augmentation. GSV AND SSV: Not well seen ANY DEEP VENOUS INSUFFICIENCY: Not evaluated. ANY EVIDENCE OF POPLITEAL CYST: No. OTHER: No other significant finding. LEFT LEG COMMON FEMORAL AND FEMORAL: Normal phasicity, compression and augmentation. No visualized echogenic m aterial on wallis scale. No defects on color images. POPLITEAL: Not well seen CALF VESSELS: The posterior tibial veins have compression and augmentation. GSV AND SSV: Not well seen ANY DEEP VENOUS INSUFFICIENCY: Not evaluated. ANY EVIDENCE POPLITEAL CYST: No. OTHER: No other significant finding. IMPRESSION: No Doppler evidence of common femoral vein, superficial femoral vein, or posterior tibia l vein clot in either leg. TECHNICAL DOCUMENTATION: JOB ID: [id number] [employer]- All Rights Reserved Reading location - IP/workstation name: [email or web address]
== END 2018-02-25 00:39 | disposition home or self-care (01) ==
LOC: ER 17:46
DX: S82.102K Unspecified fracture of upper end of left tibia, subsequent encounter for closed fracture with nonunion (principal); X58.XXXD Exposure to other specified factors, subsequent encounter; D64.9 Anemia, unspecified; M25.562 Pain in left knee; E66.01 Morbid (severe) obesity due to excess calories; I10 Essential (primary) hypertension; E11.9 Type 2 diabetes mellitus without complications; Z88.6 Allergy status to analgesic agent
CPT/HCPCS: 99284; 36415; 87086; 85025; 80053; 81001; 93970; 73564 ×2; L1830

== ENCOUNTER → 2018-04-07 | Outpatient (CLI) | payer MEDICARE, MEDICAID ==
[2018-04-07 12:58] LABS: ABSOLUTE EOSINOPHILS # (AUTO) 0.2 10^3/uL (0.0-0.6); ABSOLUTE LYMPHOCYTES (AUTO) 1.2 10^3/uL (0.5-4.7); ABSOLUTE MONOCYTES (AUTO) 0.7 10^3/uL (0.1-1.4); BASOPHILS % (AUTO) 0.5 % (0-2); EOSINOPHILS % (AUTO) 2.2 % (0-6); HEMATOCRIT 34.8 % (36.0-47.0); HEMOGLOBIN 11.1 g/dL (12.0-15.5); LYMPHOCYTES % (AUTO) 15.2 % (13-45); MEAN CORPUSCULAR HEMOGLOBIN 27.8 pg (27.0-33.4); MEAN CORPUSCULAR HGB CONC 31.8 g/dL (32.0-36.0); MEAN CORPUSCULAR VOLUME 87 fl (80-97); MONOCYTES % (AUTO) 8.7 % (3-13); PLATELET COUNT 299 10^3/uL (150-450); RED BLOOD COUNT 3.99 10^6/uL (3.72-5.28); RED CELL DISTRIBUTION WIDTH 17.2 % (11.5-14.0); SEGMENTED NEUTROPHILS % (AUTO) 73.4 % (42-78); TOTAL CELLS COUNTED % (AUTO) 100 %; WHITE BLOOD COUNT 8.1 10^3/uL (4.0-10.5)
[2018-04-07 13:14] LABS: ALANINE AMINOTRANSFERASE 27 U/L (9-52); ALBUMIN 4.9 g/dL (3.5-5.0); ALKALINE PHOSPHATASE 107 U/L (38-126); ANION GAP 17 (5-19); ASPARTATE AMINO TRANSFERASE 21 U/L (14-36); BILIRUBIN,DIRECT 0.4 mg/dL (0.0-0.4); BILIRUBIN,TOTAL 0.6 mg/dL (0.2-1.3); BLOOD UREA NITROGEN 48 mg/dL (7-20); CARBON DIOXIDE 30 mmol/L (22-30); CHLORIDE 90 mmol/L (98-107); GLUCOSE 94 mg/dL (75-110); POTASSIUM 4.4 mmol/L (3.6-5.0); SODIUM 136.7 mmol/L (137-145); TOTAL PROTEIN 8.7 g/dL (6.3-8.2)
--- NOTE | 2018-04-07 13:27 | RADIOLOGY REPORT (SQ) ---
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 TECHNIQUE: AP, lateral and oblique radiographic images acquired of the left foot. LIMITATIONS: None. FINDINGS: MINERALIZATION: Normal. BONES: No acute fracture or dislocation. Small plantar calcaneal spur. JOINTS: No effusions. SOFT TISSUES: There a calcaneal soft tissue ulcer, with air bubbles tracking into the soft tissues. No underlying gross periosteal new bone or aggressive demineralization of the adjacent calcaneus worr isome for osteomyelitis OTHER: Mild diffuse forefoot soft tissue swelling. No radiopaque foreign body or soft tissue gas in this area IMPRESSION: Soft tissue ulcer without gross calcaneal findings to suggest osteomyelitis TECHNICAL DOCUMENTATION: JOB ID: [id number] [employer]- All Rights Reserved Reading location - IP/workstation name: [email or web address]
[2018-04-07 13:39] LABS: ERYTHROCYTE SEDIMENTATION RATE 57 mm/hr (0-30)
== END ==
LOC: OD 12:07
PROVIDERS: ATTEND Preventive Medicine Undersea and Hyperbaric Medicine
DX: E11.621 Type 2 diabetes mellitus with foot ulcer (principal); L97.422 Non-pressure chronic ulcer of left heel and midfoot with fat layer exposed
CPT/HCPCS: 36415; 80053; 83036; 85025; 85652; 86140

== ENCOUNTER → 2018-04-13 | Outpatient (CLI) | payer MEDICAID, MEDICARE ==
--- NOTE | 2018-04-15 08:51 | XCELERA REPORT ---
[address] [address] Lower Extremity Arterial Evaluation Name: VICK NAVARRO Age: 57 yrs Gender: Female : 1960 Patient Status: Preadmit Patient Location: Study Date: 04/13/2018 08:28 AM Procedure: A color flow and duplex scan of the lower extremity arteries was performed bilaterally with velocity and waveform anaylsis. Reason For Study: ULCER Ordering Physician: TOMAS SHETTY Performed By: Vasiliy Crenshaw Measurements and Calculations Right Left UNDERWATER WELDER PSV 214.4 237.6 cm/sec Prox PFA PSV -122.2 203.2 cm/sec Prox SFA PSV 162.4 220.0 cm/sec Mid SFA PSV -93.8 -161.5cm/sec Dist SFA PSV -98.7 -104.8cm/sec Prox Pop A PSV 56.8 -48.7 cm/sec Dist ROXIE PSV 79.6 67.7 cm/sec Dist TUNNEL WORKER PSV 84.9 cm/sec Kevin Pedis PSV -46.9 -40.2 cm/sec Right Side Arterial Evaluation Study challenging due to obese body habitus. Normal velocity and triphasic waveforms noted from the Common Femoral artery to the infrageniculate vessels. Biphasic Dorsalis Pedis. 0-19% stenosis at the Dorsalis Pedis. Ankle Brachial index was declined. Left Side Arterial Evaluation Study challenging due to obese body habitus. Normal velocity(slightly elevated in the Common Femoral) and triphasic waveforms noted from the Common Femoral artery to the Popliteal. The Posterior Tibial not seen.. Biphasic Anterior Tibial. 0-19% stenosis at the Anterior Tibial. Ankle Brachial index was not done due to ulcer. Interpretation Summary Mild hemodynamically significant lesions in the bilateral lower extremities, on duplex imaging, at rest. : TOMAS SHETTY > Jhonny Oliva
--- NOTE | 2018-04-15 08:52 | XCELERA REPORT ---
[address] [address] Lower Extremity Venous Evaluation Procedure: A bilateral duplex scan of the lower extremity veins was performed. The evaluation included responses to compression and other maneuvers with patient in the supine and standing positions to assess venous insufficiency. Right Sided Venous Evaluation Deep venous system evaluatiion shows patent veins with no obstruction or significant reflux identified. Sapheno Femoral junction: no reflux. Femoral vein reflux: no reflux. Greater Saphenous vein, Proximal thigh: reflux: no reflux. Greater Saphenous vein, Distal thigh: reflux: no reflux. Greater Saphenous vein, Proximal below knee: reflux: no reflux. No significant Perforators identified. Left Sided Venous Evaluation Deep venous system evaluatiion shows patent veins with no obstruction or significant reflux identified. Sapheno Femoral junction: no reflux. Femoral vein reflux: no reflux. Greater Saphenous vein, Proximal thigh: reflux: no reflux. Greater Saphenous vein, Distal thigh: reflux: no reflux. Greater Saphenous vein, Proximal below knee: reflux: no reflux. No significant Perforators identified. Interpretation Summary No duplex evidence of DVT or obstruction in the bilateral lower extremities. No significant deep or superficial reflux noted. Name: VICK NAVARRO Age: 57 yrs Gender: Female : 1960 Patient Status: Preadmit Patient Location: SP Study Date: 04/13/2018 09:14 AM Reason For Study: ULCER Ordering Physician: TOMAS SHETTY Performed By: Vasiliy Crenshaw : TOMAS SHETTY > Jhonny Oliva
== END ==
LOC: SP 07:01
PROVIDERS: ATTEND Preventive Medicine Undersea and Hyperbaric Medicine
DX: L97.422 Non-pressure chronic ulcer of left heel and midfoot with fat layer exposed (principal)
CPT/HCPCS: 93925; 93970

== ENCOUNTER 2018-06-06 10:39 | Emergency (ER) | payer MEDICARE, MEDICAID ==
[2018-06-06] MEDS ORDERED: DIPH/PERTUSS(ACELL)/TETANUS VAC/PF 0.5 ML SYR (>=10YO) IM ONE (11:12)
--- NOTE | 2018-06-06 11:54 | ER Document Report ---
ED General - General Chief Complaint: Ankle Injury Stated Complaint: FALL,LEG INJURY Mode of Arrival: Medic Information source: Patient, Relative TRAVEL OUTSIDE OF THE [place] IN LAST 30 DAYS: No - HPI Patient complains to provider of: Pain in the right leg post fall Onset: Other - This 58-year-old female with morbid obesity, hypertension, previously known fracture in the left tibia presents for evaluation of pain and malalignment of the right leg after a fall while walking with her walker, she fell onto her legs was not able to get up thereafter and noted that there was a lot of blood. She denies any trauma elsewhere, loss of consciousness, abdominal pain diarrhea constipation dysuria headache back pain chest pain or shortness of breath. - Related Data Allergies/Adverse Reactions: codeine [Codeine] Allergy (Severe, Verified 02/24/18 17:53) swelling,sob naproxen [Naproxen] Allergy (Severe, Verified 02/24/18 17:53) swelling,sob cinnamon Allergy (Intermediate, Verified 02/24/18 17:53) Urticaria Past Medical History - General Information source: Patient, Relative - Social History Smoking Status: Never Smoker Chew tobacco use (# tins/day): No Frequency of alcohol use: None Drug Abuse: None Family History: Reviewed & Not Pertinent Patient has suicidal ideation: No Patient has homicidal ideation: No - Past Medical History Cardiac Medical History: Reports: Hx Hypertension - ON MEDICATION Denies: Hx Congestive Heart Failure, Hx Coronary Artery Disease, Hx Heart Attack Pulmonary Medical History: Denies: Hx Asthma, Hx Bronchitis, Hx COPD, Hx Pneumonia Neurological Medical History: Denies: Hx Cerebrovascular Accident, Hx Seizures Endocrine Medical History: Reports: Hx Diabetes Mellitus Type 2 Renal/ Medical History: Denies: Hx Peritoneal Dialysis Musculoskeletal Medical History: Reports Hx Arthritis - KNEE PAIN (BILATERAL) Psychiatric Medical History: Reports: Hx Bipolar Disorder, Hx Depression, Hx Schizophrenia Past Surgical History: Reports: Hx Gynecologic Surgery - MASS REMOVED FROM OVARY.. Denies: Hx Hysterectomy - Immunizations Hx Diphtheria, Pertussis, Tetanus Vaccination: No Hx Pneumococcal Vaccination: 08/30/16 Review of Systems - Review of Systems -: Yes All other systems reviewed and negative Physical Exam - Vital signs Vitals: Temp Pulse Resp BP Pulse Ox 98.7 F 110 H 19 92/44 L 95 06/06/18 10:54 06/06/18 10:54 06/06/18 10:54 06/06/18 10:54 06/06/18 10:54 - General General appearance: Alert In distress: Mild - HEENT Head: Normocephalic Eyes: Normal Conjunctiva: Normal Cornea: Normal Extraocular movements intact: Yes Eyelashes: Normal Pupils: PERRL - Respiratory Respiratory status: No respiratory distress Chest status: Nontender Breath sounds: Normal Chest palpation: Normal - Cardiovascular Rhythm: Regular Heart sounds: Normal auscultation Murmur: No - Abdominal Inspection: Normal Distension: No distension Tenderness: Nontender - Back Back: Normal - Extremities General upper extremity: Normal inspection, Nontender, Normal ROM, Normal strength Shoulder: Normal Arm: Normal Elbow: Normal Forearm: Normal Wrist: Normal Thigh: Normal Knee: Other - The left knee is obviously malaligned there is an internal rotation in the left lower extremity distal to the knee The right lower extremity demonstrates obvious malalignment in the right ankle with a 2 cm wound over the anterior aspect at the distal morris Course - Re-evaluation Re-evalutation: This morbidly obese 58-year-old female presents with an obvious abnormality of the right lower extremity. She had a twist and fall while walking with her walker, she has a known tibia fracture in the left leg, on examination she has an obvious malalignment of the right lower extremity with an open component over the anterior aspect of the tibia. Bedside x-rays demonstrate this patient has a mid shaft tibia fracture with profound displacement. There is obvious displacement of the patient's fibula. We will plan to administer 2 g of Ancef for this patient. We will plan for further x-rays and consultation with Dr. castaneda. 06/06/18 12:10 Spoke to on-call orthopedic surgeon Dr. castaneda he notes that patient will likely require a higher level of care postoperatively. He is concerned about anesthesias willingness to sedate this patient for the surgery. We will have anesthesia evaluate the patient in the emergency department for potential operative fixation. 06/06/18 13:47 Patient noted to have marked hyponatremia and hypokalemia, patient's also hypoalbuminemic. We will plan for repletion low level of her sodium, repeated labs to ensure that they are correct repeat does demonstrate that the patient does not fact have profound hyponatremia as well as hypokalemia we will also replete magnesium. Have spoken to the on-call orthopedic surgeon as well as on-call anesthesiologist who believe this patient would benefit from tertiary care, patient will likely require intensive level unit care after surgery. Have spoken to the trauma surgeon Dr. Jaramillo at [facility] who agrees to accept this patient in transfer for management further. Have readministered dose of fentanyl for analgesia. Patient's tetanus has been updated, she is received 2 g of Ancef. Plan is for this patient undergo transfer to [facility] and is previously directed for further definitive management. Will initiate treatment with hypertonic saline in the emergency department 100 mL of 3%, will administer 20 mEq of potassium for her hypo-Krystle Lucía, will administer magnesium for hypomagnesemia 1 g IV. Have spoken to [facility] who agrees to evaluate this patient. Patient was received in transport remained hemodynamically stable at the time of transport. Though stable the patient was noted to be profoundly ill given that she has bilateral lower extremity tibial fractures, she has profound hyponatremia and hypokalemia as well as worsening renal disease. We have intervened on both electrolytes as well as her orthopedic injuries with antibiotics as well as supplementation of her electrolytes. - Vital Signs Vital signs: Temp Pulse Resp BP Pulse Ox 98.7 F 110 H 18 95/57 L 99 06/06/18 14:01 06/06/18 10:54 06/06/18 14:01 06/06/18 14:01 06/06/18 14:01 - Laboratory Result Diagrams: 06/06/18 11:36 06/06/18 12:44 Laboratory results interpreted by me: 06/06/18 06/06/18 06/06/18 11:36 11:36 12:44 WBC 13.9 H Hgb 10.2 L Hct 31.0 L MCV 79 L MCH 26.0 L RDW 16.6 H Seg Neuts % (Manual) 93 H Lymphocytes % (Manual) 4 L Abs Neuts (Manual) 12.9 H Sodium 116.2 L* 114.5 L* Potassium 2.4 L* 2.4 L* Chloride 76 L 71 L Carbon Dioxide 19 L Anion Gap 21 H BUN 51 H 57 H Creatinine 2.60 H 2.71 H Est GFR ( Amer) 23 L 22 L Est GFR (Non-Af Amer) 19 L 18 L Glucose 193 H 191 H Calcium 8.0 L Critical Care Note - Critical Care Note Total time excluding time spent on procedures (mins): 60 Discharge - Discharge Clinical Impression: Hyponatremia Tibia/fibula fracture Qualifiers: Encounter type: initial encounter Fracture type: open Open fracture type: open type I or II Laterality: right Qualified Code(s): S82.201B - Unspecified fracture of shaft of right tibia, initial encounter for open fracture type I or II Fall Qualifiers: Encounter type: initial encounter Qualified Code(s): W19.XXXA - Unspecified fall, initial encounter Condition: Critical Disposition: On License Of [facility] Referrals: CHESTER ORR MD [ACTIVE STAFF] - Follow up as needed
--- NOTE | 2018-06-06 11:59 | RADIOLOGY REPORT (SQ) ---
EXAM DESCRIPTION: ANKLE RIGHT COMPLETE; KNEE RIGHT 2 VIEWS COMPLETED DATE/TIME: 06/06/2018 11:44 am; 06/06/2018 11:38 am REASON FOR STUDY: fall; knee pain post fracture COMPARISON: None. NUMBER OF VIEWS: Two views right ankle Two views right knee TECHNIQUE: AP and lateral portable right ankle two views AP and lateral portable right knee two views LIMITATIONS: None. FINDINGS: Acute spiral fracture distal right tibia, with small butterfly fragment. Distal tibial di aphysis/metaphysis is dorsally angulated, with over riding of bony fragments by 3 cm. Acute spiral fracture distal right fibula with butterfly fragment. There is dorsal displacement and angulation of the distal fracture fragments. Fibula fracture is open, with a laceration and gauze pad over the anterior right lower leg Two views of the knee demonstrate no acute fracture. Patellofemoral and medial compartment osteoarth ritis IMPRESSION: Acute spiral fractures of the distal right tibia fibula, with dorsal angulation of the d istal fracture fragments. Over riding of the tibia fracture fragments by 3 cm. Fibula fracture is open, with a laceration and gauze pad over the anterior right lower leg TECHNICAL DOCUMENTATION: JOB ID: [id number] [employer]- All Rights Reserved Reading location - IP/workstation name: [email or web address]
--- NOTE | 2018-06-06 11:59 | RADIOLOGY REPORT (SQ) ---
EXAM DESCRIPTION: ANKLE RIGHT COMPLETE; KNEE RIGHT 2 VIEWS COMPLETED DATE/TIME: 06/06/2018 11:44 am; 06/06/2018 11:38 am REASON FOR STUDY: fall; knee pain post fracture COMPARISON: None. NUMBER OF VIEWS: Two views right ankle Two views right knee TECHNIQUE: AP and lateral portable right ankle two views AP and lateral portable right knee two views LIMITATIONS: None. FINDINGS: Acute spiral fracture distal right tibia, with small butterfly fragment. Distal tibial di aphysis/metaphysis is dorsally angulated, with over riding of bony fragments by 3 cm. Acute spiral fracture distal right fibula with butterfly fragment. There is dorsal displacement and angulation of the distal fracture fragments. Fibula fracture is open, with a laceration and gauze pad over the anterior right lower leg Two views of the knee demonstrate no acute fracture. Patellofemoral and medial compartment osteoarth ritis IMPRESSION: Acute spiral fractures of the distal right tibia fibula, with dorsal angulation of the d istal fracture fragments. Over riding of the tibia fracture fragments by 3 cm. Fibula fracture is open, with a laceration and gauze pad over the anterior right lower leg TECHNICAL DOCUMENTATION: JOB ID: [id number] [employer]- All Rights Reserved Reading location - IP/workstation name: [email or web address]
[2018-06-06] MEDS ORDERED: CEFAZOLIN 2 GM/D5W RTU 2 GM/50 ML RTUPB IV SCH (12:00)
--- NOTE | 2018-06-06 12:00 | RADIOLOGY REPORT (SQ) ---
EXAM DESCRIPTION: FOOT RIGHT COMPLETE COMPLETED DATE/TIME: 06/06/2018 11:38 am REASON FOR STUDY: fall COMPARISON: Right ankle films same date NUMBER OF VIEWS: Two views. TECHNIQUE: Portable AP and lateral radiographic images acquired of the right foot. LIMITATIONS: None. FINDINGS: Normal bone density. Acute Spiral fracture distal right fibular diaphysis, open fracture with proximal fibular fragment ju st deep to skin laceration with bandage Mild diffuse dorsal forefoot soft tissue swelling. No disruption of the ankle mortise or fracture/ma lalignment of the right foot. IMPRESSION: Acute Distal fibular fracture at the edge of the field of view. No acute right foot fracture TECHNICAL DOCUMENTATION: JOB ID: [id number] [employer]- All Rights Reserved Reading location - IP/workstation name: [email or web address]
--- NOTE | 2018-06-06 12:02 | RADIOLOGY REPORT (SQ) ---
EXAM DESCRIPTION: KNEE LEFT 3 VIEWS COMPLETED DATE/TIME: 06/06/2018 11:38 am REASON FOR STUDY: previous fracture COMPARISON: Left knee films 02/24/2018, 01/03/2018 NUMBER OF VIEWS: Two views. TECHNIQUE: Portable AP and lateral radiographic images acquired of the left knee. LIMITATIONS: None. FINDINGS: Nonunited subacute fractures of the left proximal tibial and fibular metaphysis with pseud oarthrosis. There is varus angulation of the distal tibia and fibula, and bulky non bridging callus medially at the proximal tibial metaphysis. Fracture occurred 01/03/2018. IMPRESSION: Nonunited subacute fractures of the left proximal tibia and fibular metaphysis TECHNICAL DOCUMENTATION: JOB ID: [id number] [employer]- All Rights Reserved Reading location - IP/workstation name: [email or web address]
[2018-06-06] MEDS ORDERED: FENTANYL CITRATE INJ/PF 100 MCG/2 ML AMPUL IV ONE ×2 (12:09→13:36)
[2018-06-06 12:17] LABS: ALANINE AMINOTRANSFERASE 24 U/L (9-52); ALBUMIN 3.6 g/dL (3.5-5.0); ALKALINE PHOSPHATASE 82 U/L (38-126); ASPARTATE AMINO TRANSFERASE 29 U/L (14-36); BILIRUBIN,DIRECT 0.3 mg/dL (0.0-0.4); BILIRUBIN,TOTAL 0.6 mg/dL (0.2-1.3); BLOOD UREA NITROGEN 51 mg/dL (7-20); GLUCOSE 193 mg/dL (75-110); TOTAL PROTEIN 6.6 g/dL (6.3-8.2)
[2018-06-06 12:19] LABS: HEMOGLOBIN 10.2 g/dL (12.0-15.5); MEAN CORPUSCULAR HGB CONC 32.9 g/dL (32.0-36.0); MEAN CORPUSCULAR VOLUME 79 fl (80-97); PLATELET COUNT 272 10^3/uL (150-450); RED BLOOD COUNT 3.92 10^6/uL (3.72-5.28); RED CELL DISTRIBUTION WIDTH 16.6 % (11.5-14.0); WHITE BLOOD COUNT 13.9 10^3/uL (4.0-10.5)
[2018-06-06 12:23] LABS: CARBON DIOXIDE 19 mmol/L (22-30); CHLORIDE 76 mmol/L (98-107)
[2018-06-06 12:29] LABS: ANION GAP 21 (5-19)
[2018-06-06 12:33] LABS: POTASSIUM 2.4 mmol/L (3.6-5.0); SODIUM 116.2 mmol/L (137-145)
[2018-06-06 12:42] LABS: ABSOLUTE LYMPHOCYTES# (MANUAL) 0.6 10^3/uL (0.5-4.7); ABSOLUTE MONOCYTES # (MANUAL) 0.4 10^3/uL (0.1-1.4); ABSOLUTE NEUTROPHILS# (MANUAL) 12.9 10^3/uL (1.7-8.2); BASOPHILS % (MANUAL) 0 % (0-2); EOSINOPHILS % (MANUAL) 0 % (0-6); LYMPHOCYTES % (MANUAL) 4 % (13-45); MONOCYTES % (MANUAL) 3 % (3-13); SEGMENTED NEUTROPHILS % (MAN) 93 % (42-78); TOTAL CELLS COUNTED 100
[2018-06-06 12:43] LABS: PLATELET COMMENT ADEQUATE; PLATELET GIANT PRESENT; PLATELET LARGE PRESENT
[2018-06-06 12:46] LABS: BURR CELLS SLIGHT; POIKILOCYTOSIS 1+
[2018-06-06 12:47] LABS: OVALOCYTES SLIGHT
[2018-06-06 13:19] LABS: ANION GAP 19 (5-19); BLOOD UREA NITROGEN 57 mg/dL (7-20); CALCIUM 8.6 mg/dL (8.4-10.2); CARBON DIOXIDE 25 mmol/L (22-30); CHLORIDE 71 mmol/L (98-107); GLUCOSE 191 mg/dL (75-110)
[2018-06-06 13:27] LABS: POTASSIUM 2.4 mmol/L (3.6-5.0)
[2018-06-06 13:28] LABS: SODIUM 114.5 mmol/L (137-145)
[2018-06-06] MEDS ORDERED: MAGNESIUM SULFATE PF/INJ 40 MEQ/10 ML SDV IV ONE (13:35)
[2018-06-06] MEDS ORDERED: MAGNESIUM SULFATE/D5W 1 GM/100 ML RTUPB IV ONE (14:00)
[2018-06-06] MEDS ORDERED: SODIUM CHLORIDE 3% 100 ML IV ONE (14:00)
[2018-06-06 14:15] VITALS: BP 95/57
[2018-06-06] MEDS ORDERED: POTASSI CL 20 MEQ/50 ML RIDER 20 MEQ/50 ML RTUPB IV ONE (14:30)
--- NOTE | 2018-06-06 18:07 | EKG REPORT ---
SEVERITY:- ABNORMAL ECG - SINUS RHYTHM PROBABLE LEFT ATRIAL ABNORMALITY LEFT VENTRICULAR HYPERTROPHY ANTERIOR Q WAVES, POSSIBLY DUE TO LVH PROLONGED QT INTERVAL : Confirmed by: Annamaria Vasquez MD 06-Jun-2018 18:06:14
== END 2018-06-06 14:33 | disposition short-term general hospital (02) ==
LOC: ER 10:39
DX: S82.241B Displaced spiral fracture of shaft of right tibia, initial encounter for open fracture type I or II (principal); S82.441B Displaced spiral fracture of shaft of right fibula, initial encounter for open fracture type I or II; W19.XXXA Unspecified fall, initial encounter; Y92.009 Unspecified place in unspecified non-institutional (private) residence as the place of occurrence of the external cause; S82.102K Unspecified fracture of upper end of left tibia, subsequent encounter for closed fracture with nonunion; X58.XXXD Exposure to other specified factors, subsequent encounter; E87.1 Hypo-osmolality and hyponatremia; E87.6 Hypokalemia; N28.9 Disorder of kidney and ureter, unspecified; E88.09 Other disorders of plasma-protein metabolism, not elsewhere classified; I10 Essential (primary) hypertension; E11.9 Type 2 diabetes mellitus without complications; E66.01 Morbid (severe) obesity due to excess calories; Z68.43 Body mass index [BMI] 50.0-59.9, adult; Z88.5 Allergy status to narcotic agent; Z88.8 Allergy status to other drugs, medicaments and biological substances; Z91.018 Allergy to other foods; Z23 Encounter for immunization
CPT/HCPCS: 93005; 96376; 99291; 90471; 96375; 96365; 96367; 86900; 86901; 36415; 86850; 85025; 80048; 80053; 73610; 73630; 73560; 73562; 90715; 93010; J3010; J3480; J0690; J3490

== ENCOUNTER 2018-06-21 11:04 | Emergency (ER) | payer MEDICARE, MEDICAID ==
--- NOTE | 2018-06-21 11:44 | ER Document Report ---
ED Extremity Problem, Lower - General Chief Complaint: Leg Pain Stated Complaint: RIGHT LEG SWELLING Time Seen by Provider: 06/21/18 11:23 Notes: 58-year-old female patient emergency department for evaluation of pain in the right leg. Patient fell approximately 2 weeks ago. Had surgery. Has a ebony in her right leg. Has been a complaining of worsening pain in her right calf with swelling. Denies any other symptoms at this time. Denies shortness of breath, chest pain, fever, chills, sweats, abdominal pain or other issues. Currently patient is in a rehab/nursing facility. TRAVEL OUTSIDE OF THE [place] IN LAST 30 DAYS: No - HPI Patient complains to provider of: Pain, Swelling Location: Leg - Related Data Allergies/Adverse Reactions: codeine [Codeine] Allergy (Severe, Verified 02/24/18 17:53) swelling,sob naproxen [Naproxen] Allergy (Severe, Verified 02/24/18 17:53) swelling,sob cinnamon Allergy (Intermediate, Verified 02/24/18 17:53) Urticaria Past Medical History - General Information source: Patient - Social History Smoking Status: Never Smoker Frequency of alcohol use: None Drug Abuse: None Lives with: Alone, [facility] Family History: Reviewed & Not Pertinent Patient has suicidal ideation: No Patient has homicidal ideation: No - Past Medical History Cardiac Medical History: Reports: Hx Hypertension - ON MEDICATION Denies: Hx Congestive Heart Failure, Hx Coronary Artery Disease, Hx Heart Attack Pulmonary Medical History: Denies: Hx Asthma, Hx Bronchitis, Hx COPD, Hx Pneumonia Neurological Medical History: Denies: Hx Cerebrovascular Accident, Hx Seizures Endocrine Medical History: Reports: Hx Diabetes Mellitus Type 2 Renal/ Medical History: Denies: Hx Peritoneal Dialysis Musculoskeletal Medical History: Reports Hx Arthritis - KNEE PAIN (BILATERAL) Psychiatric Medical History: Reports: Hx Bipolar Disorder, Hx Depression, Hx Schizophrenia Past Surgical History: Reports: Hx Gynecologic Surgery - MASS REMOVED FROM OVARY., Hx Orthopedic Surgery - Right knee fracture. Denies: Hx Hysterectomy - Immunizations Hx Diphtheria, Pertussis, Tetanus Vaccination: No Hx Pneumococcal Vaccination: 08/30/16 Review of Systems - Review of Systems Notes: Constitutional: denies: Chills, Diaphoresis, Fever, Malaise, Weakness EENT: denies: Eye discharge, Blurred vision, Tearing, Double vision, Nose congestion, Nose discharge, Throat swelling, Mouth pain Cardiovascular: denies: Palpitations, Heart racing, Orthopnea, Dyspnea, Chest pain Respiratory: denies: Cough, Hurts to breathe, Wheezing, Shortness of breath Gastrointestinal: denies: Abdominal pain, Diarrhea, Nausea, Vomiting, Black stools, bright red blood in stool Genitourinary: denies: Burning, Dysuria, Discharge, Frequency, Flank pain, Hematuria Musculoskeletal: She is complaining of pain in the right calf and right posterior thigh area. Hematologic/Lymphatic: denies: Anemia, Easy bleeding, Easy bruising, Blood clots Neurological/Psychological: denies: Confusion, Dementia, Depression, Loss of consciousness Skin: No lesions, no masses, no skin breakdown, no abscesses Physical Exam - Vital signs Interpretation: Normal - General General appearance: Appears well, Alert - HEENT Head: Normocephalic, Atraumatic Eyes: Normal Pupils: PERRL - Respiratory Respiratory status: No respiratory distress Chest status: Nontender Breath sounds: Normal Chest palpation: Normal - Cardiovascular Rhythm: Regular Heart sounds: Normal auscultation Murmur: No - Abdominal Inspection: Normal Distension: No distension Bowel sounds: Normal Tenderness: Nontender Organomegaly: No organomegaly - Back Back: Normal, Nontender - Extremities General upper extremity: Normal inspection, Nontender, Normal color, Normal ROM , Normal temperature General lower extremity: Other - Patient has a splint on the right lower extremity posterior splint. There are postoperative incision sites that are dressed with no signs of cellulitis or infection on the right anterior knee area. Mild tenderness to palpation of posterior calf and thigh.. No: Sonia's sign - Neurological Neuro grossly intact: Yes Cognition: Normal Orientation: AAOx4 [place] Coma Scale Eye Opening: Spontaneous Lina Coma Scale Verbal: Oriented [place] Coma Scale Motor: Obeys Commands [place] Coma Scale Total: 15 Speech: Normal Motor strength normal: LUE, RUE, LLE, RLE Sensory: Normal - Psychological Associated symptoms: Normal affect, Normal mood - Skin Skin Temperature: Warm Skin Moisture: Dry Skin Color: Normal Course - Re-evaluation Re-evalutation: 06/21/18 12:57 There is no evidence of a DVT. At this time more likely to some postoperative pain. Will recommend repeat ultrasound in 1 week if symptoms persist. Will DC at this time in stable condition. Discharge - Discharge Clinical Impression: Right leg pain Condition: Good Disposition: HOME, SELF-CARE Instructions: Leg Pain Nonspecific ([facility]), Possible Evolving Leg DVT ([facility]) Additional Instructions: If symptoms persist you may need a repeat ultrasound performed within 1 week. Return for any worsening symptoms or concerns. Follow-up with your orthopedic surgeon as instructed. Referrals: ANNIE REDMAN MD [Primary Care Provider] - Follow up as needed
--- NOTE | 2018-06-21 13:14 | XCELERA REPORT ---
[address] [facility] [address] Lower Extremity Venous Evaluation Procedure: Color flow and duplex imaging of the veins of the right lower extremity as well as the left Common Femoral vein. Right Sided Venous Evaluation A non vascular , complex mass in the Popliteal fossa, measuring 3.7 x 0.9 x 0.9 cms is likely a Popliteal cyst or hematoma. Normal vessel filling wall to wall, compression and augmentation as well as Colour flow down to the infrageniculate veins. Left Sided Venous Evaluation The left common femoral vein is fully compressible. Spontaneous and phasic flow is present in the left common femoral vein. Interpretation Summary No duplex evidence of DVT or obstruction in the right lower extremity nor in the left Common Femoral vein. A left popliteal mass is noted. Name: VICK NAVARRO Age: 58 yrs Gender: Female : 1960 Patient Status: Emergency Patient Location: ER Study Date: 06/21/2018 12:17 PM Reason For Study: right leg pain s/p fx and sx Ordering Physician: ИРИНА MAZA Performed By: Gardenia Delatorre : ИРИНА MAZA > Jhonny Oliva
[2018-06-21 14:13] VITALS: BP 106/67
== END 2018-06-21 14:00 | disposition home or self-care (01) ==
LOC: ER 11:04
DX: M79.661 Pain in right lower leg (principal); M79.651 Pain in right thigh; Z98.890 Other specified postprocedural states; I10 Essential (primary) hypertension; E11.9 Type 2 diabetes mellitus without complications; Z88.5 Allergy status to narcotic agent; Z88.8 Allergy status to other drugs, medicaments and biological substances; Z91.018 Allergy to other foods
CPT/HCPCS: 85025; 93971; 99285

== ENCOUNTER 2018-09-30 18:21 | Emergency (ER) | payer MEDICARE, MEDICAID ==
--- NOTE | 2018-09-30 19:45 | ER Document Report ---
ED General - General Chief Complaint: Cold Symptoms Stated Complaint: COLD LIKE SYMPTOMS Time Seen by Provider: 09/30/18 19:24 Primary Care Provider: ANNIE REDMAN MD [Primary Care Provider] - Follow up as needed Notes: Patient is a 58-year-old female who [facility] with complaints of cough and nasal congestion over the last week. She started developing a fever 2 days ago. She states that Dr. Garcia called in an antibiotic for her on Wednesday however she reports she is not improving. She denies any body aches. She reports past medical history of bronchitis, insulin- dependent diabetes and depression. She states she has been in [place] [facility] facility since May after having knee surgery. She does report having her influenza and pneumonia vaccine updated in May. She denies any nausea, vomiting or diarrhea. TRAVEL OUTSIDE OF THE [place] IN LAST 30 DAYS: No - Related Data Allergies/Adverse Reactions: codeine [Codeine] Allergy (Severe, Verified 08/19/18 13:13) swelling,sob naproxen [Naproxen] Allergy (Severe, Verified 08/19/18 13:13) swelling,sob cinnamon Allergy (Intermediate, Verified 08/19/18 13:13) Urticaria Past Medical History - General Information source: Patient - Social History Smoking Status: Never Smoker Family History: Reviewed & Not Pertinent Patient has suicidal ideation: No Patient has homicidal ideation: No - Past Medical History Cardiac Medical History: Reports: Hx Hypertension - ON MEDICATION Denies: Hx Congestive Heart Failure, Hx Coronary Artery Disease, Hx Heart Attack Pulmonary Medical History: Denies: Hx Asthma, Hx Bronchitis, Hx COPD, Hx Pneumonia Neurological Medical History: Denies: Hx Cerebrovascular Accident, Hx Seizures Endocrine Medical History: Reports: Hx Diabetes Mellitus Type 2 Renal/ Medical History: Denies: Hx Peritoneal Dialysis Musculoskeletal Medical History: Reports Hx Arthritis - KNEE PAIN (BILATERAL) Psychiatric Medical History: Reports: Hx Bipolar Disorder, Hx Depression, Hx Schizophrenia Past Surgical History: Reports: Hx Gynecologic Surgery - MASS REMOVED FROM OVARY., Hx Orthopedic Surgery - Right knee fracture. Denies: Hx Hysterectomy - Immunizations Hx Diphtheria, Pertussis, Tetanus Vaccination: No Hx Pneumococcal Vaccination: 08/30/16 Review of Systems - Review of Systems Constitutional: Fever EENT: Nose congestion, Nose discharge. denies: Ear pain, Sinus pressure, Throat pain Cardiovascular: No symptoms reported. denies: Chest pain Respiratory: Cough, Sputum - white. denies: Short of breath, Wheezing Gastrointestinal: No symptoms reported. denies: Diarrhea, Nausea, Vomiting Genitourinary: No symptoms reported Female Genitourinary: No symptoms reported Musculoskeletal: No symptoms reported. denies: Muscle pain Skin: No symptoms reported Hematologic/Lymphatic: No symptoms reported Neurological/Psychological: No symptoms reported Physical Exam - Vital signs Vitals: Temp Pulse Resp BP Pulse Ox 98.4 F 102 H 20 132/78 H 98 09/30/18 18:39 09/30/18 18:39 09/30/18 18:39 09/30/18 18:39 09/30/18 18:39 - Notes Notes: PHYSICAL EXAMINATION: GENERAL: Well-appearing, well-nourished and in no acute distress. HEAD: Atraumatic, normocephalic. EYES: Pupils equal round and reactive to light, extraocular movements intact, conjunctiva are normal. ENT: Nares patent with clear rhinorrhea, oropharynx clear without exudates. Moist mucous membranes. NECK: Normal range of motion, supple without lymphadenopathy LUNGS: Breath sounds equal bilaterally, slightly diminished, no wheezes, rales, scattered mild rhonchi. HEART: Regular rate and rhythm without murmurs. ABDOMEN: Soft, nontender, nondistended abdomen. No guarding, no rebound. No masses appreciated. Female : No CVA tenderness Musculoskeletal: Normal range of motion, no pitting or edema. No cyanosis. NEUROLOGICAL: Cranial nerves grossly intact. Normal sensory, motor exams. PSYCH: Normal mood, normal affect. SKIN: Warm, Dry, normal turgor, no rashes or lesions noted. Course - Re-evaluation Re-evalutation: 09/30/18 19:41 Patient appears well, nontoxic. Her vital signs are within normal limits. Patient's physical examination is unremarkable her lung sounds are clear to auscultation bilaterally. Will obtain influenza testing and chest x-ray. Differential diagnosis includes influenza, pneumonia, viral upper respiratory infection. Chest x-ray is unremarkable with no evidence of infiltrate or pneumothorax. Influenza testing is negative. Patient continues to appear well and has had no episodes of hypoxia, tachycardia and has been afebrile. Likely patient suffering from a viral upper respiratory infection. This was discussed with the patient. I will prescribe her Flonase. Patient verbalizes understanding and agreement with plan. - Vital Signs Vital signs: Temp Pulse Resp BP Pulse Ox 98.0 F 86 16 130/74 H 97 09/30/18 23:59 09/30/18 23:59 09/30/18 23:59 09/30/18 23:59 09/30/18 23:59 Discharge - Discharge Clinical Impression: Viral upper respiratory illness Condition: Stable Disposition: HOME, SELF-CARE Additional Instructions: Your symptoms are most likely due to a viral infection it should resolve over the next 7-14 days. You should take [id number] guanfacine per bottle instructions to help thin the mucus. For nasal congestion: Please take the Flonase as prescribed. You may also use tylenol or ibuprofen as needed for aches and thorat discomfort. Please be sure to drink plenty of fluids and get rest. Return to the emergency department he began having difficulty breathing, chest pain, persistent vomiting, or any other symptoms that are concerning to you. Prescriptions: Fluticasone Propionate [Flonase Nasal Roy 50 Mcg/Roy 16 gm] 2 sprays NASL Q12 #1 inhaler Referrals: ANNIE REDMAN MD [Primary Care Provider] - Follow up as needed
--- NOTE | 2018-09-30 20:02 | RADIOLOGY REPORT (SQ) ---
EXAM DESCRIPTION: CHEST SINGLE VIEW COMPLETED DATE/TIME: 09/30/2018 7:55 pm REASON FOR STUDY: fever, cough COMPARISON: 09/17/2017 EXAM PARAMETERS: NUMBER OF VIEWS: One view. TECHNIQUE: Single frontal radiographic view of the chest acquired. RADIATION DOSE: NA LIMITATIONS: None. FINDINGS: LUNGS AND PLEURA: No opacities, masses or pneumothorax. No pleural effusion. MEDIASTINUM AND HILAR STRUCTURES: No masses. Contour normal. HEART AND VASCULAR STRUCTURES: Heart normal in size. Normal vasculature. BONES: No acute findings. HARDWARE: None in the chest. OTHER: No other significant finding. IMPRESSION: NO ACUTE RADIOGRAPHIC FINDING IN THE CHEST. TECHNICAL DOCUMENTATION: JOB ID: [id number] [employer]- All Rights Reserved Reading location - IP/workstation name: [email or web address]
[2018-09-30 20:38] LABS: A TYPE INFLUENZA AG NEGATIVE (NEGATIVE); B INFLUENZA AG NEGATIVE (NEGATIVE)
[2018-09-30 23:59] VITALS: BP 130/74
== END 2018-10-01 00:25 | disposition home or self-care (01) ==
LOC: ER 18:21
DX: J06.9 Acute upper respiratory infection, unspecified (principal); B97.89 Other viral agents as the cause of diseases classified elsewhere; R05 Cough; R09.81 Nasal congestion; R50.9 Fever, unspecified; E11.9 Type 2 diabetes mellitus without complications; Z79.4 Long term (current) use of insulin; I10 Essential (primary) hypertension; Z79.899 Other long term (current) drug therapy
CPT/HCPCS: 71045; 87804; 99284

== ENCOUNTER → 2020-07-18 | Outpatient (CLI) | payer MEDICARE, MEDICAID ==
--- NOTE | 2020-07-18 09:42 | WOMENS IMAGING REPORT ---
EXAM DESCRIPTION: 3D SCREENING MAMMO BILAT IMAGES COMPLETED DATE/TIME: 07/18/2020 9:12 am REASON FOR STUDY: Z12.31 ENCNTR SCREEN MAMMOGRAM FOR MALIGNANT NEOPLASM OF BREAST Z12.31 ENCNTR SCR EEN MAMMOGRAM FOR MALIGNANT NEOPLASM OF PRETTY COMPARISON: Priors back to 2016 EXAM PARAMETERS: Standard craniocaudal and mediolateral oblique views of each breast recorded using digital acquisition and breast tomosynthesis. Read with the assistance of CAD. .[facility] - R2 Tax Compliance Agent Version 9.2 LIMITATIONS: None. FINDINGS: RIGHT BREAST MASSES: No suspicious masses. CALCIFICATIONS: No new or suspicious calcifications. ARCHITECTURAL DISTORTION: Focal asymmetry with architectural distortion upper inner quadrant about 5 cm deep. ASYMMETRY: See above. OTHER: No other significant findings. LEFT BREAST MASSES: No suspicious masses. CALCIFICATIONS: No new or suspicious calcifications. ARCHITECTURAL DISTORTION: None. ASYMMETRY: None noted. OTHER: No other significant findings. IMPRESSION: Focal asymmetry right breast. 0 Incomplete: Needs Additional Imaging Evaluation and/or prior Mammograms for Comparison. BREAST DENSITY: b. There are scattered areas of fibroglandular density. BIRAD: ASSESSMENT: 0 Incomplete: Needs Additional Imaging Evaluation and/or prior Mammograms for C omparison. RECOMMENDATION: RECOMMENDED FOLLOW-UP: Cone compression views and potential ultrasound right breast. The patient will be contacted for additional imaging. COMMENT: The patient has been notified of the results by letter per MQSA requirements. Additional no tification policies are in place for contacting patient with suspicious or incomplete findings. Quality ID #225: The [employer] recommends an annual screening mammogram for women aged 40 years or over. This facility utilizes a reminder system to ensure that all patients receive reminder letters, and/or direct phone calls for appointments. This includes reminders for routine scr eening mammograms, diagnostic mammograms, or other Breast Imaging Interventions when appropriate. Th is patient will be placed in the appropriate reminder system. TECHNICAL DOCUMENTATION: FINDING NUMBER: (1) ASSESSMENT: (1) JOB ID: [id number] 2010 [employer]- All Rights Reserved Reading location - IP/workstation name: [email or web address]
== END ==
LOC: WI 08:34
PROVIDERS: ATTEND Internal Medicine Geriatric Medicine
DX: Z12.31 Encounter for screening mammogram for malignant neoplasm of breast (principal); N64.89 Other specified disorders of breast
CPT/HCPCS: 77063; 77067

== ENCOUNTER → 2020-07-19 | Outpatient (CLI) | payer MEDICARE, MEDICAID ==
--- NOTE | 2020-07-19 08:36 | Operative Report ---
Operative Report DATE OF SURGERY: 07/19/20 PREOPERATIVE DIAGNOSIS: Morbid obesity, need for pelvic exam POSTOPERATIVE DIAGNOSIS: Same OPERATION: Examination and outpatient environment due to inability to comply with requirements to get a pelvic exam as an outpatient in the office SURGEON: ADAL LOPEZ ANESTHESIA: Other TISSUE REMOVED OR ALTERED: Cervical Pap smear and HPV COMPLICATIONS: None ESTIMATED BLOOD LOSS: None INTRAOPERATIVE FINDINGS: Normal cervix and vagina noted no bleeding was appreciated otherwise pill exam limited by morbid obesity masses are appreciated PROCEDURE: Due to the inability the patient to basically get on a outpatient bed for exam at end of L&D for examination in the facility while using proper stirrups and lighting. The patient had met multiple knee operations that precluded outpatient exam and is required for is wheelchair-bound. After proper placement and lighting pill exam ensued with a normal speculum noted findings. P. Patient was apprised of the findings Pap smear pending return the office in approximately 2 weeks
== END ==
LOC: LC 07:23
PROVIDERS: ATTEND Specialist
DX: Z12.4 Encounter for screening for malignant neoplasm of cervix (principal); Z11.51 Encounter for screening for human papillomavirus (HPV); E66.01 Morbid (severe) obesity due to excess calories
CPT/HCPCS: 87624; 88142

== ENCOUNTER → 2020-08-06 | Outpatient (CLI) | payer MEDICARE, MEDICAID ==
--- NOTE | 2020-08-06 10:27 | WOMENS IMAGING REPORT ---
EXAM DESCRIPTION: 3D DX MAMMO RIGHT UNILAT; U/S BREAST UNILAT LIMITED IMAGES COMPLETED DATE/TIME: 08/06/2020 9:06 am; 08/06/2020 9:38 am REASON FOR STUDY: N63.12 UNSPECIFIED LUMP IN THE RIGHT BREAST, UPPER INNER QUADRANT; RIGHT BREAST N6 3.12 N63.12 UNSPECIFIED LUMP IN THE RIGHT BREAST, UPPER INNER ISIDRO COMPARISON: 07/18/2020 and 06/07/2017. EXAM PARAMETERS: True lateral and spot compression lateral and CC images acquired with tomosynthesis . LIMITATIONS: None. FINDINGS: BREAST LATERALITY: right MASSES: There are circumscribed masses in the superior and inferior breast. CALCIFICATIONS: No new or suspicious calcifications. ARCHITECTURAL DISTORTION: None. The architectural distortion noted on screening mammography effaces with additional compression. ASYMMETRY: None noted. OTHER: No other significant findings. BREAST ULTRASOUND: TECHNIQUE: Static and dynamic grayscale images acquired of the right breast in the specific areas of clinical/mammographic concern. Selected color Doppler images recorded. ELASTOGRAPHY PERFORMED: No. LIMITATIONS: None. FINDINGS: MASS: In the 12 -1 o'clock location, 7-9 cm from the nipple, there is an anechoic cyst measuring 6 x 8 x 14 mm. In the 6 o'clock location, 4- 6 cm from the nipple, there is a 4 x 7 mm anechoic cyst. B oth demonstrate smooth contour with no internal echoes. Distal acoustic enhancement. No solid mass identified. Normal glandular tissue. ELASTOGRAPHY CHARACTERISTICS:Not applicable. OTHER: No other significant finding. IMPRESSION: Breast cysts. No worrisome mammographic or sonographic findings. BREAST DENSITY: b. There are scattered areas of fibroglandular density. BIRAD: ASSESSMENT: 2 Benign findings. RECOMMENDATION: RECOMMENDED FOLLOW UP: Birads 1 or 2: The patient should resume routine screening . SPECIFIC INTERVENTION/IMAGING/CONSULTATION RECOMMENDED:No additional intervention/ imaging/consultati on needed at this time. COMMUNICATION:The imaging findings were not discussed with the patient. Her referring provider has be en notified of the findings. COMMENT: The patient has been notified of the results by letter per MQSA requirements. Additional no tification policies are in place for contacting patient with suspicious or incomplete findings. Quality ID #225: The [employer] recommends an annual screening mammogram for women aged 40 years or over. This facility utilizes a reminder system to ensure that all patients receive reminder letters, and/or direct phone calls for appointments. This includes reminders for routine scr eening mammograms, diagnostic mammograms, or other Breast Imaging Interventions when appropriate. Th is patient will be placed in the appropriate reminder system. TECHNICAL DOCUMENTATION: FINDING NUMBER: (1) ASSESSMENT: (1) JOB ID: [id number] 2010 [employer]- All Rights Reserved Reading location - IP/workstation name: [email or web address]
== END ==
LOC: WI 08:22
PROVIDERS: ATTEND Internal Medicine Geriatric Medicine
DX: N63.12 Unspecified lump in the right breast, upper inner quadrant (principal)
CPT/HCPCS: 76642; 77065; G0279

== ENCOUNTER → 2020-09-24 | Outpatient (CLI) | payer MEDICARE, MEDICAID ==
--- NOTE | 2020-09-24 14:29 | ER RDC ASSESSMENT REPORT ---
Intake - In the Last 14 days Have you traveled outside [place]?: No Have you been in close contact with someone CONFIRMED: Yes Worked in Healthcare?: No - Symptoms Subjective Fever([place] feverish): No Chills: No Muscule Aches: No Runny Nose: No Sore Throat: No Cough (New or worsening chronic cough): Yes Shortness of breath: No Nausea or Vomiting: No Headache: No Abdominal Pain: No Diarrhea(3 or more loose stools in last 24 hours): No - Do you have any of the following Chronic lung disease: Asthma or emphysema or COPD: No Cystic Fibrosis: No Diabetes: Yes High Blood Pressure: No Cardiovascular Disease: No Chronic Kidney Disease: No Chronic Liver Disease: No Chronic blood disorder like Sickle Cell Disease: No Weak immune system due to disease or medication: No Neurologic condition that limits movement: No Developmental delay - Moderate to Severe: No Recent (within past 2 weeks) or current : No Morbid Obesity (>100 pounds over ideal weight): No - Objective Temperature: 98.6 F Pulse Rate: 111 Respiratory Rate: 17 Blood Pressure: 139/76 O2 Sat by Pulse Oximetry: 97 Objective: Given above, testing performed: If Testing Performed: Test Specimen Type Sent to General - General Information source: Patient Notes: Patient presents [facility] for screening for the coronavirus. Patient reports recent exposure to someone who tested positive. - Related Data Allergies/Adverse Reactions: codeine [Codeine] Allergy (Severe, Verified 08/19/18 13:13) swelling,sob naproxen [Naproxen] Allergy (Severe, Verified 08/19/18 13:13) swelling,sob cinnamon Allergy (Intermediate, Verified 08/19/18 13:13) Urticaria Past Medical History - General Information source: Patient - Social History Smoking Status: Never Smoker Family History: Reviewed & Not Pertinent - Past Medical History Cardiac Medical History: Denies: Hx Congestive Heart Failure, Hx Coronary Artery Disease, Hx Heart Attack Pulmonary Medical History: Denies: Hx Asthma, Hx Bronchitis, Hx COPD, Hx Pneumonia Neurological Medical History: Denies: Hx Cerebrovascular Accident, Hx Seizures Endocrine Medical History: Reports: Hx Diabetes Mellitus Type 2 Renal/ Medical History: Denies: Hx Peritoneal Dialysis Musculoskeletal Medical History: Reports Hx Arthritis - KNEE PAIN (BILATERAL) Psychiatric Medical History: Reports: Hx Bipolar Disorder, Hx Depression, Hx Schizophrenia Past Surgical History: Reports: Hx Gynecologic Surgery - MASS REMOVED FROM OVARY., Hx Orthopedic Surgery - Right knee fracture. Denies: Hx Hysterectomy Physical Exam - Notes Notes: The patient was evaluated during the global Covid 19 pandemic, and that diagnosis was suspected/considered upon their initial presentation. Their evaluation and testing was consistent with current guidelines for patients who present with complaints or symptoms that may be related to Covid 19. Full physical exam could not be performed due to covid 19 isolation protocols. Constitutional: Nontoxic appearance, no acute distress Eyes: Nonicteric, sclera clear ENT: Posterior pharynx without exudate, no tonsillar hypertrophy Cardiovascular: Heart rate and rhythm regular Respiratory: Breath sounds clear bilaterally nonlabored breathing, no use of accessory muscles, no tachypnea Gastrointestinal: Abdomen not distended Muculoskeletal: Moves all extremities well Skin: Normal color Neuro: Awake alert oriented, normal speech Psych: Normal mood and affect Diagnostic Results Laboratory Results: Patient presents with exposure worrisome for possible Covid 19. Patient does not have emergency worrying symptoms such as difficulty breathing, shortness of breath, chest pain, pressure, confusion or cyanosis. Patient appears suitable for discharge as patient is nontoxic in appearance. Patient advised of elevated heart rate during examination. Patient denies any chest discomfort, palpitations or shortness of breath. Patient feels that her fast heart rate is due to her presentation here today. Patient encouraged to monitor her heart rate at home and follow-up with the ER for any worsening of her symptoms. Good return precautions have been discussed with patient, patient verbalized understanding and is agreeable with discharge plan of care at this time. Patient Education/Counseling Counseling/Education: Patient was provided with discharge information including: As a person under investigation for Covid 19, the [place] department of Health and Human Services, division of public health advises you to adhere to the following guidance until your test results are reported to you. If your test result is positive, you will receive additional information from your provider and your local health department at that time. Remain at home until you are cleared by the health provider or public health authorities. Keep a log of visitors to your home, notify any visitors to your home of your isolation status. If you plan to move to a new address or leave the county, notify the local health department in your County. Call your doctor or seek care if you have an urgent medical need. Before seeking medical care, call ahead to get instructions from the provider before arriving at the medical office clinic or hospital. Notify them that you are being tested for the virus that causes Covid 19 so that arrangements can be made, as necessary, to prevent transmission to others in the healthcare setting. Next, notify the local health department in your county. If a medical emergency arises and you need to call 911, inform the first responders that you are being tested for the virus that causes Covid 19. Next, notify the local health department in your county. [facility]DC Discharge - Discharge Clinical Impression: Encounter for screening for COVID-19 Condition: Stable Disposition: Home; Selfcare
[2020-09-24 14:42] VITALS: BP 139/76
== END ==
LOC: RDC 14:26
PROVIDERS: ATTEND Nurse Practitioner Family
DX: Z20.822 Contact with and (suspected) exposure to COVID-19 (principal); R05 Cough; E11.9 Type 2 diabetes mellitus without complications; M13.862 Other specified arthritis, left knee; M13.861 Other specified arthritis, right knee; F31.9 Bipolar disorder, unspecified
CPT/HCPCS: 99202; U0003; G0463; C9803; 87635; 99211